=== PATIENT | female | born 1955 | race Caucasian/White ===

== ENCOUNTER 2016-12-14 19:47 | Emergency (ER) | payer OTHER, MEDICARE ==
--- OUTSIDE RECORDS SUMMARY | 2016-12-14 19:50 | XMS | Clinical Summary ---
:1955 Author Organization [facility] Address [address] [place] [address] Phone Care Team Providers Name Role Phone , Primary Care Provider Unavailable Allergies Not on File Current Medications Not on file Active Problems Not on file Social History Tobacco Use Types Packs/Day Years Used Date Never Assessed Sex Assigned at Date Recorded Not on file Last Filed Vital Signs Not on file Plan of Treatment Not on file Results Not on filefrom Last 3 Months
[2016-12-14] MEDS ORDERED: Ondansetron HCl/PF 4 MG/2 ML Vial ONE (19:56)
[2016-12-14] MEDS ORDERED: Fentanyl 100 MCG/2 ML VIAL ONE (19:56)
[2016-12-14] MEDS ORDERED: Metoclopramide HCl 10 MG/2 ML VIAL ONE (19:56)
[2016-12-14] MEDS ORDERED: Ketorolac Tromethamine 30 MG/ML VIAL ONE (19:59)
[2016-12-14] MEDS ORDERED: Dexamethasone 4 mg/ml Vial ONE (19:59)
[2016-12-14 20:16] LABS: #Basophils 0.1 thou/uL (0.0-0.2); #Eosinphils 0.1 thou/uL (0.0-0.7); #Lymphocytes 3.6 thou/uL (1.20-3.40); #Monocytes 0.8 thou/uL (0.11-0.59); #Neutrophils 7.7 thou/uL (1.40-6.50); %Basophils 0.5 % (0.0-1.0); %Eosinophils 0.6 % (0.0-10.0); %Lymphocytes 29.6 % (21.0-51.0); %Monocytes 6.2 % (0.0-10.0); Hematocrit 43.9 % (36.0-47.0); Mean Platelet Volume 6.8 fL (7.4-10.4); Red Blood Cell (RBC) Count 4.51 mill/uL (4.20-5.40); White Blood Cell (WBC) Count 12.1 thou/uL (4.8-10.8)
[2016-12-14 20:34] LABS: ALT (SGPT) 22 U/L (8-55); AST (SGOT) 21 U/L (5-34); Alkaline Phosphatase 85 U/L (40-150); Anion Gap 14 mmol/L (10-20); BUN (Urea Nitrogen) 12 mg/dL (9.8-20.1); Bilirubin, Total Less than 0.2 mg/dL (0.2-1.2); CK (CPK) 69 U/L (29-168); Calc. Creatinine Clearance 0 mL/min (70-130); Calcium 9.4 mg/dL (7.8-10.44); Carbon Dioxide 26 mmol/L (22-29); Chloride 103 mmol/L (98-107); Estimated GFR-MDRD 89; Globulin 3.5 g/dL (2.4-3.5); Protein, Total 7.5 g/dL (6.0-8.3)
[2016-12-14] MEDS ORDERED: Potassium Chloride 20 MEQ TAB ONE (20:45)
--- NOTE | 2016-12-14 21:24 | CT ---
CT HEAD WITHOUT IV CONTRAST: 12/14/16 HISTORY: Acute headache that began at 1200 hours today. High blood pressure. COMPARISON: 02/20/15 FINDINGS: There is no evidence of a hemorrhage, acute infarction, mass effect or midline shift. Ventricular sy stem is normal in size, shape and position. There has been no interval change when compared to the p rior exam. IMPRESSION: No acute intracranial process. If symptoms persists, consider MRI of brain for further evaluation. POS: [facility]
== END 2016-12-14 21:22 | disposition home or self-care (01) ==
LOC: ERS 19:47
DX: E87.6 Hypokalemia (principal); R51 Headache; K21.9 Gastro-esophageal reflux disease without esophagitis; F41.9 Anxiety disorder, unspecified; F32.9 Major depressive disorder, single episode, unspecified; Z79.891 Long term (current) use of opiate analgesic; Z79.899 Other long term (current) drug therapy
CPT/HCPCS: 36415; 70450; 80053; 82550; 85025; 96365; 96375; J1100; J1885; J2405; J2765; J3010

== ENCOUNTER 2017-02-07 09:03 | Observation (INO) | payer OTHER ==
[2017-02-07 09:15] LABS: #Eosinphils 0.1 thou/uL (0.0-0.7); #Lymphocytes 2.8 thou/uL (1.20-3.40); #Monocytes 0.8 thou/uL (0.11-0.59); #Neutrophils 6.5 thou/uL (1.40-6.50); %Basophils 0.1 % (0.0-1.0); %Eosinophils 1.3 % (0.0-10.0); %Lymphocytes 27.6 % (21.0-51.0); %Monocytes 8.2 % (0.0-10.0); Hematocrit 41.9 % (36.0-47.0); Mean Platelet Volume 6.7 fL (7.4-10.4); Red Blood Cell (RBC) Count 4.35 mill/uL (4.20-5.40); White Blood Cell (WBC) Count 10.3 thou/uL (4.8-10.8)
[2017-02-07 09:29] LABS: ALT (SGPT) 24 U/L (8-55); AST (SGOT) 26 U/L (5-34); Alkaline Phosphatase 84 U/L (40-150); Anion Gap 15 mmol/L (10-20); BUN (Urea Nitrogen) 13 mg/dL (9.8-20.1); Bilirubin, Total 0.2 mg/dL (0.2-1.2); Calc. Creatinine Clearance 0 mL/min (70-130); Calcium 9.1 mg/dL (7.8-10.44); Carbon Dioxide 24 mmol/L (22-29); Chloride 108 mmol/L (98-107); Estimated GFR-MDRD 86; Globulin 3.2 g/dL (2.4-3.5); Protein, Total 7.1 g/dL (6.0-8.3)
[2017-02-07 09:33] LABS: Troponin I Less than 0.010 ng/mL (< 0.028)
[2017-02-07 09:56] LABS: Bilirubin Negative (Negative); Blood, Urine Negative (Negative); Glucose, Urine (Dipstick) Negative (Negative); Ketone, Urine Negative (Negative); Nitrite Negative (Negative); Protein, Urine (Dipstick) Negative (Neg-Trace); Urobilinogen 0.2 mg/dL (0.2-1.0)
[2017-02-07] MEDS ORDERED: Morphine 4 MG/ML VIAL ONE (10:09)
[2017-02-07] MEDS ORDERED: Ondansetron HCl/PF 4 MG/2 ML Vial ONE (10:10)
[2017-02-07] MEDS ORDERED: Nitroglycerin 2% Ointment 1 INCH/1 GM Packet ONE (10:10)
--- NOTE | 2017-02-07 10:11 | RAD ---
PORTABLE AP CHEST XRAY: DATE: 02/07/17. HISTORY: Chest pain. COMPARISON: 03/16/16. FINDINGS: Again noted is a linear density at the right lung base which given stability over this period of time may represent scarring. There is minimal linear scarring versus atelectasis at the left lung base. The lungs are otherwise clear. Cardiac silhouette and pulmonary vasculature are within normal limit s. No other interval change. IMPRESSION: 1. No acute cardiopulmonary process. 2. Scarring right lung base. 3. Minimal atelectasis versus scarring left lung base. POS: [facility]
[2017-02-07 12:45] LABS: Troponin I Less than 0.010 ng/mL (< 0.028)
[2017-02-07] MEDS ORDERED: Nitroglycerin 2% Ointment 1 INCH/1 GM Packet TOP SCH (14:00)
[2017-02-07] MEDS ORDERED: Senokot 8.6 MG TAB PO PRN (14:13)
[2017-02-07] MEDS ORDERED: Pepto Bismol Chew TAB PO PRN (14:13)
[2017-02-07] MEDS ORDERED: Mag-Al 1200 mg/1200 mg/30 ML UDCUP PO PRN (14:13)
[2017-02-07] MEDS ORDERED: Guaifenesin DM 100-10/5 ML UDCUP PO PRN (14:13)
[2017-02-07] MEDS ORDERED: Acetaminophen 325 MG TAB PO PRN (14:13)
[2017-02-07] MEDS ORDERED: Ondansetron ODT 4 MG TAB PO PRN (14:16)
[2017-02-07] MEDS ORDERED: Ondansetron HCl/PF 4 MG/2 ML Vial IVP PRN (14:16)
--- NOTE | 2017-02-07 14:22 | HP ---
REASON FOR ADMISSION: Chest pain. HISTORY OF PRESENT ILLNESS: The patient had come to [facility] for a routine echo. After that, the patient was trying to preregister for a cardiac catheterization on Tuesday. During this process of walking up to the hospital from [facility] office, the patient developed retrosternal chest pain. She also had associated shortness of breath and palpitations. She felt like she would pass out. The chest pain was 9/10 in intensity. She received morphine, nitroglycerin transdermal, and aspirin. All of this finally brought her chest pain down. The chest pain is worse on deep breathing. She has no complaints of cough or expectoration. No complaints of fever. No flu-like symptoms. She states she has had prior stress test x2, the last one being more than 15 years ago, both of which were abnormal. These were done at Dr. Romero' s office. She has never had a cardiac catheterization before. PAST MEDICAL/SURGICAL HISTORY: Depression, hypertension, anxiety disorder, prior history of acute pancreatitis x2 with atrophy and takes Creon, history of melanomas with prior resection, prior history of cholecystectomy in 1998 with ERCP and sphincterotomy, fibromyalgia, right lower leg laceration with skin grafting, tonsillectomy, hysterectomy. CURRENT MEDICATIONS: The patient is on Xanax 0.5 mg p.o. 1 tablet in a.m. and 2 tablets at bedtime, Abilify 2 mg p.o. daily for depression, Lamictal 50 mg p.o. daily for depression per patient, Lexapro 10 mg in a.m. and 5 mg p.o. q.p.m. again for depression, Estradiol 0.5 mg p.o. q.a.m., Benicar 40 mg p.o. q.a.m., Lasix 20 mg p.o. daily, K-Dur 20 mEq p.o. daily, Creon 36,000 two capsules before meals, one before breakfast and one with evening snack. She is also on hydrocodone, Excedrin and ferritin on a p.r.n. basis. ALLERGIES: BACTRIM and LEVAQUIN. PERSONAL HISTORY: Does not abuse alcohol or drugs. No history of smoking. FAMILY HISTORY: Mother is alive and she is 92 years old. She has had history of stent placed for her coronaries. Father of massive CVA at the age of 84 years. REVIEW OF SYSTEMS: The following complete review of systems was negative, unless otherwise mentioned in the HPI or below: Constitutional: Weight loss or gain, ability to conduct usual activities. Skin: Rash, itching. Eyes: Double vision, pain. ENT/Mouth: Nose bleeding, neck stiffness, pain, tenderness. Cardiovascular: Palpitations, dyspnea on exertion, orthopnea. Respiratory: Shortness of breath, wheezing, cough, hemoptysis, fever or night sweats. Gastrointestinal: Poor appetite, abdominal pain, heartburn, nausea, vomiting, constipation, or diarrhea. Genitourinary: Urgency, frequency, dysuria, nocturia. Musculoskeletal: Pain, swelling. Neurologic/Psychiatric: Anxiety, depression. Allergy/Immunologic: Skin rash, bleeding tendency. PHYSICAL EXAMINATION: GENERAL: The patient is a 61-year-old female who is currently not in any acute distress and is chest pain free. VITAL SIGNS: Blood pressure on arrival 162/74, pulse 100 per minute, respiratory rate 16 per minute, temperature 98.2 degrees Fahrenheit, saturating 95% on room air. NECK: Supple, no elevated JVD. HEENT: Eyes; extraocular muscles intact. Pupils reacting to light. Oral cavity; mucous membranes are moist. No exudates or congestion. CARDIOVASCULAR: S1, S2 heard. Regular rhythm. RESPIRATORY: Air entry 2+ bilateral. No rales or rhonchi. ABDOMEN: Soft, bowel sounds heard. No tenderness, rigidity or guarding. EXTREMITIES: No peripheral edema or calf tenderness. VASCULAR SYSTEM: Peripheral pulses 1+ bilateral. No ischemic ulcerations or gangrene. CENTRAL NERVOUS SYSTEM: No gross focal deficits seen. Patient is alert, awake , oriented x3. PSYCHIATRIC: The patient's mood is euthymic. No hallucinations or delusions. LABORATORY AND X-RAY FINDINGS: White count of 10, H&H 13 and 41, platelet count 347. MCV is 96 with 62% neutrophils. Electrolytes are stable. BUN 13, creatinine 0.7, glucose 68. Troponin x2 is negative. BNP 69. Chest x-ray done shows no acute cardiopulmonary abnormalities. EKG done shows normal sinus rhythm at 91 beats per minute. CLINICAL IMPRESSION AND PLAN: The patient will be placed under observation on telemetry for chest pain, rule out acute coronary syndrome. The patient was apparently scheduled for cardiac catheterization on Tuesday by Dr. Tuttle. In view of her current chest pain with complete relief with nitroglycerin and aspirin along with morphine, the patient will be kept n.p.o. after midnight for cardiac catheterization in the morning. I have discussed this with Dr. Tuttle. She has had an echo done this morning at [facility]. We will see the trending of one more set of troponin. We will continue her home medications including Xanax, Abilify, full dose aspirin, Lexapro, lamotrigine as before. She will be on a small dose of Lopressor for cardiac protection for now. We will also place her on nitro paste half inch q.8 hourly. We will continue to closely monitor her on telemetry. [facility]
[2017-02-07] MEDS: HYDROcodone/Acetaminophen 10/325 mg Tablet PO PRN ×2 (14:42→22:18)
[2017-02-07 14:44] VITALS: BMI 29.5
[2017-02-07] MEDS ORDERED: Ibuprofen 600 MG TAB PO SCH (16:45)
[2017-02-07] MEDS ORDERED: Communication Order-Pharmacy FS SCH ×2 (16:45)
[2017-02-07] MEDS ORDERED: Diazepam 5 MG TAB PO SCH (16:45)
[2017-02-07 17:13] LABS: Troponin I Less than 0.010 ng/mL (< 0.028)
[2017-02-07] MEDS ORDERED: Ketorolac Tromethamine 30 MG/ML VIAL IVP PRN (19:00)
[2017-02-07] MEDS ORDERED: ALPRAZolam 1 MG TAB PO PRN (19:09)
[2017-02-07] MEDS ORDERED: ALPRAZOLAM PO SCH ×2 (21:00)
[2017-02-07] MEDS: Famotidine 20 MG TAB PO SCH (21:04)
[2017-02-07] MEDS: Metoprolol Tartrate 25 MG TAB PO SCH (21:04)
[2017-02-08 04:52] LABS: #Eosinphils 0.2 thou/uL (0.0-0.7); #Lymphocytes 2.2 thou/uL (1.20-3.40); #Monocytes 0.5 thou/uL (0.11-0.59); #Neutrophils 2.6 thou/uL (1.40-6.50); %Basophils 0.6 % (0.0-1.0); %Eosinophils 2.8 % (0.0-10.0); %Lymphocytes 39.7 % (21.0-51.0); %Monocytes 9.8 % (0.0-10.0); Hematocrit 37.8 % (36.0-47.0); Red Blood Cell (RBC) Count 3.85 mill/uL (4.20-5.40); White Blood Cell (WBC) Count 5.4 thou/uL (4.8-10.8)
[2017-02-08] MEDS ORDERED: Iopamidol 370 76% 100 ML VIAL ONE ×2 (05:05→17:28)
[2017-02-08 05:06] LABS: Anion Gap 10 mmol/L (10-20); BUN (Urea Nitrogen) 12 mg/dL (9.8-20.1); Calc. Creatinine Clearance 117 mL/min (70-130); Calcium 8.3 mg/dL (7.8-10.44); Carbon Dioxide 26 mmol/L (22-29); Chloride 106 mmol/L (98-107); Cholesterol 173 mg/dl (< 200 Desired); Estimated GFR-MDRD Greater than 90; LDL Cholesterol, Calculated 83 mg/dL
[2017-02-08] MEDS: Famotidine 20 MG TAB PO SCH (05:56)
[2017-02-08] MEDS: Metoprolol Tartrate 25 MG TAB PO SCH (05:57)
[2017-02-08] MEDS ORDERED: Diazepam 5 MG TAB PO SCH (06:00)
[2017-02-08] MEDS: Sodium Chloride 0.9% 1,000 ML IV SCH ×2 (06:02→15:54)
[2017-02-08] MEDS: HYDROcodone/Acetaminophen 10/325 mg Tablet PO PRN ×2 (08:20→12:32)
[2017-02-08] MEDS ORDERED: Heparin 1000 UNIT/NS 500ML(OR) 1,000 ML ONE (08:31)
--- NOTE | 2017-02-08 08:34 | PDOC.PN ---
- Subjective Encounter Start Date: 02/08/17 Encounter Start Time: 07:15 Subjective: no further chest pain or sob - Objective Resuscitation Status: Resuscitation Status FULL:Full Resuscitation MAR Reviewed: Yes Vital Signs & Weight: Vital Signs (12 hours) Temp Pulse Resp BP BP Pulse Ox 02/08/17 07:51 97.6 F 74 16 145/75 H 93 L 02/08/17 04:21 97.6 F 77 16 138/71 93 L 02/08/17 02:42 96 02/07/17 21:11 97.5 F L 81 16 02/07/17 20:43 97.5 F L 81 16 136/69 93 L Weight Weight 172 lb 5 oz I&O: 02/07/17 02/08/17 02/09/17 06:59 06:59 06:59 Intake Total 960 Balance 960 Result Diagrams: 02/08/17 04:24 02/08/17 04:24 Phys Exam - Physical Examination HEENT: PERRLA, moist MMs Neck: no JVD, supple Respiratory: no wheezing, no rales Cardiovascular: RRR, no significant murmur Gastrointestinal: soft, non-tender, positive bowel sounds Musculoskeletal: no edema, pulses present Neurological: non-focal, moves all 4 limbs Psychiatric: A&O x 3 Dx/Plan (1) Chest pain Code(s): R07.9 - CHEST PAIN, UNSPECIFIED Status: Acute Qualifiers: Chest pain type: unspecified Qualified Code(s): R07.9 - Chest pain, unspecified (2) H/O fibromyalgia Code(s): Z87.39 - PERSONAL HISTORY OF DISEASES OF THE MS SYS AND CONN TISS Status: Chronic (3) Anxiety and depression Code(s): F41.9 - ANXIETY DISORDER, UNSPECIFIED; F32.9 - MAJOR DEPRESSIVE DISORDER, SINGLE EPISODE, UNSPECIFIED Status: Chronic (4) GERD (gastroesophageal reflux disease) Code(s): K21.9 - GASTRO-ESOPHAGEAL REFLUX DISEASE WITHOUT ESOPHAGITIS Status: Chronic Qualifiers: Esophagitis presence: esophagitis presence not specified Qualified Code(s) : K21.9 - Gastro-esophageal reflux disease without esophagitis (5) Hypertension Code(s): I10 - ESSENTIAL (PRIMARY) HYPERTENSION Status: Chronic Qualifiers: Hypertension type: essential hypertension Qualified Code(s): I10 - Essential (primary) hypertension (6) Migraine Code(s): G43.909 - MIGRAINE, UNSP, NOT INTRACTABLE, WITHOUT STATUS MIGRAINOSUS Status: Chronic Qualifiers: Migraine type: unspecified - Plan cardiac enzymes are -ve -: ldl is around 80 -: for cath this am -: dc plan based on cath results * . Review of Systems - Medications/Allergies Allergies/Adverse Reactions: Allergies Allergy/AdvReac Type Severity Reaction Status Date / Time levofloxacin [From Levaquin] Allergy Severe Anaphylaxis Verified 02/08/17 01:53 sulfamethoxazole Allergy Severe Anaphylaxis Verified 10/09/15 10:56 [From Bactrim] trimethoprim [From Bactrim] Allergy Severe Anaphylaxis Verified 10/09/15 10:56 pantoprazole sodium AdvReac Headache Verified 09/29/15 22:26 [From Protonix] Medications: Current Medications Acetaminophen (Tylenol) 650 mg PO Q4H PRN PRN Reason: Headache/Fever or Pain Hydrocodone Bitart/Acetaminophen ([place] 10/325) 1 tab PO Q4H PRN PRN Reason: Pain Last Admin: 02/08/17 08:20 Dose: 1 tab Al Hydroxide/Mg Hydroxide (Maalox) 30 ml PO Q6H PRN PRN Reason: Heartburn or Indigestion Alprazolam (Xanax) 1 mg PO HS PRN PRN Reason: Anxiety Last Admin: 02/07/17 21:05 Dose: 1 mg Aripiprazole (Abilify) 2 mg PO QAM [facility] Last Admin: 02/08/17 05:56 Dose: 2 mg Aspirin (Aspirin) 325 mg PO DAILY [facility] Last Admin: 02/08/17 05:56 Dose: 325 mg Bismuth Subsalicylate (Pepto Bismol) 2 tab PO Q1H PRN PRN Reason: Diarrhea/Loose Stools Diazepam (Valium) 5 mg PO ONE [facility] Stop: 02/08/17 16:46 Escitalopram Oxalate (Lexapro) 10 mg PO QAM [facility] Last Admin: 02/08/17 05:56 Dose: 10 mg Estradiol (Estrace) 0.5 mg PO DAILY [facility] Last Admin: 02/08/17 05:56 Dose: 0.5 mg Famotidine (Pepcid) 20 mg PO BID [facility] Last Admin: 02/08/17 05:56 Dose: 20 mg Guaifenesin/Dextromethorphan (Robitussin Dm) 15 ml PO Q4H PRN PRN Reason: Cough Sodium Chloride (Normal Saline 0.9%) 1,000 mls @ 100 mls/hr IV .Q10H [facility] Last Admin: 02/08/17 06:02 Dose: 1,000 mls Lamotrigine (Lamictal) 50 mg PO QAM [facility] Last Admin: 02/08/17 05:56 Dose: 50 mg Metoprolol Tartrate (Lopressor) 12.5 mg PO BID [facility] Last Admin: 02/08/17 05:57 Dose: 12.5 mg Alprazolam [Xanax Xr (0.5 Mg] 1 Tab) 0 each PO QAM [facility] Alprazolam [Xanax Xr (0.5 Mg] 2 Tab)) 0 each PO HS [facility] Senna (Senokot) 2 tab PO HSPRN PRN PRN Reason: Constipation Sodium Chloride (Flush - Normal Saline) 10 ml IVF Q12HR [facility] Last Admin: 02/08/17 05:57 Dose: Not Given
[2017-02-08] MEDS ORDERED: Estradiol 1 MG TAB PO SCH (09:00)
[2017-02-08] MEDS ORDERED: lamoTRIgine 25 MG TAB PO SCH (09:00)
[2017-02-08] MEDS ORDERED: ALPRAZOLAM PO SCH ×2 (09:00)
[2017-02-08] MEDS ORDERED: Enoxaparin Sodium 40 MG/0.4 ML SYRINGE SC SCH (09:00)
[2017-02-08] MEDS ORDERED: ESTRADIOL 0.5 MG PO SCH (09:00)
[2017-02-08] MEDS ORDERED: Aripiprazole 2 MG TAB PO SCH (09:00)
[2017-02-08] MEDS ORDERED: Escitalopram Oxalate 10 mg Tablet PO SCH (09:00)
[2017-02-08] MEDS ORDERED: Aspirin 325 MG TAB PO SCH (09:00)
[2017-02-08] MEDS ORDERED: Fentanyl 100 MCG/2 ML VIAL ONE (09:22)
[2017-02-08] MEDS ORDERED: Midazolam HCl 2 mg/2 ml Vial ONE (09:22)
[2017-02-08] MEDS ORDERED: Metoprolol Tartrate 5 MG/5 ML VIAL ONE (09:43)
[2017-02-08] MEDS ORDERED: Nitroglycerin 100MG/250ML BOT 250 ML ONE (09:43)
[2017-02-08] MEDS ORDERED: traMADol HCl 50 MG TAB PO PRN (12:34)
[2017-02-08] MEDS ORDERED: Nitroglycerin 0.4 MG TAB (25 Tab Bottle) SL PRN (12:34)
[2017-02-08] MEDS ORDERED: Acetaminophen/Codeine 30-300mg Tablet PO PRN ×2 (12:34)
[2017-02-08] MEDS ORDERED: Sodium Chloride 0.9% 200 ML IV SCH (12:45)
[2017-02-08 16:27] VITALS: BP 159/79; TEMP 97.3
--- NOTE | 2017-02-09 12:45 | DIS ---
DATE OF ADMISSION: 02/07/2017 DATE OF DISCHARGE: 02/08/2017 DISCHARGE DISPOSITION: To home. PRIMARY DISCHARGE DIAGNOSIS: Chest pain, likely noncardiac. SECONDARY DISCHARGE DIAGNOSES: Fibromyalgia, anxiety, depression, gastroesophageal reflux disease, hypertension, migraine. PROCEDURES DONE DURING HOSPITALIZATION: The patient has had cardiac catheterization done by Dr. Tuttle, which showed no flow limiting coronary artery disease. Ejection fraction was 60%. There was 10% to 20% plaque in RCA , otherwise normal coronaries. H&H are 12 and 37, platelet count 305, total cholesterol 173, triglycerides 197, LDL 83, HDL 51. Troponin x3 negative. BNP 69. DISCHARGE MEDICATIONS: Xanax as before, Abilify 2 mg p.o. q.a.m., Excedrin p.r.n. for migraine, Lexapro 5 mg at bedtime and 10 mg p.o. q.a.m., estradiol 0.5 mg p.o. q.a.m., [place] p.r.n. for pain, Lamictal 50 mg p.o. q.a.m., Creon before meals as before, Benicar 40 mg p.o. daily. ALLERGIES: LEVAQUIN, PROTONIX and SULFA. INPATIENT CONSULTS: Dr. Tuttle for Cardiology. DISCHARGE PLAN: The patient to follow up with primary care physician in 1 week. BRIEF COURSE DURING HOSPITALIZATION: The patient initially came to ER with complaints of chest pain with associated shortness of breath and palpitation. She has had 3 sets of cardiac enzymes done, which were negative. The patient was scheduled for cardiac catheterization on Tuesday by Dr. Tuttle, but this was preponed and she has had the same done during her brief stay here. The cardiac catheterization has not revealed any flow limiting disease. She has remained hemodynamically stable and will be shortly discharged home. She has had two prior abnormal stress tests done hence the scheduled cardiac catheterization. She is otherwise hemodynamically stable and is cleared for discharge by Dr. Tuttle. Please see face to face documentation on [facility] for the day of discharge. [facility]
== END 2017-02-08 16:37 | disposition home or self-care (01) ==
LOC: ERS 09:03 → ERHOLD 10:06 → INTOOBSV 10:06 → 2SW 13:55
PROVIDERS: ADMIT Internal Medicine; ATTEND Internal Medicine
DX: R07.89 Other chest pain (principal); I10 Essential (primary) hypertension; M79.7 Fibromyalgia; K21.9 Gastro-esophageal reflux disease without esophagitis; F41.9 Anxiety disorder, unspecified; F32.9 Major depressive disorder, single episode, unspecified; G43.909 Migraine, unspecified, not intractable, without status migrainosus; Z88.1 Allergy status to other antibiotic agents; Z88.2 Allergy status to sulfonamides; Z88.8 Allergy status to other drugs, medicaments and biological substances; Z79.899 Other long term (current) drug therapy; Z90.49 Acquired absence of other specified parts of digestive tract; Z98.890 Other specified postprocedural states; Z87.891 Personal history of nicotine dependence
CPT/HCPCS: 36415; 71010; 76942; 80048; 80053; 80061; 81003; 82553; 83880; 84484; 85025; 93005; 93458; 94760; 96361; 96374; 96375; 96376; 99152; 99153; A4216; C1769; G0378; J1644; J1885; J2250; J2270; J2405; J3010

== ENCOUNTER 2017-03-10 07:17 | Outpatient (CLI) | payer OTHER | END 2017-03-10 07:18 | disposition home or self-care (01) | LOC: BICULT 07:17 | PROVIDERS: ATTEND Internal Medicine Gastroenterology | DX: K86.9 Disease of pancreas, unspecified (principal); Z90.49 Acquired absence of other specified parts of digestive tract | CPT/HCPCS: 76700 ==

== ENCOUNTER 2017-03-18 08:15 | Outpatient (CLI) | payer OTHER ==
--- NOTE | 2017-03-18 12:16 | CT ---
CT ABDOMEN WITH AND WITHOUT IV CONTRAST: HISTORY: Pancreas disorder. COMPARISON: 03/16/2016 FINDINGS: Fatty infiltration and atrophy of the head and neck and midline body of the pancreas is again seen. No pancreatic calcifications are noted. No pancreatic mass is identified. There is scarring at the medial segment of the right lower lobe. Tiny hypodensity in hepatic segment 4 is stable. The spleen, adrenal glands, and kidneys are normal. The patient is post cholecystecto my. No free air, free fluid, or lymphadenopathy is seen. There are vascular calcifications without evidence of aneurysmal dilatation of the abdominal aorta. A normal appearing appendix is noted. The small bowel loops are not abnormally dilated. A small fat-containing ventral hernia is again seen. There are degenerative changes in the spine. There is mild colonic diverticulosis. IMPRESSION: Stable exam since 03/16/2016. POS: [facility]
[2017-03-18] MEDS ORDERED: Iopamidol 370 76% 100 ML VIAL ONE (16:54)
--- NOTE | 2017-03-23 10:25 | CT ---
CT ABDOMEN WITH AND WITHOUT IV CONTRAST: CT PELVIS W CON: HISTORY: Pancreas disorder. COMPARISON: 03/16/2016 FINDINGS: Fatty infiltration and atrophy of the head and neck and midline body of the pancreas is again seen. No pancreatic calcifications are noted. No pancreatic mass is identified. There is scarring at the medial segment of the right lower lobe. Tiny hypodensity in hepatic segment 4 is stable. The spleen, adrenal glands, and kidneys are normal. The patient is post cholecystecto my. No free air, free fluid, or lymphadenopathy is seen. There are vascular calcifications without evidence of aneurysmal dilatation of the abdominal aorta. A normal appearing appendix is noted. The small bowel loops are not abnormally dilated. A small fa t-containing ventral hernia is again seen. There are degenerative changes in the spine. There is mi ld colonic diverticulosis. IMPRESSION: Stable exam since 03/16/2016.
== END 2017-03-18 08:16 | disposition home or self-care (01) ==
LOC: CT 08:15
PROVIDERS: ATTEND Internal Medicine Gastroenterology
DX: K86.9 Disease of pancreas, unspecified (principal); R10.30 Lower abdominal pain, unspecified
CPT/HCPCS: 72193; 74170

== ENCOUNTER 2017-04-29 07:50 | Inpatient (IN) | payer OTHER, MEDICARE ==
[2017-04-29 08:19] LABS: #Eosinphils 0.2 thou/uL (0.0-0.7); #Monocytes 0.8 thou/uL (0.11-0.59); #Neutrophils 5.2 thou/uL (1.40-6.50); %Basophils 0.1 % (0.0-1.0); %Lymphocytes 24.4 % (21.0-51.0); %Monocytes 9.3 % (0.0-10.0); %Neutrophils 64.3 % (42.0-75.0); Hemoglobin 13.6 g/dL (12.0-16.0); Mean Corpuscular HGB CONC 33.2 g/dL (32.0-36.0); Mean Corpuscular Hemoglobin 32.5 pg (27.0-31.0); Mean Corpuscular Volume 97.8 fl (81.0-99.0); Mean Platelet Volume 7.5 fL (7.4-10.4); Platelet Count 254 thou/uL (130-400); RBC Distribution Width 11.8 % (11.5-14.5); White Blood Cell (WBC) Count 8.1 thou/uL (4.8-10.8)
[2017-04-29 08:41] LABS: ALT (SGPT) 24 U/L (8-55); AST (SGOT) 18 U/L (5-34); Alkaline Phosphatase 79 U/L (40-150); Anion Gap 10 mmol/L (10-20); BUN (Urea Nitrogen) 13 mg/dL (9.8-20.1); Bilirubin, Total 0.4 mg/dL (0.2-1.2); CK (CPK) 61 U/L (29-168); Calc. Creatinine Clearance 0 mL/min (70-130); Calcium 9.1 mg/dL (7.8-10.44); Carbon Dioxide 27 mmol/L (22-29); Chloride 102 mmol/L (98-107); Estimated GFR-MDRD 84; Globulin 3.1 g/dL (2.4-3.5); Glucose 100 mg/dL (70-105); Lipase 252 U/L (8-78); Protein, Total 7.1 g/dL (6.0-8.3); Sodium 135 mmol/L (136-145)
[2017-04-29 08:45] LABS: CKMB 1.7 ng/mL (0-6.6); Troponin I Less than 0.010 ng/mL (< 0.028)
[2017-04-29 10:37] LABS: Bilirubin Negative (Negative); Blood, Urine Negative (Negative); Clarity CLEAR (Clear); Glucose, Urine (Dipstick) Negative (Negative); Leukocyte Negative (Negative); Nitrite Negative (Negative); Protein, Urine (Dipstick) Negative (Neg-Trace); Specific Gravity, Urine 1.019 (1.002-1.036); Urobilinogen 0.2 mg/dL (0.2-1.0); pH, Urine 7.5 (5.0-9.0)
[2017-04-29] MEDS ORDERED: Morphine 5 MG/ML SYRINGE SLOW IVP PRN (12:17)
[2017-04-29] MEDS ORDERED: Ondansetron HCl/PF 4 MG/2 ML Vial IVP PRN ×2 (12:17→12:28)
[2017-04-29] MEDS ORDERED: Sodium Chloride 0.9% 1,000 ML IV SCH (12:17)
[2017-04-29] MEDS ORDERED: Ondansetron ODT 4 MG TAB SL PRN (12:17)
[2017-04-29] MEDS ORDERED: Morphine 4 MG/ML Carpuject SLOW IVP PRN (12:28)
[2017-04-29] MEDS ORDERED: Lorazepam 2 MG/ML VIAL SLOW IVP PRN (12:28)
[2017-04-29] MEDS ORDERED: hydrALAZINE 20 MG/ML VIAL SLOW IVP PRN (12:28)
--- NOTE | 2017-04-29 12:34 | HP ---
PRIMARY CARE PHYSICIAN: Irma Mathis M.D. CHIEF COMPLAINT: Abdominal pain for 3 days and getting worse. HISTORY OF PRESENT ILLNESS: Ms. Hendricks is a very pleasant 61-year-old female who has a history of hypertension, history of recurrent pancreatitis and fibromyalgia. She was in her usual state of heal th until about 3 days ago. She says that she began having abdominal pain primarily in the upper epig astric region. She says it started in the morning after eating breakfast. She says it was fairly co nstant and after that she cannot really tell whether or not it was related to oral intake. She says that since he has had pancreatitis before, it seems very similar and the pain was so severe that it a woke her from sleep this morning. This is the reason she came to the emergency room for evaluation. In the ER, she was found to have an elevated lipase and she is being admitted for recurrent pancreat itis. She says that the first time they believe the pancreatitis was due to gallstones; however, the second episode she says she is not really sure what caused it. She says that she had had an ERCP an d sphincterotomy and it occurred almost immediately after the sphincterotomy, but she says they were not doing sphincterotomy for stones. It was more of a some type of "muscle release." She does not r emember any other unusual circumstances surrounding this illness; other than, she was recently starte d on meloxicam for joint pains. She says she was sent to see Dr. Goldberg, the [employer], because she suddenly had some severe pain in her hands and feet. She says that Dr. Goldberg had done a rheumato logy panel on her and said some of the markers were off, but it did not fit any particular pattern loo ch as rheumatoid arthritis or lupus etcetera. Otherwise, no other complaints. REVIEW OF SYSTEMS: Constitutional: There have been no fevers, chills, night sweats, no weight loss. HEENT: No headaches, dizziness, no visual changes, no sore throat, rhinorrhea, neck pain, no adeno luz. Pulmonary: No hemoptysis, no cough, no wheezing. Cardiovascular: She denies any chest pain , no shortness of breath, no PND, no orthopnea. Gastrointestinal: As the history of present illness . She also denies any hematemesis, no melena. Her bowels have been normal. Genitourinary: No urin adam frequency, hematuria, no hesitancy. Neurologic: No focal weakness, numbness or seizures. Psych iatric: No symptoms of anxiety or depression. Skin and integument: No skin changes. No rash. 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 PAST SURGICAL HISTORY: She has had a cholecystectomy and ERCP and sphincterectomy, tonsillectomy, hy sterectomy, [place] fundoplication, skin graft after she fell and degloved her right leg. ALLERGIES: BACTRIM and LEVAQUIN. SOCIAL HISTORY: She is . She has 4 grown children. She is a nonsmoker, nondrinker. FAMILY HISTORY: Significant for mother who had coronary artery disease and stent, cerebrovascular di sease in her father. CURRENT MEDICATIONS: Include meloxicam 15 mg daily, Abilify 2 mg daily, Xanax 0.5 mg 2 tabs as neede d, Benicar 40 mg daily, estradiol 0.5 mg daily, Lamictal 100 mg daily, Lexapro 10 mg daily, guanfacin e 1 mg daily, Toprol 25 mg daily, hydrocodone 7.5 mg as needed and cannabis. PHYSICAL EXAMINATION: VITAL SIGNS: Blood pressure was 137/73, heart rate 76, respiratory rate of 16, temperature is 98.5. HEENT: Pupils are equal, round, and reactive. Extraocular muscles are intact. Her sclerae are anic teric. Throat, no erythema, no exudates. NECK: No adenopathy, no bruits. LUNGS: Clear to auscultation. There is no wheezing, no rales. CARDIOVASCULAR: She has a normal S1, S2. I did not appreciate an S3 or S4. No murmurs, clicks or r ubs. ABDOMEN: Her abdomen is soft. She did have some epigastric tenderness, but there is no rebound or g uarding. Bowel sounds were present. EXTREMITIES: There is no clubbing, cyanosis, no edema. NEUROLOGICALLY: The exam is nonfocal. SIGNIFICANT LABORATORY RESULTS: Sodium is 135, potassium 4.0, chloride is 102, CO2 is 27, BUN of 13, creatinine 0.71, glucose is 100. The white blood cell count was 8.1, hemoglobin 13.6, hematocrit is 41, and platelet count was 254. Urine with trace ketones. The patient did not have a CT scan on admission. ASSESSMENT AND PLAN: Mr. Hendricks is a very pleasant 61-year-old female who is being admitted for ac [place] pancreatitis. The patient has a history of prior pancreatitis in the past, the etiology of which is unknown. She is not a drinker and she says that her lipids have been normal. Therefore, it is p ossible that it could be idiopathic. She will be admitted and started on IV fluids and will allow he r bowel rest as well as IV antiemetics and analgesics. We will reassess her in the a.m. If she cont inues to have significant pain, then we will consult Gastroenterology. She says that she normally se es Dr. Reis in the outpatient setting.
[2017-04-29 13:27] VITALS: BMI 28.1
[2017-04-29] MEDS: Sodium Chloride 0.9% 1,000 ML IV SCH ×2 (14:15→20:42)
[2017-04-29] MEDS: Aspirin/APAP/Caffeine Tab (Excedrin Migraine) PO PRN (16:15)
[2017-04-29] MEDS: Morphine 2 MG/ML SYRINGE SLOW IVP PRN ×2 (19:37→20:27)
[2017-04-29] MEDS: Famotidine 40 MG/4 ML VIAL SLOW IVP SCH (20:28)
[2017-04-29] MEDS: guanFACINE HCl 1 MG TAB PO SCH (20:31)
[2017-04-29] MEDS: Escitalopram Oxalate 10 mg Tablet PO SCH (20:32)
[2017-04-29] MEDS: ALPRAZolam 0.5 MG TAB PO SCH (20:33)
[2017-04-29] MEDS ORDERED: Famotidine/PF 20 mg/2ml Vial SLOW IVP SCH (21:00)
[2017-04-30] MEDS: Morphine 5 MG/ML SYRINGE SLOW IVP PRN ×2 (03:27→11:17)
[2017-04-30] MEDS: Sodium Chloride 0.9% 1,000 ML IV SCH ×4 (03:27→17:30)
[2017-04-30 05:54] LABS: #Eosinphils 0.1 thou/uL (0.0-0.7); #Lymphocytes 2.1 thou/uL (1.20-3.40); #Monocytes 0.6 thou/uL (0.11-0.59); #Neutrophils 3.9 thou/uL (1.40-6.50); %Basophils 0.4 % (0.0-1.0); %Lymphocytes 31.4 % (21.0-51.0); %Monocytes 8.5 % (0.0-10.0); %Neutrophils 57.7 % (42.0-75.0); Hemoglobin 12.2 g/dL (12.0-16.0); Mean Corpuscular HGB CONC 33.3 g/dL (32.0-36.0); Mean Corpuscular Hemoglobin 32.6 pg (27.0-31.0); Mean Corpuscular Volume 97.9 fl (81.0-99.0); Mean Platelet Volume 7.7 fL (7.4-10.4); Platelet Count 218 thou/uL (130-400); RBC Distribution Width 11.6 % (11.5-14.5); Red Blood Cell (RBC) Count 3.74 mill/uL (4.20-5.40); White Blood Cell (WBC) Count 6.8 thou/uL (4.8-10.8)
[2017-04-30 06:36] LABS: Anion Gap 10 mmol/L (10-20); BUN (Urea Nitrogen) 6 mg/dL (9.8-20.1); Calc. Creatinine Clearance 123 mL/min (70-130); Calcium 8.2 mg/dL (7.8-10.44); Carbon Dioxide 24 mmol/L (22-29); Chloride 108 mmol/L (98-107); Estimated GFR-MDRD Greater than 90; Glucose 70 mg/dL (70-105); Lipase 57 U/L (8-78); Potassium 3.1 mmol/L (3.5-5.1); Sodium 139 mmol/L (136-145)
[2017-04-30] MEDS: Aspirin/APAP/Caffeine Tab (Excedrin Migraine) PO PRN ×2 (07:50→17:29)
[2017-04-30] MEDS: Famotidine 40 MG/4 ML VIAL SLOW IVP SCH ×2 (07:51→20:51)
[2017-04-30] MEDS: Enoxaparin Sodium 40 MG/0.4 ML SYRINGE SC SCH (07:51)
[2017-04-30] MEDS: lamoTRIgine 25 MG TAB PO SCH (09:01)
[2017-04-30] MEDS: Aripiprazole 2 MG TAB PO SCH (09:01)
[2017-04-30] MEDS ORDERED: Aspirin/APAP/Caffeine Tab (Excedrin Migraine) PO SCH (10:15)
--- NOTE | 2017-04-30 13:03 | PDOC.PN ---
- Subjective Encounter Start Date: 04/30/17 Encounter Start Time: 13:01 Ms. Erazo says she is still having about 7/10 abdominal pain without medication. - Objective Resuscitation Status: Resuscitation Status FULL:Full Resuscitation MAR Reviewed: Yes Vital Signs & Weight: Vital Signs (12 hours) Temp Pulse Resp BP Pulse Ox 04/30/17 08:00 97.8 F 78 18 96 04/30/17 07:46 97.8 F 78 18 135/77 96 04/30/17 04:49 98.3 F 81 16 100 Weight Weight 164 lb I&O: 04/29/17 04/30/17 05/01/17 06:59 06:59 06:59 Intake Total 0 Balance 0 Result Diagrams: 04/30/17 05:00 04/30/17 05:00 Phys Exam - Physical Examination HEENT: PERRLA Respiratory: no wheezing, no rales, no rhonchi, clear to auscultation bilateral Cardiovascular: RRR, no significant murmur, no rub Gastrointestinal: soft, no distention, positive bowel sounds + diffuse tenderness Musculoskeletal: no edema Dx/Plan (1) Recurrent pancreatitis Code(s): K86.1 - OTHER CHRONIC PANCREATITIS Status: Acute (2) H/O fibromyalgia Code(s): Z87.39 - PERSONAL HISTORY OF DISEASES OF THE MS SYS AND CONN TISS Status: Chronic (3) Hypertension Code(s): I10 - ESSENTIAL (PRIMARY) HYPERTENSION Status: Chronic Qualifiers: (4) Migraine Code(s): G43.909 - MIGRAINE, UNSP, NOT INTRACTABLE, WITHOUT STATUS MIGRAINOSUS Status: Chronic Qualifiers: Migraine type: unspecified - Plan * Recurrent Pancreatitis- ? etiology- continue bowel rest one more day * HTN- blood pressure is stable. * Migraine Headache- continue Excedrin prn * Re-evaluate in the AM
[2017-04-30] MEDS ORDERED: ALPRAZolam 1 MG TAB PO PRN (16:20)
[2017-04-30] MEDS: Escitalopram Oxalate 10 mg Tablet PO SCH (20:49)
[2017-04-30] MEDS: guanFACINE HCl 1 MG TAB PO SCH (20:51)
[2017-04-30] MEDS: ALPRAZolam 0.5 MG TAB PO SCH (20:54)
[2017-05-01] MEDS: Sodium Chloride 0.9% 1,000 ML IV SCH ×2 (00:39→07:40)
[2017-05-01 06:21] LABS: Anion Gap 13 mmol/L (10-20); BUN (Urea Nitrogen) 8 mg/dL (9.8-20.1); Calc. Creatinine Clearance 123 mL/min (70-130); Calcium 8.4 mg/dL (7.8-10.44); Carbon Dioxide 20 mmol/L (22-29); Chloride 109 mmol/L (98-107); Estimated GFR-MDRD Greater than 90; Potassium 3.3 mmol/L (3.5-5.1); Sodium 139 mmol/L (136-145)
[2017-05-01 06:34] LABS: Glucose 54 mg/dL (70-105)
[2017-05-01 08:47] VITALS: BP 136/82; TEMP 97.5
[2017-05-01] MEDS ORDERED: Estradiol 1 MG TAB PO SCH (09:00)
[2017-05-01] MEDS ORDERED: Escitalopram Oxalate 10 mg Tablet PO SCH (09:00)
[2017-05-01] MEDS: lamoTRIgine 25 MG TAB PO SCH (09:14)
[2017-05-01] MEDS: Enoxaparin Sodium 40 MG/0.4 ML SYRINGE SC SCH (09:14)
[2017-05-01] MEDS: Aripiprazole 2 MG TAB PO SCH (09:16)
[2017-05-01] MEDS: Aspirin/APAP/Caffeine Tab (Excedrin Migraine) PO PRN (09:17)
[2017-05-01] MEDS: Famotidine 40 MG/4 ML VIAL SLOW IVP SCH (09:25)
--- NOTE | 2017-05-01 11:15 | PDOC.PN ---
- Subjective Encounter Start Date: 05/01/17 Encounter Start Time: 11:13 Ms. Hendricks was seen in follow-up. She says the abdominal pain has improved. She feels a little nauseated, but otherwise ok. - Objective Resuscitation Status: Resuscitation Status FULL:Full Resuscitation MAR Reviewed: Yes Vital Signs & Weight: Vital Signs (12 hours) Temp Pulse Resp BP Pulse Ox 05/01/17 08:46 97.5 F L 78 18 136/82 97 05/01/17 08:00 97.5 F L 78 18 97 Weight Weight 164 lb I&O: 04/30/17 05/01/17 05/02/17 06:59 06:59 06:59 Intake Total 0 1900 Balance 0 1900 Result Diagrams: 04/30/17 05:00 05/01/17 05:46 Additional Labs: Accuchecks 05/01/17 04/30/17 04/30/17 04:21 19:34 16:32 POC Glucose 62 L 74 72 Phys Exam - Physical Examination HEENT: PERRLA Respiratory: no wheezing, no rales, no rhonchi, clear to auscultation bilateral Cardiovascular: RRR, no significant murmur Gastrointestinal: soft, non-tender, positive bowel sounds Musculoskeletal: no edema Dx/Plan (1) Recurrent pancreatitis Code(s): K86.1 - OTHER CHRONIC PANCREATITIS Status: Acute (2) H/O fibromyalgia Code(s): Z87.39 - PERSONAL HISTORY OF DISEASES OF THE MS SYS AND CONN TISS Status: Chronic (3) Hypertension Code(s): I10 - ESSENTIAL (PRIMARY) HYPERTENSION Status: Chronic Qualifiers: (4) Migraine Code(s): G43.909 - MIGRAINE, UNSP, NOT INTRACTABLE, WITHOUT STATUS MIGRAINOSUS Status: Chronic Qualifiers: Migraine type: unspecified - Plan * Recurrent Pancreatitis- improving * HTN- blood glucose is stable * Will replace potassium, and her diet has been advanced which should take care of the low glucose * If she tolerates a full liquid diet can be discharged home later today..
--- NOTE | 2017-05-01 21:38 | DIS ---
DATE OF ADMISSION: 04/29/2017 DATE OF DISCHARGE: 05/01/2017 PRIMARY CARE PHYSICIAN: Irma Mathis MD DISCHARGE DISPOSITION: Home. PRIMARY DISCHARGE DIAGNOSES: 1. Recurrent pancreatitis, etiology is unknown. 2. Hypertension. 3. History of generalized anxiety. 4. History of melanoma. 5. History of fibromyalgia. DISCHARGE MEDICATIONS: Include Zofran 4 mg p.o. q.8 as needed, Benicar 40 mg daily, Toprol-XL 25 mg daily, meloxicam 15 mg daily, pancrelipase or Creon 36,000 units as directed, Lamictal 50 mg daily, N orco 7.5 mg t.i.d. as needed, guanfacine 1 mg at bedtime, estradiol 0.5 mg daily, Lexapro 10 mg in th e a.m. and 5 mg in the p.m., Excedrin Migraine 1 tablet t.i.d., Abilify 2 mg daily, Xanax 1 mg extend ed-release daily and 1 mg at bedtime. HOSPITAL COURSE: Ms. Hendricks is a pleasant 61-year-old female [facility], very similar to what she has experienced in the past when she melton s had an episode of pancreatitis. Her lipase was elevated at 252 on admission. She was placed on ashok wel rest and improved over the course of the next 2 days. Once she was able to tolerate a full liqui d diet, she is being discharged and to follow up with Dr. Lomeli as an outpatient. This is her gastro enterologist who can then determine what or if any additional testing needs to be done.
== END 2017-05-01 15:36 | disposition home or self-care (01) | DRG 440 ==
LOC: ERS 07:50 → T4-A 10:35
PROVIDERS: ADMIT Internal Medicine; ATTEND Internal Medicine
DX: K85.90 Acute pancreatitis without necrosis or infection, unspecified (principal); F41.1 Generalized anxiety disorder; K86.1 Other chronic pancreatitis; I10 Essential (primary) hypertension; Z85.820 Personal history of malignant melanoma of skin
CPT/HCPCS: 36415; 36416; 80048; 80053; 81003; 82550; 82553; 83690; 84484; 85025; 93005; 96361; 96374; J2270; A4216; J1650

== ENCOUNTER 2017-05-05 15:06 | Outpatient (CLI) | payer OTHER, MEDICARE | END 2017-05-05 15:07 | disposition home or self-care (01) | LOC: BICRAD 15:06 | PROVIDERS: ATTEND Internal Medicine Rheumatology | DX: M54.9 Dorsalgia, unspecified (principal); M47.894 Other spondylosis, thoracic region | CPT/HCPCS: 72072 ==

== ENCOUNTER 2017-05-26 07:34 | Outpatient (CLI) | payer OTHER ==
--- NOTE | 2017-05-26 13:10 | MRI ---
MRI OF THE ABDOMEN WITHOUT AND WITH CONTRAST: Comparison: CT abdomen/pelvis, 03-18-17 History: Idiopathic chronic pancreatitis. Technique: Multiplanar, multisequence MRI images were obtained of the abdomen without and with IV con trast. MRCP images were performed. FINDINGS: The liver shows a tiny focus measuring 3-4 mm in size due to signal in the right lobe of the liver wh ich likely represents a small cyst. No other liver lesions are seen. The gallbladder has been removed . The common bile duct is normal in caliber. The pancreatic duct is normal in caliber. There is no ev idence of pancreatic divisum or an annular pancreas. The pancreas demonstrates normal signal intensity without abnormal enhancement. No masses are seen in the pancreas. The kidneys, adrenal glands, and spleen are unremarkable. No abnormal adenopathy is seen. IMPRESSION: 1. No significant pancreatic abnormality. 2. Hepatic cysts. POS: OFF
== END 2017-05-26 07:35 | disposition home or self-care (01) ==
LOC: MRI 07:34
PROVIDERS: ATTEND Internal Medicine Gastroenterology
DX: K86.1 Other chronic pancreatitis (principal); R10.13 Epigastric pain; K76.89 Other specified diseases of liver
CPT/HCPCS: 74183

== ENCOUNTER 2017-06-13 15:26 | Outpatient (CLI) | payer OTHER | END 2017-06-13 15:27 | disposition home or self-care (01) | LOC: BICRAD 15:26 | PROVIDERS: ATTEND Internal Medicine | DX: M25.552 Pain in left hip (principal); M16.12 Unilateral primary osteoarthritis, left hip ==

== ENCOUNTER 2017-09-07 12:58 | Outpatient (CLI) | payer OTHER | END 2017-09-07 12:59 | disposition home or self-care (01) | LOC: BICULT 12:58 | PROVIDERS: ATTEND Internal Medicine | DX: M54.2 Cervicalgia (principal) | CPT/HCPCS: 76536 ==

== ENCOUNTER 2017-12-16 23:11 | Emergency (ER) | payer OTHER ==
[2017-12-16 23:38] LABS: #Basophils 0.1 thou/uL (0.0-0.2); #Eosinphils 0.1 thou/uL (0.0-0.7); #Lymphocytes 2.4 thou/uL (1.20-3.40); #Monocytes 0.6 thou/uL (0.11-0.59); %Basophils 0.8 % (0.0-1.0); %Lymphocytes 34.1 % (21.0-51.0); %Neutrophils 56.1 % (42.0-75.0); Hemoglobin 13.5 g/dL (12.0-16.0); Mean Corpuscular HGB CONC 32.8 g/dL (32.0-36.0); Mean Corpuscular Hemoglobin 32.5 pg (27.0-31.0); Mean Corpuscular Volume 99.1 fL (78.0-98.0); Mean Platelet Volume 6.6 fL (7.4-10.4); Platelet Count 338 thou/uL (130-400); RBC Distribution Width 12.4 % (11.5-14.5); Red Blood Cell (RBC) Count 4.17 mill/uL (4.20-5.40); White Blood Cell (WBC) Count 7.2 thou/uL (4.8-10.8)
[2017-12-16 23:58] LABS: ALT (SGPT) 28 U/L (8-55); AST (SGOT) 21 U/L (5-34); Albumin 4.4 g/dL (3.5-5.0); Alkaline Phosphatase 80 U/L (40-150); Anion Gap 11 mmol/L (10-20); BUN (Urea Nitrogen) 21 mg/dL (9.8-20.1); Bilirubin, Total 0.2 mg/dL (0.2-1.2); Calc. Creatinine Clearance 0 mL/min (70-130); Calcium 9.2 mg/dL (7.8-10.44); Carbon Dioxide 28 mmol/L (22-29); Chloride 105 mmol/L (98-107); Estimated GFR-MDRD 76; Globulin 3.2 g/dL (2.4-3.5); Glucose 98 mg/dL (70-105); Lipase 13 U/L (8-78); Potassium 4.1 mmol/L (3.5-5.1); Protein, Total 7.6 g/dL (6.0-8.3); Sodium 140 mmol/L (136-145)
[2017-12-17 00:13] LABS: CKMB 1.7 ng/mL (0-6.6); Troponin I Less than 0.010 ng/mL (< 0.028)
[2017-12-17] MEDS ORDERED: Lidocaine Viscous Sol 2% 15 ml UD Cup ONE (00:48)
[2017-12-17] MEDS ORDERED: Mag-Al 1200 mg/1200 mg/30 ML UDCUP ONE (00:48)
[2017-12-17 03:00] LABS: Bilirubin Negative (Negative); Blood, Urine Negative (Negative); Clarity CLEAR (Clear); Glucose, Urine (Dipstick) Negative (Negative); Leukocyte Negative (Negative); Nitrite Negative (Negative); Protein, Urine (Dipstick) Negative (Neg-Trace); Specific Gravity, Urine 1.016 (1.002-1.036); Urobilinogen 0.2 mg/dL (0.2-1.0); pH, Urine 6.5 (5.0-9.0)
--- NOTE | 2017-12-17 08:40 | CT ---
CT ABDOMEN WITH CONTRAST CT PELVIS WITH CONTRAST: DATE: 12-17-17 TIME: 1:14 A.M. HISTORY: 62-year-old female with acute upper abdominal pain with nausea. COMPARISON: 03-18-17 TECHNIQUE: IV injection of iodinated contrast media: Administered Oral contrast media: Not administered FINDINGS: At L4-5 there is diffuse disc bulge, degenerative facet hypertrophy and ligamentum flavum thickening causing severe central spinal canal stenosis. There is also a left lateral disc herniation protruding into the left neural foramen at that level. The appendix, bilateral kidneys, adrenals, liver, spleen are normal. There is low attenuation of the uncinate process, head, and proximal body of the pancrea s, similar to 03-16-16 and 03-18-17, probably representing fatty infiltration or fatty atrophy of the pancreas. There are cholecystectomy clips. No abdominal aortic aneurysm. Moderate volume of colonic stool. No small bowel dilatation. No pneumoperitoneum or ascites. Lung bases are grossly clear. No pl eural effusion. Surgical clips at the esophagogastric junction. Tiny 0.3 cm hypodensity near the junc tion between the left and right lobes of the liver in a subcapsular location is unchanged since 03-09 and is therefore benign. No small bowel dilation. Decompressed urinary bladder. Absent uterus. IMPRESSION: 1. Status post cholecystectomy, hysterectomy, and surgery of possible hiatal hernia repair. 2. No acute findings. 3. Fatty infiltration/ fatty atrophy of the pancreas. 4. Lumbar spondylosis, with severe central spinal canal stenosis at L4-5, and left lateral disc herni ation there. KATYA Us POS: [facility]
[2017-12-17] MEDS ORDERED: ISOVUE-370 76%-LOCM 1 ML ONE (10:44)
== END 2017-12-17 03:29 | disposition home or self-care (01) ==
LOC: ERS 23:11
DX: R10.13 Epigastric pain (principal); F41.9 Anxiety disorder, unspecified; F32.9 Major depressive disorder, single episode, unspecified; Z79.899 Other long term (current) drug therapy
CPT/HCPCS: 36415; 74177; 80053; 81003; 82553; 83605; 83690; 84484; 85025; 93005

== ENCOUNTER 2018-01-04 11:10 | Outpatient (CLI) | payer OTHER | END 2018-01-04 11:11 | disposition home or self-care (01) | LOC: BICMAMMO 11:10 | PROVIDERS: ATTEND Internal Medicine | DX: Z12.31 Encounter for screening mammogram for malignant neoplasm of breast (principal); Z85.820 Personal history of malignant melanoma of skin | CPT/HCPCS: 77063; 77067 ==

== ENCOUNTER 2018-02-24 08:51 | Outpatient (CLI) | payer OTHER ==
--- NOTE | 2018-02-24 11:47 | MRI ---
CERVICAL SPINE MRI WITHOUT CONTRAST: DATE: 02/24/2018. COMPARISON: None. HISTORY: Cervical pain radiating down the left arm with numbness, cervical radiculopathy. TECHNIQUE: Multiplanar, multisequence MR imaging of the cervical spine obtained without contrast. FINDINGS: The sagittal STIR imaging demonstrates no focal area of osseous marrow edema. Cervical vertebral body height and alignment is within normal limits. There is mild degenerative jimi nge at the atlantoaxial interspace. C2-3: Facet and uncovertebral osteophyte formation noted on the right with mild right neural foramin al stenosis. No significant central canal or left neural foraminal stenosis. C3-4: Mild bilateral facet hypertrophy. No significant central canal or neural foraminal stenosis. C4-5: No central canal or neural foraminal stenosis. C5-6: Disk desiccation and mild disk bulge. Partial effacement of ventral thecal sac with no signif icant central canal or neural foraminal stenosis. C6-7: Intervertebral disk height and signal intensity within normal limits with no significant centr al canal or neural foraminal stenosis. C7-T1: There is a benign C7 hemangioma. There is no significant central canal or neural foraminal s tenosis. No focal area of abnormal signal intensity is identified within the cervical cord. IMPRESSION: No significant central canal or neural foraminal stenosis. POS: C
--- NOTE | 2018-02-24 12:12 | MRI ---
LUMBAR SPINE MRI WITHOUT IV CONTRAST: HISTORY: A 62-year-old female with a history of lumbar radiculopathy. Bilateral leg pain for years as well as low back pain. FINDINGS: Multiplanar, multisequence MRI examination of the lumbar spine is performed. There are some generali zed disk desiccation changes and ligament and facet hypertrophic changes. Conus medullaris region is unremarkable terminating at L1. L1-L2, L2-3, and L3-L4 disk levels are unremarkable. At L4-L5, there is severe central spinal canal and lateral recess stenosis with severe ligament and f acet hypertrophic changes with fluid within the facet joints as well as adjacent synovial cysts inclu ding some interosseous degenerative cysts greater on the left side. In the inferior left facet, ther e is a very prominent focal area of extrusion involving the left paracentral and left posterolateral disk with associated severe left foraminal stenosis. Mild, 0.2 cm anterolisthesis of L4 on L5. AT L5-S1: No canal, lateral recess, or foraminal stenosis. IMPRESSION: Very severe central spinal canal stenosis at L4-L5 with an associated left paracentral and posterolat eral extruded disk herniation with severe left foraminal stenosis as well as prominent facet arthrosi s with fluid within the facet joints and adjacent synovial cysts including some primarily left-sided intraosseous degenerative cystic change. POS: [facility]
--- NOTE | 2018-02-24 12:22 | RAD ---
CERVICAL SPINE SERIES WITH FLEXION AND EXTENSION FOUR VIEWS: HISTORY: Neck pain with tingling in the left hand. FINDINGS: The vertebral bodies are normal in height. The disk spaces appear well preserved. Fairly minimal de generative facet changes are present. I do not see any abnormal motion in flexion or extension. No soft tissue swelling. Bilateral carotid bulb calcifications are present. IMPRESSION: 1. Essentially unremarkable cervical spine series. 2. Bilateral carotid bulb calcification. POS: [facility]
--- NOTE | 2018-02-24 12:24 | RAD ---
FOUR VIEWS LUMBAR SPINE: DATE: 02/24/2018. COMPARISON: None. HISTORY: Lumbar radiculopathy. FINDINGS: Post cholecystectomy clips are noted in the right upper quadrant. Lumbar pedicles appear intact on the frontal imaging. Neutral lateral exam demonstrates facet hypertrophy at L4-5 and anterolisthesis at L4-5 measuring 6 m m. The flexion imaging demonstrates anterolisthesis of L4 on L5 to increase to 8 mm. On the extensi on imaging, the anterolisthesis of L4 on L5 decreases to 5 mm. There is disk space narrowing and mil d anterior osteophyte formation at L4-5. There is facet hypertrophy at L5-S1. IMPRESSION: Degenerative change within the lumbar spine which includes anterolisthesis of L4 on L5, most prominen t with flexion. POS: [facility]
== END 2018-02-24 08:52 | disposition home or self-care (01) ==
LOC: BICMRI 08:51
PROVIDERS: ATTEND Surgery
DX: M47.26 Other spondylosis with radiculopathy, lumbar region (principal); M54.12 Radiculopathy, cervical region; M54.5 Low back pain; M43.16 Spondylolisthesis, lumbar region; I65.23 Occlusion and stenosis of bilateral carotid arteries; M48.061 Spinal stenosis, lumbar region without neurogenic claudication; M51.16 Intervertebral disc disorders with radiculopathy, lumbar region; M71.30 Other bursal cyst, unspecified site
CPT/HCPCS: 72050; 72110; 72141; 72148

== ENCOUNTER 2018-04-25 02:46 | Outpatient (CLI) | payer OTHER ==
[2018-04-25 11:15] LABS: Hemoglobin 12.9 g/dL (12.0-16.0); Mean Corpuscular HGB CONC 32.9 g/dL (32.0-36.0); Mean Corpuscular Hemoglobin 32.1 pg (27.0-31.0); Mean Corpuscular Volume 97.6 fL (78.0-98.0); Mean Platelet Volume 7.3 fL (7.4-10.4); Platelet Count 329 thou/uL (130-400); RBC Distribution Width 11.4 % (11.5-14.5); Red Blood Cell (RBC) Count 4.02 mill/uL (4.20-5.40)
[2018-04-25 11:17] LABS: INR-International Normal Ratio 0.9; PTT 29.3 SEC (22.9-36.1); Prothrombin Time 12.7 SEC (12.0-14.7)
[2018-04-25 11:40] LABS: Anion Gap 11 mmol/L (10-20); BUN (Urea Nitrogen) 16 mg/dL (9.8-20.1); Calc. Creatinine Clearance 0 mL/min (70-130); Calcium 9.5 mg/dL (7.8-10.44); Carbon Dioxide 25 mmol/L (22-29); Chloride 106 mmol/L (98-107); Estimated GFR-MDRD 87; Glucose 89 mg/dL (70-105); Potassium 4.2 mmol/L (3.5-5.1); Sodium 138 mmol/L (136-145)
--- NOTE | 2018-04-25 16:58 | EKG ---
Test Reason : Blood Pressure : / mmHG Vent. Rate : 073 BPM Atrial Rate : 073 BPM P-R Int : 180 ms QRS Dur : 074 ms QT Int : 398 ms P-R-T Axes : 066 050 038 degrees QTc Int : 438 ms Normal sinus rhythm Normal ECG When compared with ECG of 16-DEC-2017 23:18, (Unconfirmed) No significant change was found Confirmed by DR. Kristy LOUIS ([id number]) on 04/25/2018 4:58:13 PM Referred By: ANNIKA Confirmed By:DR. Kristy LOUIS
== END 2018-04-25 02:47 | disposition home or self-care (01) ==
LOC: LABBT 02:46
PROVIDERS: ATTEND Surgery
DX: Z01.818 Encounter for other preprocedural examination (principal); M54.16 Radiculopathy, lumbar region; M48.061 Spinal stenosis, lumbar region without neurogenic claudication
CPT/HCPCS: 80048; 85027; 85610; 85730; 93005; 93010

== ENCOUNTER 2018-05-02 08:01 | Day surgery (SDC) | payer OTHER ==
[2018-04-25 10:05] VITALS: BMI 28.5
[2018-05-02] MEDS ORDERED: CEFAZOLIN 2 GM/50 ML BAG ONE (09:21)
[2018-05-02] MEDS ORDERED: Bacitracin Zinc Ointment 30 gm TUBE ONE (10:32)
[2018-05-02] MEDS ORDERED: Thrombin 5000 UNITS/5 ML VIAL ONE (10:32)
[2018-05-02] MEDS ORDERED: Sodium Chloride 0.9% 10 ML ONE (10:32)
[2018-05-02] MEDS ORDERED: PROPOFOL 200 MG/20 ML VIAL ONE (10:54)
[2018-05-02] MEDS ORDERED: Glycopyrrolate 0.2 MG/ML 5 ML SYRINGE ONE (10:54)
[2018-05-02] MEDS ORDERED: ePHEDrine 50 MG/ML VIAL ONE (10:54)
[2018-05-02] MEDS ORDERED: Ondansetron PF 4 MG/2 ML Vial ONE (10:54)
[2018-05-02] MEDS ORDERED: Rocuronium Bromide 10 MG/ML (10ML VIAL) ONE (10:54)
[2018-05-02] MEDS ORDERED: Ketorolac Tromethamine 30 MG/ML VIAL ONE (10:54)
[2018-05-02] MEDS ORDERED: PHENYLEPHRINE-NS 100 MCG/ML 10 ML SYRINGE ONE (10:54)
[2018-05-02] MEDS ORDERED: Lidocaine 1% PF 5 ML VIAL ONE (10:54)
[2018-05-02] MEDS ORDERED: Fentanyl 100 MCG/2 ML VIAL ONE ×5 (11:28→14:27)
[2018-05-02] MEDS ORDERED: Promethazine HCl 25 MG/ML VIAL IM PRN ×2 (13:37→13:42)
[2018-05-02] MEDS ORDERED: Morphine Sulfate 2 MG/ML SYRINGE SLOW IVP PRN (13:37)
[2018-05-02] MEDS ORDERED: Meperidine HCl/PF 25 MG/ML VIAL SLOW IVP PRN (13:37)
[2018-05-02] MEDS ORDERED: Promethazine HCl 25 MG/ML VIAL SLOW IVP PRN (13:37)
[2018-05-02] MEDS ORDERED: HYDROmorphone 2 MG/ML VIAL SLOW IVP PRN (13:37)
[2018-05-02] MEDS ORDERED: PACU-Morphine 4MG/ML VIAL SLOW IVP PRN (13:37)
[2018-05-02] MEDS ORDERED: Ondansetron HCl/PF 4 MG/2 ML Vial IVP PRN (13:37)
[2018-05-02] MEDS ORDERED: Morphine 2 MG/ML SYRINGE SLOW IVP PRN (13:42)
[2018-05-02] MEDS ORDERED: Acetaminophen 325 MG TAB PO PRN (13:42)
[2018-05-02] MEDS ORDERED: Bisacodyl 10 MG SUPP PR PRN (13:42)
[2018-05-02] MEDS ORDERED: Fleet Enema 133 ML BOT PR PRN (13:42)
[2018-05-02] MEDS ORDERED: Milk Of Magnesia 30 ML UDCUP PO PRN (13:42)
[2018-05-02] MEDS ORDERED: Acetaminophen/Codeine 30-300mg Tablet PO PRN (13:42)
[2018-05-02] MEDS ORDERED: Mag-Al 1200 mg/1200 mg/30 ML UDCUP PO PRN (13:42)
[2018-05-02] MEDS ORDERED: CEFAZOLIN/Water 2 GM/20 ML SYRINGE SLOW IVP SCH (13:45)
[2018-05-02] MEDS ORDERED: Promethazine HCl 25 MG/ML VIAL ONE (14:29)
[2018-05-02] MEDS ORDERED: LINACLOTIDE 145 MCG PO PRN (14:30)
--- NOTE | 2018-05-02 14:38 | OP ---
DATE OF PROCEDURE: 05/02/2018 OPERATING ROOM: 12. WOUND CLASSIFICATION: Type 1 wound. ORANGE PICKER: Josse Cardoza PA-C. PREOPERATIVE DIAGNOSES: L4-L5 stenosis, low back and leg pain with left L4-L5 far lateral disk extrusion. PROCEDURES PERFORMED: 1. L4-L5 laminectomy, partial facetectomy, and foraminotomy. 2. Use of operative microscope for microdissection. 3. Left L4-L5 far lateral approach for decompression of the extraforaminal portion of the left L4 nerve root with diskectomy (left L4-L5 trans facet approach). DESCRIPTION OF PROCEDURE: After informed consent was obtained from the patient, the patient was brought to the OR. Proper patient pause and identification were carried out. She was placed in excellent general endotracheal anesthesia and positioned prone on the OR table. All appropriate points were padded. We identified the L4-L5 dorsal spines. A linear nick was made over this region. The region was sterilely cleansed, prepared, and draped. Proper patient pause and identification were carried out. The wound was then opened with combination of sharp, monopolar, and blunt dissection. The L4 and L5 dorsal spines and lamina were exposed. Localization confirmed our area of interest and performed an L4-L5 laminectomy, partial facetectomy, and foraminotomies. We had excellent decompression of the common dural tube in the L4-L5 segment. We then brought the microscope in and through the left L4-L5 trans facet approach, we then proceeded to expose the left L4-L5 trans facet disk compartment and left L4-L5 trans facet diskectomy was performed with excellent decompression of the exiting L4 nerve root. We then turned our attention to copious irrigation. The wound was maximally hemostased. The wound was then closed in anatomic layers following sprinkling of vancomycin powder. The patient then emerged from anesthesia. Job ID: [id number]
[2018-05-02] MEDS ORDERED: Lifitegrast [Xiidra] 1 DROP EA EYE SCH (15:00)
[2018-05-02] MEDS ORDERED: HYDROmorphone 2 MG/ML VIAL ONE (15:20)
[2018-05-02] MEDS: Sodium Chloride 0.9% 1,000 ML IV SCH (16:51)
[2018-05-02] MEDS ORDERED: Pancrelipase DR 12000 1 CAP PO PRN (17:00)
[2018-05-02] MEDS: HYDROcodone/Acetaminophen 7.5/325 mg Tablet PO PRN (18:41)
[2018-05-02] MEDS: Ondansetron PF 4 MG/2 ML Vial SLOW IVP PRN (19:56)
[2018-05-02] MEDS: CEFAZOLIN 2 GM/50 ML-DEXTROSE 2 GM in Premix Bag 1 BAG IVPB SCH (19:56)
[2018-05-02] MEDS ORDERED: ALPRAZOLAM 0.5 MG PO SCH (21:00)
[2018-05-02] MEDS ORDERED: Montelukast Sodium 10 mg Tablet PO SCH (21:00)
[2018-05-02] MEDS ORDERED: guanFACINE HCl 1 MG TAB PO SCH (21:00)
[2018-05-02] MEDS ORDERED: Escitalopram Oxalate 20 mg Tablet PO SCH (21:00)
[2018-05-02] MEDS ORDERED: lamoTRIgine 25 MG TAB PO SCH (21:00)
[2018-05-02] MEDS ORDERED: ALPRAZolam 1 MG TAB PO SCH (21:00)
[2018-05-02] MEDS ORDERED: Aripiprazole 10 MG TAB PO SCH (21:00)
[2018-05-02] MEDS: traMADol HCl 50 MG TAB PO PRN (21:36)
[2018-05-02] MEDS: Pancrelipase DR 12000 1 CAP PO SCH (21:41)
[2018-05-03] MEDS: HYDROcodone/Acetaminophen 7.5/325 mg Tablet PO PRN ×3 (00:04→13:16)
[2018-05-03] MEDS: Morphine 4 MG/ML VIAL SLOW IVP PRN ×3 (01:50→07:13)
[2018-05-03] MEDS: Ondansetron PF 4 MG/2 ML Vial SLOW IVP PRN ×2 (02:02→07:31)
[2018-05-03] MEDS: traMADol HCl 50 MG TAB PO PRN ×2 (03:39→14:39)
[2018-05-03] MEDS: CEFAZOLIN 2 GM/50 ML-DEXTROSE 2 GM in Premix Bag 1 BAG IVPB SCH (03:40)
[2018-05-03] MEDS: Sodium Chloride 0.9% 1,000 ML IV SCH ×2 (04:23→07:15)
[2018-05-03] MEDS: Pancrelipase DR 12000 1 CAP PO SCH ×2 (08:37→14:21)
[2018-05-03] MEDS ORDERED: Estradiol 1 MG TAB PO SCH (09:00)
[2018-05-03] MEDS ORDERED: DEXLANSOPRAZOLE 60 MG PO SCH (09:00)
--- NOTE | 2018-05-03 09:19 | PRG ---
DATE OF SERVICE: 05/03/2018 Ms. Hendricks is postoperative day #1 from lumbar decompression and left L4 far lateral diskectomy. She is doing well with resolution in her leg pain. She is mobilizing with good strength. We will plan dismissal. Job ID: [id number]
[2018-05-03 11:48] VITALS: BP 128/76; TEMP 98.1
== END 2018-05-03 15:34 | disposition home or self-care (01) ==
LOC: SDC 08:01 → SURG A 16:07 → SDC 05-03 15:34
PROVIDERS: ATTEND Surgery
PROC: 01NB0ZZ Release Lumbar Nerve, Open Approach (ICD-10-PCS; principal; 2018-05-03)
DX: M48.061 Spinal stenosis, lumbar region without neurogenic claudication (principal); M51.26 Other intervertebral disc displacement, lumbar region; M06.9 Rheumatoid arthritis, unspecified; M43.16 Spondylolisthesis, lumbar region; Z88.1 Allergy status to other antibiotic agents; Z88.2 Allergy status to sulfonamides; Z88.8 Allergy status to other drugs, medicaments and biological substances; Z79.818 Long term (current) use of other agents affecting estrogen receptors and estrogen levels; Z79.1 Long term (current) use of non-steroidal anti-inflammatories (NSAID); Z79.891 Long term (current) use of opiate analgesic; Z79.899 Other long term (current) drug therapy
CPT/HCPCS: 76000; J1170; J2270; J2405; J2550; J3010; J3370; J3490

== ENCOUNTER 2018-07-12 07:51 | Outpatient (CLI) | payer MEDICARE, OTHER ==
--- NOTE | 2018-07-12 10:06 | CT ---
CT ABDOMEN AND PELVIS WITH ORAL AND IV CONTRAST: HISTORY: Abdominal pain, pancreatitis, constipation. COMPARISON: 12/17/2017. FINDINGS: There are minimal dependent changes in the lung bases. A 6 mm low-density lesion in the liver is sta ble. No new liver lesions are seen. A tiny calcified granuloma is noted in the spleen. There are p ostop changes in the region of the GE junction. Postop changes of cholecystectomy are again seen. Atrophic changes in the pancreas are again noted. No pancreatic mass is identified. The adrenal gla nds and kidneys are normal. No free air, free fluid, or lymphadenopathy is seen in the abdomen or pelvis. The small bowel loops are not abnormally dilated. A normal-appearing appendix is present. There is fecal material in the colon and rectum. There are degenerative changes in the spine. There are postop changes of hysterec haseeb. There are vascular calcifications without evidence of aneurysmal dilatation of the abdominal a nisha. IMPRESSION: Stable exam since 12/17/2017. No acute process. POS: OFF
[2018-07-12] MEDS ORDERED: Iopamidol 370 76% 100 ML VIAL ONE (10:59)
== END 2018-07-12 07:52 | disposition home or self-care (01) ==
LOC: BICCT 07:51
PROVIDERS: ATTEND Internal Medicine Gastroenterology
DX: K86.1 Other chronic pancreatitis (principal); K21.9 Gastro-esophageal reflux disease without esophagitis; K59.00 Constipation, unspecified; R11.0 Nausea; R63.5 Abnormal weight gain; R13.19 Other dysphagia
CPT/HCPCS: 74177; 82565; Q9967

== ENCOUNTER 2018-10-11 17:00 | Emergency (ER) | payer OTHER, MEDICARE ==
[2018-10-11 17:32] LABS: #Eosinphils 0.1 thou/uL (0.0-0.7); #Lymphocytes 2.6 thou/uL (1.20-3.40); #Monocytes 0.7 thou/uL (0.11-0.59); #Neutrophils 6.4 thou/uL (1.40-6.50); %Basophils 0.2 % (0.0-1.0); %Eosinophils 0.7 % (0.0-10.0); %Lymphocytes 26.6 % (21.0-51.0); %Monocytes 6.8 % (0.0-10.0); %Neutrophils 65.6 % (42.0-75.0); Mean Corpuscular HGB CONC 33.3 g/dL (32.0-36.0); Mean Corpuscular Hemoglobin 29.5 pg (27.0-31.0); Mean Corpuscular Volume 88.7 fL (78.0-98.0); Mean Platelet Volume 6.8 fL (7.4-10.4); Platelet Count 434 thou/uL (130-400); RBC Distribution Width 13.4 % (11.5-14.5); Red Blood Cell (RBC) Count 4.07 mill/uL (4.20-5.40); White Blood Cell (WBC) Count 9.7 thou/uL (4.8-10.8)
[2018-10-11 17:52] LABS: ALT (SGPT) 17 U/L (8-55); AST (SGOT) 15 U/L (5-34); Albumin 4.3 g/dL (3.4-4.8); Alkaline Phosphatase 106 U/L (40-150); Anion Gap 13 mmol/L (10-20); BUN (Urea Nitrogen) 13 mg/dL (9.8-20.1); Bilirubin, Total 0.2 mg/dL (0.2-1.2); Calc. Creatinine Clearance 0 mL/min (70-130); Carbon Dioxide 25 mmol/L (23-31); Chloride 108 mmol/L (98-107); Estimated GFR-MDRD 76; Globulin 2.8 g/dL (2.4-3.5); Glucose 120 mg/dL (80-115); Potassium 4.2 mmol/L (3.5-5.1); Protein, Total 7.1 g/dL (6.0-8.3); Sodium 142 mmol/L (136-145)
--- NOTE | 2018-10-11 17:57 | RAD ---
PORTABLE CHEST: 10/11/18 HISTORY: Pain. Dizziness. Lung machuca are clear. Heart and mediastinum unremarkable. Vasculature normal. IMPRESSION: No acute findings. POS: OFF
[2018-10-11] MEDS ORDERED: Metoprolol Tartrate 5 MG/5 ML VIAL ONE (19:06)
== END 2018-10-11 19:30 | disposition home or self-care (01) ==
LOC: ERS 17:00
DX: R00.2 Palpitations (principal); R06.00 Dyspnea, unspecified; K21.9 Gastro-esophageal reflux disease without esophagitis; M06.9 Rheumatoid arthritis, unspecified; F41.9 Anxiety disorder, unspecified; F32.9 Major depressive disorder, single episode, unspecified; Z79.891 Long term (current) use of opiate analgesic; Z79.899 Other long term (current) drug therapy; Z79.01 Long term (current) use of anticoagulants
CPT/HCPCS: 36415; 71045; 80053; 84443; 84484; 85025; 85379; 93005; 96361; 96374

== ENCOUNTER 2018-11-30 09:42 | Outpatient (CLI) | payer OTHER, MEDICARE ==
--- NOTE | 2018-11-30 10:08 | RAD ---
EXAM: XR Cervical Spine 4 View Min PROVIDED CLINICAL HISTORY: Cervical radiculopathy. COMPARISON: 02/24/2018 FINDINGS: C1 to the cervicothoracic junction is seen on the lateral view. The vertebral body heights and interv ertebral disc spaces are within normal limits. No fracture or subluxation is seen involving the cervical spine. The prevertebral soft tissues are within normal limits. Vascular calcifications overl ie the neck soft tissues bilaterally, also seen on prior study. IMPRESSION: No acute findings involving the cervical spine. Views of the cervical spine are stable compared to [facility] on 02/24/2018.
--- NOTE | 2018-11-30 11:50 | MRI ---
CERVICAL SPINE MRI WITHOUT CONTRAST: DATE: 11/30/2018. COMPARISON: 02/24/2018. HISTORY: Cervical radiculopathy, progressive chronic neck pain. TECHNIQUE: Multiplanar, multisequence MR imaging cervical spine without contrast. FINDINGS: The sagittal STIR imaging demonstrates no focal area of osseous marrow edema. Benign hemangioma note d at the C7 level. There is no anterolisthesis or retrolisthesis noted within the cervical spine. T here is no prevertebral soft tissue swelling. C2-3: Stable mild facet hypertrophy and uncovertebral osteophyte formation on the right with stable mild right neural foraminal stenosis. No significant central canal or left neural foraminal stenosis . C3-4: No significant central canal or neural foraminal stenosis. C4-5: No significant central canal or neural foraminal stenosis. C5-6: There is a small central disk protrusion with an associated annular tear, similar when compare d to the prior exam. This partially effaces the ventral thecal sac but causes no significant central canal stenosis. There is mild bilateral facet and uncovertebral osteophyte formation with no signif icant neural foraminal stenosis on either side. C6-7: No significant central canal or neural foraminal stenosis. C7-T1: No significant central canal or neural foraminal stenosis. No focal area of abnormal signal intensity is identified within the cervical cord. IMPRESSION: Mild grossly unchanged cervical spine degenerative change as described above. POS: [facility]
== END 2018-11-30 09:43 | disposition home or self-care (01) ==
LOC: BICMRI 09:42
PROVIDERS: ATTEND Surgery
DX: M47.22 Other spondylosis with radiculopathy, cervical region (principal)
CPT/HCPCS: 72050; 72141

== ENCOUNTER 2019-01-08 10:30 | Outpatient (CLI) | payer OTHER, MEDICARE ==
--- NOTE | 2019-01-08 11:32 | MMO ---
Bilateral MAMMO Bilat Screen DDI+TIN. CLINICAL HISTORY: Patient is 63 years old and is seen for screening. The patient has no family history of breast cancer. The patient has a history of melanoma at age 44. VIEWS: The views performed were: bilateral craniocaudal with tomosynthesis and bilateral mediolateral oblique with tomosynthesis. FILMS COMPARED: The present examination has been compared to prior imaging studies performed at [facility] on 10/23/2014, 11/27/2015, 12/01/2016 and 01/04/2018. This study has been interpreted with the assistance of computer-aided detection. MAMMOGRAM FINDINGS: The breasts are heterogeneously dense, which could obscure a lesion on mammography. There are stable benign appearing calcifications seen in both breasts. There are also vascular calcifications. There are no suspicious masses, suspicious calcifications, or new areas of architectural distortion. IMPRESSION: THERE IS NO MAMMOGRAPHIC EVIDENCE OF MALIGNANCY. A ROUTINE FOLLOW-UP MAMMOGRAM IN 1 YEAR IS RECOMMENDED. THE RESULTS OF THIS EXAM WERE SENT TO THE PATIENT. ACR BI-RADS Category 2 - Benign finding MAMMOGRAPHY NOTE: 1. A negative mammogram report should not delay a biopsy if a dominant of clinically suspicious mass is present. 2. Approximately 10% to 15% of breast cancers are not detected by mammography. 3. Adenosis and dense breasts may obscure an underlying neoplasm. Reported by: ASHLY RESTREPO MD Electonically Signed: [id number]
== END 2019-01-08 10:31 | disposition home or self-care (01) ==
LOC: BICMAMMO 10:30
PROVIDERS: ATTEND Internal Medicine
DX: Z12.31 Encounter for screening mammogram for malignant neoplasm of breast (principal); Z85.820 Personal history of malignant melanoma of skin
CPT/HCPCS: 77063; 77067

== ENCOUNTER 2019-01-25 08:21 | Outpatient (CLI) | payer OTHER, MEDICARE ==
--- NOTE | 2019-01-25 09:34 | MRI ---
MRI LUMBAR SPINE NONCONTRAST: DATE: 01/25/2019 HISTORY: 63-year-old female with chronic low back pain and right-sided lumbar radiculopathy. COMPARISON: 02/24/2018 FINDINGS: There are 5 lumbar-type vertebrae. Vertebral body heights are maintained. No major bone marrow signal abnormality. Conus medullaris terminates at L1. T12-L1:Normal L1-2:Normal L2-3:Minimal disc bulge. Otherwise normal. L3-4:Mild disc bulge. Mild bilateral facet DJD. Mild thickening of ligamentum flavum. No high-grade n eural foraminal stenosis. No significant central spinal canal stenosis. Interval increase in volume of posterior epidural fat pad, resulting in moderate thecal sac stenosis. L4-5:The previously demonstrated mild grade 1 anterolisthesis of L4 on L5 has worsened, and is now a moderate degree of grade 1 anterolisthesis. There is a new midline laminectomy defect. The previously demonstrated severe bilateral facet DJD bony hypertrophy is again noted. There is currentl y a new right approximately 11 x 8 x 4 mm synovial cyst which exacerbates the high-grade right lateral recess stenosis. Diffusely T1 hypointense and T2 hypointense material in the posterior epidur al space contiguous with same signal abnormality material at midline in retrospect spinal posterior perivertebral space reaches dorsal lumbar fascia level. Dorsal to that, there is a small fluid collec tion measuring approximately 3 x 5 x 1.5 cm between the subcutaneous fat and the dorsal lumbar fascia. Mild to moderate right neural foraminal stenosis is similar to that of previous MRI. Moderat e-severe left neural foraminal stenosis is either the same or slightly worse now compared to previous. This is due to combination of left facet osteophytosis plus left paracentral, left lateral, and left far lateral mixed signal intensity mass. Without gadolinium based contrast agent IV injection, it is very difficult to distinguish recurrent or residual herniated disc material from pos tsurgical scar tissue. Together, fat mass plus the spondylolisthesis and facet hypertrophy compress and distort the exiting left L4 nerve root. There is high-grade lateral recess stenosis bilaterally. Despite the laminectomy, there continues to be somewhat severe central spinal canal stenosis, although CSF signal is not completely effaced. There is probably a left L4 pars interarticularis defe ct. There may or may not be a right L4 pars interarticularis defect. Interval worsening of disc space narrowing, now moderate. L5-S1:Moderate bilateral facet DJD. Disc space maintained. Mild lateral recess stenosis bilaterally. No central spinal canal stenosis or neural foraminal stenosis. IMPRESSION: 1) status post midline laminectomy at L4-5 since the prior MRI. 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 This can be confirmed with noncontrast CT. 3) associated with severe bilateral facet osteoarthrosis at L4-5, there is a new right-sided synovial cyst which contributes to high-grade right lateral recess stenosis and possible impingement on right-sided nerve roots. 4.) The degree of right neural foraminal stenosis remains only mild to moderate. 5) high-grade left neural foraminal stenosis with compression of the exiting left L4 nerve root at L4 -5, remains. 6) somewhat severe central spinal canal stenosis at L4-5.
--- NOTE | 2019-01-25 11:00 | RAD ---
LUMBAR SPINE SERIES FOUR VIEWS INCLUDING FLEXION AND EXTENSION: HISTORY: Low back pain. FINDINGS: The vertebral bodies are normal in height. There is moderate disk narrowing at the L4-L5 level with s pondylolisthesis of approximately 9 to 10 mm. I do not see that this definitely changes between these flexion and extension views. facet changes are noted. Postoperative changes are seen at L4-L 5. IMPRESSION: Postoperative changes at the L4-L5 level with approximately 10 mm of spondylolisthesis of L4 on L5 an d moderate disk space narrowing. POS: [facility]
== END 2019-01-25 08:22 | disposition home or self-care (01) ==
LOC: BICMRI 08:21
PROVIDERS: ATTEND Surgery
DX: M47.26 Other spondylosis with radiculopathy, lumbar region (principal); M43.16 Spondylolisthesis, lumbar region; M48.061 Spinal stenosis, lumbar region without neurogenic claudication; Z98.890 Other specified postprocedural states
CPT/HCPCS: 72120; 72148

== ENCOUNTER 2019-02-02 07:37 | Outpatient (CLI) | payer OTHER, MEDICARE ==
--- NOTE | 2019-02-02 10:15 | ULT ---
ABDOMINAL ULTRASOUND: Date: 02/02/19 HISTORY: Abdominal pain. FINDINGS: Real-time imaging of the upper abdomen was performed. This shows gallbladder has been removed. The co mmon duct is 4-5 mm. The liver is 16.8 cm in length and shows no focal findings. The spleen is 8.5 cm . Right and left kidneys are normal in size and not obstructed. The pancreas is partially obscured, as are portions of the abdominal aorta and IVC. IMPRESSION: Post cholecystectomy change. POS: [facility]
--- NOTE | 2019-02-02 10:16 | ULT ---
PELVIC ULTRASOUND: Date: 02/02/19 HISTORY: Pelvic pain. FINDINGS: Real-time imaging of the pelvis was obtained transabdominally and with an endovaginal probe. Patient is status post complete hysterectomy. No pelvic masses are seen. No fluid collections. IMPRESSION: Patient is status post complete hysterectomy. No pelvic masses or fluid collections identified. POS: [facility]
== END 2019-02-02 07:38 | disposition home or self-care (01) ==
LOC: BICULT 07:37
PROVIDERS: ATTEND Physician Assistant
DX: R10.30 Lower abdominal pain, unspecified (principal); Z90.710 Acquired absence of both cervix and uterus; Z90.49 Acquired absence of other specified parts of digestive tract
CPT/HCPCS: 76856; 93975

== ENCOUNTER 2019-03-16 11:09 | Outpatient (CLI) | payer OTHER, MEDICARE ==
--- NOTE | 2019-03-16 11:57 | CT ---
CT LUMBAR SPINE WITHOUT CONTRAST: HISTORY: Low back pain. Sciatica. Radiculopathy. Synovial cyst. COMPARISON: None. CORRELATION: MRI lumbar spine 01/25/2019. FINDINGS: Appropriate attenuation of the visualized paraspinal muscles. There are nonobstructing 2 mm calculi i n the right intrarenal collecting system. Heterogeneous attenuation involving the head and body of the pancreas, incompletely evaluated. Correl ate clinically. Minimal diverticulosis in the visualized colon. Five lumbar-type vertebrae. Lumbar spine vertebral body height is maintained. No fracture. Spondylolisthesis: L4-L5: 7 mm of anterolisthesis. Left pars defect at L4 is identified. Limited evaluation of the contents of the central spinal canal and neural foramina due to technique. T12-L1: No significant central canal stenosis or significant neural foraminal narrowing. L1-L2: No significant central canal stenosis or significant neural foraminal narrowing. L2-L3: No significant central canal stenosis or significant neural foraminal narrowing. L3-L4: Broad-based disc bulge and posterior epidural fat result in at least mild central canal stenos is. Bilaterally the neural foramina are patent. L4-L5: Posterior laminectomy defect. Abnormal soft tissue attenuation at the operative site is presum ed to represent scar tissue. There is a broad-based disc bulge with a left subarticular component. There is at least moderate central canal stenosis. Mild to moderate bilateral neural foraminal narrow ing. L5-S1: No significant central canal stenosis or significant neural foraminal narrowing. IMPRESSION: 1. Laminectomy defect at L4-L5 with presumed postoperative scar tissue at the surgical site. There do es appear to be at least moderate central canal stenosis at L4-L5. There is narrowing of the left subarticular zone. Refer to recent MRI for further detail with regards to the changes at the L4-L5 le blessing. 2. Grade 1 anterolisthesis of L4 upon L5. Left L4 pars defect. 3. Abnormal attenuation in the region of the pancreas. Correlate clinically for pancreatitis. Findings were conveyed to Dr. Quinteros via [employer] 03/16/2019 at 12:00 PM. CODE T Transcribed Date/Time: 03/16/2019 12:32 PM
== END 2019-03-16 11:10 | disposition home or self-care (01) ==
LOC: BICCT 11:09
PROVIDERS: ATTEND Surgery
DX: M51.16 Intervertebral disc disorders with radiculopathy, lumbar region (principal); M54.5 Low back pain; M43.16 Spondylolisthesis, lumbar region; M71.30 Other bursal cyst, unspecified site; M48.061 Spinal stenosis, lumbar region without neurogenic claudication; Z98.890 Other specified postprocedural states
CPT/HCPCS: 72131

== ENCOUNTER 2019-04-12 13:15 | Emergency (ER) | payer OTHER, MEDICARE ==
[2019-04-12 15:04] LABS: #Basophils 0.1 thou/uL (0.0-0.2); #Eosinphils 0.1 thou/uL (0.0-0.7); #Lymphocytes 2.8 thou/uL (1.20-3.40); #Monocytes 0.9 thou/uL (0.11-0.59); %Basophils 1.3 % (0.0-1.0); %Eosinophils 0.9 % (0.0-10.0); %Monocytes 9.6 % (0.0-10.0); %Neutrophils 56.2 % (42.0-75.0); Hemoglobin 12.9 g/dL (12.0-16.0); Mean Corpuscular HGB CONC 32.5 g/dL (32.0-36.0); Mean Corpuscular Hemoglobin 29.7 pg (27.0-31.0); Mean Corpuscular Volume 91.3 fL (78.0-98.0); Platelet Count 319 thou/uL (130-400); RBC Distribution Width 18.5 % (11.5-14.5); Red Blood Cell (RBC) Count 4.34 mill/uL (4.20-5.40); White Blood Cell (WBC) Count 8.9 thou/uL (4.8-10.8)
[2019-04-12 15:24] LABS: ALT (SGPT) 23 U/L (8-55); AST (SGOT) 16 U/L (5-34); Albumin 3.9 g/dL (3.4-4.8); Alkaline Phosphatase 69 U/L (40-110); Anion Gap 14 mmol/L (10-20); BUN (Urea Nitrogen) 16 mg/dL (9.8-20.1); Bilirubin, Total 0.2 mg/dL (0.2-1.2); Calc. Creatinine Clearance 0 mL/min (70-130); Calcium 8.9 mg/dL (7.8-10.44); Carbon Dioxide 26 mmol/L (23-31); Chloride 103 mmol/L (98-107); Estimated GFR-MDRD 84; Globulin 2.5 g/dL (2.4-3.5); Glucose 84 mg/dL (80-115); Potassium 3.7 mmol/L (3.5-5.1); Protein, Total 6.4 g/dL (6.0-8.3); Sodium 139 mmol/L (136-145)
--- NOTE | 2019-04-12 15:54 | CT ---
CT HEAD WITHOUT CONTRAST: INDICATION: Headache. COMPARISON: Comparison is made to head CT of 12/14/2016. FINDINGS: Ventricles have normal size and position. Subtle area of low attenuation with calcification in the r egion of the right basal ganglia is a stable finding. Minimal ischemic white matter change is again noted. There is no evidence of mass, hemorrhage, or edema. No evidence of acute process. IMPRESSION: No acute finding. POS: [facility]
[2019-04-12] MEDS ORDERED: diphenhydrAMINE 50 MG/ML VIAL ONE (16:24)
[2019-04-12] MEDS ORDERED: Metoclopramide HCl 10 MG/2 ML VIAL ONE (16:24)
[2019-04-12] MEDS ORDERED: Dexamethasone 10 MG/ML VIAL ONE (16:25)
[2019-04-12] MEDS ORDERED: Ketorolac Tromethamine 30 MG/ML VIAL ONE (17:20)
[2019-04-12] MEDS ORDERED: Magnesium 2 GM/50 ML BAG (IN WATER) ONE (17:20)
== END 2019-04-12 18:32 | disposition home or self-care (01) ==
LOC: ERS 13:15
DX: G43.909 Migraine, unspecified, not intractable, without status migrainosus (principal); K21.9 Gastro-esophageal reflux disease without esophagitis; M06.9 Rheumatoid arthritis, unspecified; Z79.899 Other long term (current) drug therapy; Z79.01 Long term (current) use of anticoagulants
CPT/HCPCS: 36415; 70450; 80053; 85025; 85652; 86140; 96365; 96367; 96375; J1100; J1200; J1885; J2765; J3475

== ENCOUNTER 2019-09-07 10:15 | Outpatient (CLI) | payer MEDICARE ==
--- NOTE | 2019-09-07 10:36 | RAD ---
Exam: XR Foot Rt 3 View STANDARD HISTORY: Pain and swelling fifth metatarsal and lateral malleolus. COMPARISON: 09/14/2015 FINDINGS: There is mild subcutaneous soft tissue swelling seen at the dorsal aspect of the midfoot. No acute fracture, dislocation, or other acute osseous abnormality is identified. No other interval c hange. IMPRESSION: 1. No acute osseous abnormality. 2. Subcutaneous soft tissue swelling dorsal aspect right foot.
--- NOTE | 2019-09-07 11:01 | RAD ---
RIGHT ANKLE 3 VIEWS: HISTORY: Pain and swelling 5th metatarsal and lateral malleolus. FINDINGS: Fairly prominent soft tissue fullness of the lower leg and upper ankle. No fracture, dislocation, or other significant acute osseous process. Small calcaneal Achilles enthesophyte. IMPRESSION: Soft tissue fullness lower leg and upper ankle. No fracture or dislocation. POS: RRE
== END 2019-09-07 10:16 | disposition home or self-care (01) ==
LOC: BICRAD 10:15
PROVIDERS: ATTEND Internal Medicine
DX: M25.571 Pain in right ankle and joints of right foot (principal); M79.671 Pain in right foot; M79.89 Other specified soft tissue disorders

== ENCOUNTER 2019-09-10 08:04 | Outpatient (CLI) | payer MEDICARE ==
--- NOTE | 2019-09-10 08:47 | ULT ---
LEFT BREAST ULTRASOUND: HISTORY: Left breast pain. COMPARISON: None. TECHNIQUE: Targeted sonographic imaging of the left breast was performed. The region of concern was evaluated wi th static images. Real-time imaging was also performed by the radiologist. FINDINGS: Static and real-time images demonstrate normal fibroglandular tissue. No solid or cystic masses. No s hadowing or architectural distortion. IMPRESSION: BI-RADS Category 2 benign finding. RECOMMENDATION: Annual mammogram. With regards to the region of pain, further evaluation including additional imaging and/or biopsy can be based upon clinical finding and/or suspicion. Transcribed Date/Time: 09/10/2019 12:31 PM
--- NOTE | 2019-09-10 08:55 | MMO ---
Left Breast MAMMO Unilat Diag DDI LT+TIN. CLINICAL HISTORY: Patient is 64 years old and is seen for diagnostic exam and pain in the lower-inner region of the left breast. The patient has no family history of breast cancer. The patient has a history of melanoma at age 44. VIEWS: The views performed were: left craniocaudal with tomosynthesis; left mediolateral oblique with tomosynthesis; and left mediolateral with tomosynthesis. FILMS COMPARED: The present examination has been compared to prior imaging studies performed at [facility] on 12/01/2016, 01/04/2018, 01/08/2019 and 09/10/2019. This study has been interpreted with the assistance of computer-aided detection. MAMMOGRAM FINDINGS: The breast is heterogeneously dense, which could obscure a lesion on mammography. There are no suspicious masses, calcifications or areas of architectural distortion. There are benign appearing calcifications in the left breast. There are no suspicious masses, suspicious calcifications, or new areas of architectural distortion. IMPRESSION: THERE IS NO MAMMOGRAPHIC EVIDENCE OF MALIGNANCY. A ROUTINE FOLLOW-UP MAMMOGRAM IN 1 YEAR IS RECOMMENDED. THE RESULTS OF THIS EXAM WERE SENT TO THE PATIENT. ACR BI-RADS Category 2 - Benign finding MAMMOGRAPHY NOTE: 1. A negative mammogram report should not delay a biopsy if a dominant of clinically suspicious mass is present. 2. Approximately 10% to 15% of breast cancers are not detected by mammography. 3. Adenosis and dense breasts may obscure an underlying neoplasm. Reported by: SHAN IRIZARRY MD Electonically Signed: [id number]
== END 2019-09-10 08:05 | disposition home or self-care (01) ==
LOC: BICMAMMO 08:04
PROVIDERS: ATTEND Internal Medicine
DX: N64.4 Mastodynia (principal)
CPT/HCPCS: 76642; 77065; G0279

== ENCOUNTER 2019-09-17 05:34 | Outpatient (CLI) | payer MEDICARE, OTHER ==
--- NOTE | 2019-09-19 17:57 | EKG ---
Test Reason : Blood Pressure : / mmHG Vent. Rate : 068 BPM Atrial Rate : 068 BPM P-R Int : 150 ms QRS Dur : 088 ms QT Int : 408 ms P-R-T Axes : 064 041 -01 degrees QTc Int : 433 ms Sinus rhythm Cannot rule out Anterior infarct , age undetermined Abnormal ECG When compared with ECG of 11-OCT-2018 17:09, Vent. rate has decreased BY [address] now depressed in Inferior leads ST no longer depressed in Lateral leads Confirmed by RADHA TOLEDO (2) on 09/19/2019 5:57:11 PM Referred By: ANNIKA Confirmed By:RADHA TOLEDO
== END 2019-09-17 05:35 | disposition home or self-care (01) ==
LOC: LABBT 05:34
PROVIDERS: ATTEND Surgery
DX: Z01.818 Encounter for other preprocedural examination (principal); Z11.59 Encounter for screening for other viral diseases; M71.38 Other bursal cyst, other site; M47.816 Spondylosis without myelopathy or radiculopathy, lumbar region; M43.16 Spondylolisthesis, lumbar region; M48.061 Spinal stenosis, lumbar region without neurogenic claudication
CPT/HCPCS: 93005; 93010

== ENCOUNTER 2019-09-17 08:30 | Inpatient (IN) | payer MEDICARE, OTHER ==
[2019-09-14 10:42] VITALS: BMI 34.3
[2019-09-17 10:59] LABS: Hemoglobin 11.9 g/dL (12.0-16.0); Mean Corpuscular HGB CONC 32.2 g/dL (32.0-36.0); Mean Corpuscular Hemoglobin 30.5 pg (27.0-31.0); Mean Corpuscular Volume 94.6 fL (78.0-98.0); Platelet Count 370 thou/uL (130-400); RBC Distribution Width 13.8 % (11.5-14.5); White Blood Cell (WBC) Count 8.4 thou/uL (4.8-10.8)
[2019-09-17 11:14] LABS: INR-International Normal Ratio 0.8; PTT 25.8 sec (22.9-36.1); Prothrombin Time 11.4 sec (12.0-14.7)
[2019-09-17 11:23] LABS: Anion Gap 14 mmol/L (10-20); BUN (Urea Nitrogen) 15 mg/dL (9.8-20.1); Calc. Creatinine Clearance 0 mL/min (70-130); Calcium 8.8 mg/dL (7.8-10.44); Carbon Dioxide 24 mmol/L (23-31); Chloride 104 mmol/L (98-107); Estimated GFR-MDRD 82; Glucose 96 mg/dL (80-115); Sodium 138 mmol/L (136-145)
[2019-09-18 12:17] LABS: SARS-CoV-2 MS2 Positive; SARS-CoV-2 N Gene Negative; SARS-CoV-2 S Gene Negative; SARS-CoV-2 orf1ab Negative
[2019-09-20] MEDS ORDERED: Thrombin 5000 UNITS/5 ML VIAL ONE ×2 (10:45→14:48)
[2019-09-20] MEDS ORDERED: Fentanyl 100 MCG/2 ML VIAL ONE ×4 (11:45→16:41)
[2019-09-20] MEDS ORDERED: Glycopyrrolate 0.2 MG/ML 5 ML SYRINGE ONE (11:56)
[2019-09-20] MEDS ORDERED: Dexamethasone 20 MG/5 ML VIAL ONE (11:56)
[2019-09-20] MEDS ORDERED: EPHEDRINE 25 MG/5 ML SYRINGE ONE (11:56)
[2019-09-20] MEDS ORDERED: PROPOFOL 200 MG/20 ML VIAL ONE (11:56)
[2019-09-20] MEDS ORDERED: Lidocaine 1% PF 5 ML VIAL ONE (11:56)
[2019-09-20] MEDS ORDERED: Rocuronium Bromide 10 MG/ML (10ML VIAL) ONE (11:56)
[2019-09-20] MEDS ORDERED: Ondansetron PF 4 MG/2 ML Vial ONE (11:56)
[2019-09-20] MEDS ORDERED: Rocuronium Bromide 50 MG/5 ML VIAL ONE (13:51)
[2019-09-20] MEDS ORDERED: SUGAMMADEX SODIUM 200 MG/2 ML VIAL ONE (15:14)
[2019-09-20] MEDS ORDERED: Mag-Al 1200 mg/1200 mg/30 ML UDCUP PO PRN (15:48)
[2019-09-20] MEDS ORDERED: Milk Of Magnesia 30 ML UDCUP PO PRN (15:48)
[2019-09-20] MEDS ORDERED: Acetaminophen/Codeine 30-300mg Tablet PO PRN (15:48)
[2019-09-20] MEDS ORDERED: diphenhydrAMINE 25 MG CAP PO PRN (15:48)
[2019-09-20] MEDS ORDERED: traMADol HCl 50 MG TAB PO PRN (15:48)
[2019-09-20] MEDS ORDERED: Acetaminophen 325 MG TAB PO PRN (15:48)
[2019-09-20] MEDS ORDERED: HYDROcodone/Acetaminophen 7.5/325 mg Tablet PO PRN (15:48)
[2019-09-20] MEDS ORDERED: Bisacodyl 10 MG SUPP PR PRN (15:48)
[2019-09-20] MEDS ORDERED: Fleet Enema 133 ML BOT PR PRN (15:48)
[2019-09-20] MEDS ORDERED: LINACLOTIDE 145 MCG PO PRN (16:15)
[2019-09-20] MEDS ORDERED: Pancrelipase DR 12000 1 CAP PO SCH (17:00)
[2019-09-20] MEDS: Cyclobenzaprine 10 MG TAB PO PRN (18:36)
[2019-09-20] MEDS: CEFAZOLIN 2 GM in Premix Bag 1 BAG IVPB SCH (18:37)
[2019-09-20] MEDS: Sodium Chloride 0.9% 1,000 ML IV SCH (18:44)
[2019-09-20] MEDS ORDERED: Hyoscyamine Sulfate SL 0.125 mg Tablet SL PRN (20:12)
[2019-09-20] MEDS ORDERED: Pancrelipase DR 12000 1 CAP PO PRN (20:14)
[2019-09-20] MEDS ORDERED: Lubiprostone 24 MCG CAP PO PRN (20:15)
[2019-09-20] MEDS ORDERED: Lifitegrast [Xiidra] 1 DROP EA EYE SCH (21:00)
[2019-09-20] MEDS ORDERED: lamoTRIgine 25 MG TAB PO SCH (21:00)
[2019-09-20] MEDS: guanFACINE HCl 1 MG TAB PO SCH (21:52)
[2019-09-20] MEDS: Aripiprazole 10 MG TAB PO SCH (21:53)
[2019-09-20] MEDS: Meloxicam 15 MG TAB PO SCH (21:54)
[2019-09-20] MEDS: clonazePAM 1 MG TAB PO SCH (21:54)
[2019-09-20] MEDS: Escitalopram Oxalate 20 mg Tablet PO SCH (21:54)
[2019-09-20] MEDS: lamoTRIgine 100 MG TAB PO SCH (21:55)
[2019-09-20] MEDS: Nebivolol HCl 5 MG TAB PO SCH (21:55)
[2019-09-20] MEDS: Montelukast Sodium 10 mg Tablet PO SCH (21:55)
[2019-09-20] MEDS ORDERED: Ondansetron ODT 4 MG TAB PO PRN (22:00)
[2019-09-20] MEDS: HYDROcodone/Acetaminophen 7.5/325 mg Tablet PO PRN (22:03)
[2019-09-21] MEDS: CEFAZOLIN 2 GM in Premix Bag 1 BAG IVPB SCH ×3 (01:51→17:42)
[2019-09-21 05:23] LABS: #Lymphocytes 1.6 thou/uL (1.20-3.40); #Monocytes 0.8 thou/uL (0.11-0.59); #Neutrophils 7.3 thou/uL (1.40-6.50); %Basophils 0.2 % (0.0-1.0); %Eosinophils 0.1 % (0.0-10.0); %Lymphocytes 16.7 % (21.0-51.0); %Monocytes 8.3 % (0.0-10.0); %Neutrophils 74.6 % (42.0-75.0); Hemoglobin 10.5 g/dL (12.0-16.0); Mean Corpuscular HGB CONC 32.6 g/dL (32.0-36.0); Mean Corpuscular Hemoglobin 30.4 pg (27.0-31.0); Mean Corpuscular Volume 93.2 fL (78.0-98.0); Mean Platelet Volume 6.7 fL (7.4-10.4); Platelet Count 329 thou/uL (130-400); RBC Distribution Width 13.8 % (11.5-14.5); Red Blood Cell (RBC) Count 3.44 mill/uL (4.20-5.40); White Blood Cell (WBC) Count 9.8 thou/uL (4.8-10.8)
[2019-09-21 05:44] LABS: Anion Gap 13 mmol/L (10-20); BUN (Urea Nitrogen) 9 mg/dL (9.8-20.1); Calc. Creatinine Clearance 110 mL/min (70-130); Calcium 7.8 mg/dL (7.8-10.44); Carbon Dioxide 27 mmol/L (23-31); Chloride 103 mmol/L (98-107); Estimated GFR-MDRD 77; Glucose 122 mg/dL (80-115); Potassium 3.9 mmol/L (3.5-5.1); Sodium 139 mmol/L (136-145)
[2019-09-21] MEDS: HYDROcodone/Acetaminophen 7.5/325 mg Tablet PO PRN ×2 (06:31→13:36)
[2019-09-21] MEDS: Sodium Chloride 0.9% 1,000 ML IV SCH (06:51)
[2019-09-21] MEDS ORDERED: Estradiol 1 MG TAB PO SCH (09:00)
[2019-09-21] MEDS ORDERED: Rosuvastatin 5 MG TAB PO SCH (09:00)
[2019-09-21] MEDS ORDERED: DEXILANT 60 MG PO SCH (09:00)
[2019-09-21] MEDS: Valsartan 80 MG TAB PO SCH (09:35)
[2019-09-21] MEDS: Estradiol 1 MG TAB PO SCH (09:35)
[2019-09-21] MEDS: Pancrelipase DR 12000 1 CAP PO SCH ×3 (09:36→18:07)
--- NOTE | 2019-09-21 11:54 | PRG ---
DATE OF SERVICE: 09/21/2019 Ms. Hendricks is postoperative day 1 from L4-L5 decompression and interbody and posterolateral fusion. She has had resolution in her leg pain in particular on the left side. She has had some groin pain bilaterally, but she states this has largely resolved overnight. I suspect this is just a radiculitis and symptoms related to realignment of her spondylolisthesis as we were able to achieve almost complete reduction with interbody placement, but still trace spondylolisthesis obvious. She has had muscular pain as well, not surprising. We will add a 4-day Decadron taper and some intermittent doses of Toradol to assist with inflammation. We will consult inpatient rehab as this would be best for given that she lives at home with her , and there is a big surgery recover from. Her postoperative labs are satisfactory. We will arrange for transfer to inpatient rehab frankly as early as today. She has an LSO, that should be worn when out of bed. We will remove her Chaney catheter. Her strength is full in the lower extremities. Job ID: [id number]
[2019-09-21] MEDS: Dexamethasone 4 MG TAB PO SCH ×3 (12:36→22:54)
--- NOTE | 2019-09-21 13:57 | OP ---
DATE OF PROCEDURE: 09/20/2019 SHIPPING LEAD: Cris Spears PA-C. PROCEDURE DIAGNOSES: L4-L5 spondylolysis with spondylolisthesis, recurrent disk extrusion, and synovial cyst (instability). POSTPROCEDURE DIAGNOSES: L4-L5 spondylolysis with spondylolisthesis, recurrent disk extrusion, and synovial cyst (instability). PROCEDURES PERFORMED: 1. Left L4-L5 complete facetectomy and laminectomy and diskectomy and placement of interbody spacer for interbody fusion, packed with BMP. 2. Posterior screw sharon fixation, L4-L5, bilaterally. 3. Removal of right synovial cyst and right L4-L5 medial facet complex. 4. Posterolateral fusion BMP, local bone autograft obtained from same incision and allograft, right L4-L5 segment. DESCRIPTION OF PROCEDURE: After informed consent was obtained from the patient, the patient was brought to the OR. Proper patient, pause, and identification were carried out. She was placed under excellent endotracheal anesthesia and positioned prone on the OR table. The prior L4-L5 wound was identified and a linear nick was drawn out in this region. This area was sterilely cleansed, prepared, and draped. Proper patient, pause, and identification were carried out. The wound was then opened with a combination of sharp, monopolar, and blunt dissection. L4-L5 scar tissue was identified. The facet complex at the left-sided L4-L5 was removed as was a synovial cyst on the right L4-L5 segment. We then performed the diskectomy and interbody arthrodesis initiation at L4-L5 and from the left side with satisfactory reduction in her spondylolisthesis. We then turned our attention to placement of initiation of screw sharon fixation. This was performed with gross anatomic and fluoroscopic visualization of the construct and anatomy. Copious irrigation occurred throughout as did maximizing hemostasis. We then placed DuraSeal over the common dural tube to protect it, although there was no spinal fluid leak. We then did posterolateral arthrodesis at L4-L5 with BMP, local bone autograft obtained from same incision and allograft. The wound was then closed following meticulous hemostasis in anatomic layers following sprinkle of vancomycin powder. The patient emerged from anesthesia. Job ID: [id number]
[2019-09-21] MEDS ORDERED: Famotidine 20 MG TAB PO SCH (21:00)
[2019-09-21] MEDS: Aripiprazole 10 MG TAB PO SCH (21:59)
[2019-09-21] MEDS: Nebivolol HCl 5 MG TAB PO SCH (22:03)
[2019-09-21] MEDS: lamoTRIgine 100 MG TAB PO SCH (22:04)
[2019-09-21] MEDS: guanFACINE HCl 1 MG TAB PO SCH (22:05)
[2019-09-21] MEDS: Meloxicam 15 MG TAB PO SCH (22:06)
[2019-09-21] MEDS: Montelukast Sodium 10 mg Tablet PO SCH (22:06)
[2019-09-21] MEDS: clonazePAM 1 MG TAB PO SCH (22:07)
[2019-09-21] MEDS: Escitalopram Oxalate 20 mg Tablet PO SCH (22:07)
[2019-09-21] MEDS ORDERED: Famotidine/PF 20 mg/2ml Vial SLOW IVP SCH (23:00)
[2019-09-22] MEDS: CEFAZOLIN 2 GM in Premix Bag 1 BAG IVPB SCH ×2 (01:05→09:19)
[2019-09-22] MEDS: Cyclobenzaprine 10 MG TAB PO PRN ×3 (01:06→21:14)
[2019-09-22] MEDS: HYDROcodone/Acetaminophen 7.5/325 mg Tablet PO PRN ×3 (01:06→17:53)
[2019-09-22] MEDS: Dexamethasone 4 MG TAB PO SCH (06:21)
[2019-09-22] MEDS: Sodium Chloride 0.9% 1,000 ML IV SCH ×2 (06:23→09:12)
[2019-09-22] MEDS: Valsartan 80 MG TAB PO SCH (09:09)
[2019-09-22] MEDS: Famotidine/PF 20 mg/2ml Vial SLOW IVP SCH ×2 (09:09→20:49)
[2019-09-22] MEDS: Estradiol 1 MG TAB PO SCH (09:09)
[2019-09-22] MEDS: Pancrelipase DR 12000 1 CAP PO SCH ×3 (09:15→17:50)
--- NOTE | 2019-09-22 11:14 | PRG ---
DATE OF SERVICE: 09/22/2019 I saw Ms. Hendricks in her hospital room this morning. She is 2 days out from decompression and fusion of lumbar spine for spondylolisthesis and stenosis. She is doing relatively well, but is planning on going to [facility] post discharge. Once arrangements are made for that to happen, she can leave the hospital. Job ID: [id number]
[2019-09-22] MEDS: Dexamethasone 1 MG TAB PO SCH ×2 (12:46→17:51)
[2019-09-22] MEDS: Ketorolac Tromethamine 30 MG/ML VIAL IVP PRN ×2 (12:49→21:13)
[2019-09-22] MEDS: Meloxicam 15 MG TAB PO SCH (20:52)
[2019-09-22] MEDS: clonazePAM 1 MG TAB PO SCH (20:52)
[2019-09-22] MEDS: Montelukast Sodium 10 mg Tablet PO SCH (20:53)
[2019-09-22] MEDS: Escitalopram Oxalate 20 mg Tablet PO SCH (20:53)
[2019-09-22] MEDS: lamoTRIgine 100 MG TAB PO SCH (20:53)
[2019-09-22] MEDS: Nebivolol HCl 5 MG TAB PO SCH (20:54)
[2019-09-22] MEDS: Aripiprazole 10 MG TAB PO SCH (21:01)
[2019-09-22] MEDS: guanFACINE HCl 1 MG TAB PO SCH (21:01)
[2019-09-23] MEDS: Dexamethasone 1 MG TAB PO SCH ×3 (00:13→12:01)
[2019-09-23] MEDS: Sodium Chloride 0.9% 1,000 ML IV SCH ×2 (02:38→10:40)
[2019-09-23] MEDS: HYDROcodone/Acetaminophen 7.5/325 mg Tablet PO PRN ×2 (03:15→09:04)
[2019-09-23] MEDS: Pancrelipase DR 12000 1 CAP PO SCH ×2 (08:21→12:02)
--- NOTE | 2019-09-23 08:24 | PRG ---
DATE OF SERVICE: 09/23/2019 : I saw Ms. Hendricks this morning. She told me that she got out of bed herself, used a walker, and went around the entire floor on her own without assistance already this morning. She is getting in and out of bed well. She has not yet dress herself. She can eat well. She can go to bathroom. Ms. Hendricks was waiting for inpatient rehabilitation placement, but I think this qualifies her for discharge home. We will make sure prescriptions are ready for her. She voiced [facility] in [place] as her pharmacy. Followup will be with Dr. Quinteros in 2 weeks. Job ID: [id number] [facility]
[2019-09-23] MEDS: Famotidine/PF 20 mg/2ml Vial SLOW IVP SCH (09:04)
[2019-09-23] MEDS: Estradiol 1 MG TAB PO SCH (09:04)
[2019-09-23] MEDS: Valsartan 80 MG TAB PO SCH (09:04)
[2019-09-23 11:33] VITALS: BP 159/88; TEMP 97.9
[2019-09-23] MEDS ORDERED: Dexamethasone 1 MG TAB PO SCH (18:00)
--- NOTE | 2019-09-24 12:17 | DIS ---
DATE OF ADMISSION: 09/20/2019 DATE OF DISCHARGE: 09/23/2019 HOSPITAL COURSE: Ms. Hendricks is a 64-year-old female, postoperative day 2 from L4-L5 decompression and interbody and posterolateral fusion. Following the surgery, she was transitioned to the med/surg floor, where her pain was well controlled with p.o. medications. She is tolerating a regular diet and voiding appropriately. She is otherwise doing well and ambulating easily in the hallways and feels that she is ready to go home today. On exam today, she is awake, alert, and in no acute distress. She has free active range of motion of all her extremities. No focal motor weakness. No reflex asymmetry. Her incision is clean, dry, and intact. We will be planning on discharging Ms. Hendricks home today. I have discussed home care precautions with her. CONDITION ON DISCHARGE: The patient had no emergencies. Condition was stable for discharge. MEDICATIONS: Home going medications were reviewed. FOLLOWUP: Followup arrangements were made by our medical staff credentialing coordinator in the clinic and called to the patient. ACTIVITIES: Restrictions were reviewed in person. Wound care showers are acceptable. The patient should pat the incision dry, but not submerge it under surface of body water for 2 months. Job ID: [id number]
[2019-09-24] MEDS ORDERED: Dexamethasone 1 MG TAB PO SCH (18:00)
== END 2019-09-23 12:15 | disposition home or self-care (01) | DRG 455 ==
LOC: SURG A 09-20 09:41
PROVIDERS: ADMIT Surgery; ATTEND Surgery
PROC: 0SG0071 Fusion of Lumbar Vertebral Joint with Autologous Tissue Substitute, Posterior Approach, Posterior Column, Open Approach (ICD-10-PCS; principal; 2019-09-20)
PROC: 0RB90ZZ Excision of Thoracic Vertebral Disc, Open Approach (ICD-10-PCS; 2019-09-20)
PROC: 01NB0ZZ Release Lumbar Nerve, Open Approach (ICD-10-PCS; 2019-09-20)
PROC: 0SG00AJ Fusion of Lumbar Vertebral Joint with Interbody Fusion Device, Posterior Approach, Anterior Column, Open Approach (ICD-10-PCS; 2019-09-20)
DX: M43.16 Spondylolisthesis, lumbar region (principal); Z11.59 Encounter for screening for other viral diseases; M71.38 Other bursal cyst, other site; M51.26 Other intervertebral disc displacement, lumbar region; M47.816 Spondylosis without myelopathy or radiculopathy, lumbar region; I10 Essential (primary) hypertension; J30.2 Other seasonal allergic rhinitis; M06.9 Rheumatoid arthritis, unspecified; M19.90 Unspecified osteoarthritis, unspecified site; F32.9 Major depressive disorder, single episode, unspecified; F41.9 Anxiety disorder, unspecified; Z88.1 Allergy status to other antibiotic agents; Z88.2 Allergy status to sulfonamides; Z88.8 Allergy status to other drugs, medicaments and biological substances; Z87.891 Personal history of nicotine dependence; Z90.710 Acquired absence of both cervix and uterus; Z79.899 Other long term (current) drug therapy; M48.061 Spinal stenosis, lumbar region without neurogenic claudication
CPT/HCPCS: 36415; 76000; 80048; 85025; 85027; 85610; 85730; 86850; 86900; 86901; 87635; 93005; C1713; J0690; J1100; J1885; J2001; J2270; J2405; J2704; J3010; J3370; J3490; J8540; S0028; U0003

== ENCOUNTER 2019-11-09 13:54 | Outpatient (CLI) | payer MEDICARE ==
[2019-11-09] MEDS ORDERED: Iopamidol-370 76% 500 ML 1 ML ONE (14:27)
--- NOTE | 2019-11-09 15:03 | CT ---
ABDOMEN CT WITH CONTRAST PELVIC CT WITH CONTRAST: 11/09/19 HISTORY: Weight gain, reflux, low back pain. Pancreatitis, chronic as well as constipation. COMPARISON: 07/12/18. FINDINGS: ABDOMEN CT: Scarring and atelectasis in the lung bases. Normal heart size. No significant pericardial fluid. The thoracic aorta and abdominal aorta have a no rmal caliber. Minimal atherosclerosis. No periaortic fat stranding. Surgically absent gallbladder. Patent portal vein. Redemonstration of hypoattenuation throughout the liver suggesting hepatic steatosis. 6 mm hypodensit y noted in the right hepatic lobe on the previous examination is not currently appreciated. No enhanc ing hepatic masses. The spleen and adrenal glands have appropriate attenuation and enhancement. Atrophy and hypoattenuati on of the pancreas, compatible with volume loss due to remove bouts of pancreatitis. The pancreas has a stable attenuation. No gastric hepatic, retrocrural or periportal lymphadenopathy. No mesenteric m ass, lymphadenopathy, free air or free fluid. Anterior abdominal wall hernia containing mesenteric fat is once again demonstrated. Hernia defect is stable. Symmetric enhancement of the kidneys. Bilaterally, no obstructive uropathy. Nonobstructing 1 mm calcu kamran in the lower pole of the right kidney. Gastric mucosa, duodenum, and small bowel loops have a normal caliber. Normal ileocecal junction. Sca ttered fecal material in a nondistended, nondilated colon. Appendix is not appreciated. No secondary signs of appendicitis. Occasional diverticulum. No diverticulitis. Note is made of a previous Destini fundoplication. CT PELVIS: No mass, lymphadenopathy, free air or free fluid. Presacral fat is preserved. No abnormality with reg ards to the urinary bladder. OSSEOUS STRUCTURES: There are no lytic or blastic lesions in the osseous structures. Postsurgical change in the lumbar sp ine is identified. Bilateral transpedicular screws at L4-5. Grade I anterolisthesis of L4 upon L5. IMPRESSION: No acute abnormality in the abdomen or pelvis. Additional findings as detailed above. POS: PPP
== END 2019-11-09 13:55 | disposition home or self-care (01) ==
LOC: BICCT 13:54
PROVIDERS: ATTEND Internal Medicine Gastroenterology
DX: K86.1 Other chronic pancreatitis (principal); K21.9 Gastro-esophageal reflux disease without esophagitis; K59.00 Constipation, unspecified; R63.5 Abnormal weight gain; M54.5 Low back pain; N20.0 Calculus of kidney; K43.9 Ventral hernia without obstruction or gangrene; M43.16 Spondylolisthesis, lumbar region; Z90.49 Acquired absence of other specified parts of digestive tract; Z98.890 Other specified postprocedural states
CPT/HCPCS: 74177; Q9967

== ENCOUNTER 2020-01-10 08:57 | Outpatient (CLI) | payer MEDICARE ==
--- NOTE | 2020-01-10 10:00 | MMO ---
Bilateral MAMMO Bilat Screen DDI+TIN. CLINICAL HISTORY: Patient is 64 years old and is seen for screening. The patient has no family history of breast cancer. The patient has a history of melanoma at age 44. VIEWS: The views performed were: bilateral craniocaudal with tomosynthesis and bilateral mediolateral oblique with tomosynthesis. FILMS COMPARED: The present examination has been compared to prior imaging studies performed at [facility] on 01/04/2018, 01/08/2019 and 09/10/2019. This study has been interpreted with the assistance of computer-aided detection. MAMMOGRAM FINDINGS: There are scattered fibroglandular densities. There are stable benign appearing calcifications seen in both breasts. There are also vascular calcifications. There are no suspicious masses, suspicious calcifications, or new areas of architectural distortion. IMPRESSION: THERE IS NO MAMMOGRAPHIC EVIDENCE OF MALIGNANCY. A ROUTINE FOLLOW-UP MAMMOGRAM IN 1 YEAR IS RECOMMENDED. THE RESULTS OF THIS EXAM WERE SENT TO THE PATIENT. ACR BI-RADS Category 2 - Benign finding MAMMOGRAPHY NOTE: 1. A negative mammogram report should not delay a biopsy if a dominant of clinically suspicious mass is present. 2. Approximately 10% to 15% of breast cancers are not detected by mammography. 3. Adenosis and dense breasts may obscure an underlying neoplasm. Reported by: ASHLY RESTREPO MD Electonically Signed: [id number]
== END 2020-01-10 08:58 | disposition home or self-care (01) ==
LOC: BICMAMMO 08:57
PROVIDERS: ATTEND Internal Medicine
DX: Z12.31 Encounter for screening mammogram for malignant neoplasm of breast (principal); Z85.820 Personal history of malignant melanoma of skin
CPT/HCPCS: 77063; 77067

== ENCOUNTER 2020-06-03 14:42 | Outpatient (CLI) | payer MEDICARE | END 2020-06-03 14:43 | disposition home or self-care (01) | LOC: BICRAD 14:42 | PROVIDERS: ATTEND Surgery | DX: M54.5 Low back pain (principal); M47.816 Spondylosis without myelopathy or radiculopathy, lumbar region; Z98.890 Other specified postprocedural states | CPT/HCPCS: 72100 ==

== ENCOUNTER 2020-12-10 07:25 | Outpatient (CLI) | payer MEDICARE | END 2020-12-10 07:26 | disposition home or self-care (01) | LOC: BICCT 07:25 | PROVIDERS: ATTEND Surgery | DX: M48.061 Spinal stenosis, lumbar region without neurogenic claudication (principal); M47.816 Spondylosis without myelopathy or radiculopathy, lumbar region; Z98.890 Other specified postprocedural states | CPT/HCPCS: 72131 ==

== ENCOUNTER 2021-04-14 13:32 | Outpatient (CLI) | payer MEDICARE | END 2021-04-14 13:33 | disposition home or self-care (01) | LOC: BICMAMMO 13:32 | PROVIDERS: ATTEND Internal Medicine | DX: Z12.31 Encounter for screening mammogram for malignant neoplasm of breast (principal); Z13.820 Encounter for screening for osteoporosis; Z78.0 Asymptomatic menopausal state; Z85.820 Personal history of malignant melanoma of skin | CPT/HCPCS: 77063; 77067; 77080 ==

== ENCOUNTER 2021-08-07 08:16 | Outpatient (CLI) | payer MEDICARE | END 2021-08-07 08:17 | disposition home or self-care (01) | LOC: BICMRI 08:16 | PROVIDERS: ATTEND Nurse Practitioner Family | DX: M48.02 Spinal stenosis, cervical region (principal); M47.812 Spondylosis without myelopathy or radiculopathy, cervical region | CPT/HCPCS: 72141 ==

== ENCOUNTER 2022-01-04 08:45 | Observation (INO) | payer MEDICARE ==
[2022-01-04 09:19] LABS: #Basophils 0.1 thou/uL (0.0-0.2); #Eosinphils 0.1 thou/uL (0.0-0.7); #Lymphocytes 3.3 thou/uL (1.20-3.40); #Monocytes 0.9 thou/uL (0.11-0.59); %Basophils 0.7 % (0.0-1.0); %Eosinophils 1.6 % (0.0-10.0); %Lymphocytes 45.1 % (21.0-51.0); %Neutrophils 40.6 % (42.0-75.0); Hemoglobin 15.2 g/dL (12.0-16.0); Mean Corpuscular HGB CONC 33.3 g/dL (32.0-36.0); Mean Corpuscular Hemoglobin 33.1 pg (27.0-31.0); Mean Corpuscular Volume 99.4 fL (78.0-98.0); Mean Platelet Volume 7.2 fL (7.4-10.4); Platelet Count 395 thou/uL (130-400); RBC Distribution Width 11.8 % (11.5-14.5); Red Blood Cell (RBC) Count 4.57 mill/uL (4.20-5.40); White Blood Cell (WBC) Count 7.3 thou/uL (4.8-10.8)
[2022-01-04 09:35] LABS: ALT (SGPT) 22 U/L (8-55); AST (SGOT) 19 U/L (5-34); Albumin 4.4 g/dL (3.4-4.8); Alkaline Phosphatase 81 U/L (40-110); Anion Gap 12 mmol/L (10-20); BUN (Urea Nitrogen) 10 mg/dL (9.8-20.1); Bilirubin, Total 0.4 mg/dL (0.2-1.2); Calc. Creatinine Clearance 0 mL/min (70-130); Calcium 9.4 mg/dL (7.8-10.44); Carbon Dioxide 28 mmol/L (23-31); Chloride 106 mmol/L (98-107); Estimated GFR 86; Globulin 3.6 g/dL (2.4-3.5); Glucose 105 mg/dL (80-115); Potassium 3.7 mmol/L (3.5-5.1); Sodium 142 mmol/L (136-145)
[2022-01-04] MEDS ORDERED: Aspirin Chewable 81 MG TAB ONE (09:57)
[2022-01-04] MEDS ORDERED: Nitroglycerin 2% Ointment 1 INCH/1 GM Packet ONE (14:31)
[2022-01-04] MEDS ORDERED: Ondansetron ODT 4 MG TAB PO PRN (14:34)
[2022-01-04] MEDS ORDERED: Ondansetron PF 4 MG/2 ML Vial IVP PRN (14:34)
[2022-01-04] MEDS ORDERED: Senokot S 8.6-50 MG TAB PO PRN (14:34)
[2022-01-04] MEDS ORDERED: Acetaminophen 325 MG TAB PO PRN (14:34)
[2022-01-04 14:53] LABS: Troponin I Less than 0.010 ng/mL (< 0.028)
[2022-01-04 15:28] VITALS: BMI 32.4
[2022-01-04] MEDS ORDERED: FLU VACC QS2022-23(6MOS UP)/PF 60 MCG/0.5 ML SYRINGE IM ONE (16:00)
[2022-01-04 16:49] LABS: Troponin I Less than 0.010 ng/mL (< 0.028)
[2022-01-04] MEDS: Sodium Chloride 0.9% 1,000 ML IV SCH (17:12)
[2022-01-04] MEDS ORDERED: Cyclobenzaprine 10 MG TAB PO PRN (18:23)
[2022-01-04] MEDS ORDERED: Aspirin/APAP/Caffeine Tab (Excedrin Migraine) PO PRN (20:06)
[2022-01-04] MEDS ORDERED: HYDROcodone/Acetaminophen 7.5/325 mg Tablet PO PRN (20:06)
[2022-01-04] MEDS: Nitroglycerin 2% Ointment 1 INCH/1 GM Packet TOP SCH (21:38)
[2022-01-04] MEDS ORDERED: Nebivolol HCl 5 MG TAB PO SCH (23:00)
[2022-01-04] MEDS ORDERED: lamoTRIgine 100 MG TAB PO SCH (23:00)
[2022-01-04] MEDS ORDERED: clonazePAM 1 MG TAB PO SCH (23:00)
[2022-01-04] MEDS ORDERED: Aripiprazole 10 MG TAB PO SCH (23:00)
[2022-01-04] MEDS ORDERED: Escitalopram Oxalate 20 mg Tablet PO SCH (23:00)
[2022-01-04] MEDS ORDERED: Valsartan 80 MG TAB PO SCH (23:00)
[2022-01-05 03:39] VITALS: TEMP 97.6
[2022-01-05 04:32] LABS: #Eosinphils 0.1 thou/uL (0.0-0.7); #Lymphocytes 2.8 thou/uL (1.20-3.40); #Monocytes 0.8 thou/uL (0.11-0.59); #Neutrophils 2.4 thou/uL (1.40-6.50); %Basophils 0.5 % (0.0-1.0); %Eosinophils 2.1 % (0.0-10.0); %Lymphocytes 44.8 % (21.0-51.0); %Monocytes 13.4 % (0.0-10.0); %Neutrophils 39.2 % (42.0-75.0); Hemoglobin 12.6 g/dL (12.0-16.0); Mean Corpuscular Hemoglobin 33.1 pg (27.0-31.0); Platelet Count 335 thou/uL (130-400); RBC Distribution Width 11.8 % (11.5-14.5); Red Blood Cell (RBC) Count 3.82 mill/uL (4.20-5.40); White Blood Cell (WBC) Count 6.2 thou/uL (4.8-10.8)
[2022-01-05 04:59] LABS: Anion Gap 12 mmol/L (10-20); BUN (Urea Nitrogen) 13 mg/dL (9.8-20.1); Calc. Creatinine Clearance 107 mL/min (70-130); Calcium 8.9 mg/dL (7.8-10.44); Carbon Dioxide 26 mmol/L (23-31); Chloride 106 mmol/L (98-107); Cholesterol 150 mg/dl (< 200 Desired); Estimated GFR 93; Glucose 104 mg/dL (80-115); HDL Cholesterol 50 mg/dL (>60 Neg Risk); LDL Cholesterol, Calculated 65 mg/dL; Potassium 3.2 mmol/L (3.5-5.1); Sodium 141 mmol/L (136-145); Triglycerides 173 mg/dL (Less than 150)
[2022-01-05] MEDS: Sodium Chloride 0.9% 1,000 ML IV SCH (05:19)
[2022-01-05] MEDS ORDERED: Levothyroxine Sodium 50 MCG TAB PO SCH (06:00)
[2022-01-05] MEDS: Pancrelipase DR 12,000 1 CAP PO SCH ×2 (08:04→13:14)
[2022-01-05] MEDS: Nitroglycerin 2% Ointment 1 INCH/1 GM Packet TOP SCH (08:05)
[2022-01-05] MEDS ORDERED: lamoTRIgine 100 MG TAB PO SCH ×2 (09:00→21:00)
[2022-01-05] MEDS ORDERED: Famotidine 20 MG TAB PO SCH (09:00)
[2022-01-05] MEDS ORDERED: Montelukast Sodium 10 mg Tablet PO SCH (09:00)
[2022-01-05] MEDS ORDERED: Escitalopram Oxalate 20 mg Tablet PO SCH ×2 (09:00→21:00)
[2022-01-05] MEDS ORDERED: Estradiol 1 MG TAB PO SCH (09:00)
[2022-01-05] MEDS ORDERED: Torsemide 10 MG TAB PO SCH (09:00)
[2022-01-05] MEDS ORDERED: Nebivolol HCl 5 MG TAB PO SCH ×2 (09:00→21:00)
[2022-01-05] MEDS ORDERED: clonazePAM 1 MG TAB PO SCH ×2 (09:00→21:00)
[2022-01-05] MEDS ORDERED: guanFACINE HCl 1 MG TAB PO SCH (09:00)
[2022-01-05] MEDS ORDERED: Leflunomide 10 mg Tablet PO SCH (09:00)
[2022-01-05] MEDS ORDERED: Loratadine 10 MG TAB PO SCH (09:00)
[2022-01-05] MEDS ORDERED: Aripiprazole 10 MG TAB PO SCH ×2 (09:00→21:00)
[2022-01-05] MEDS ORDERED: Valsartan 80 MG TAB PO SCH ×2 (09:00→21:00)
[2022-01-05] MEDS ORDERED: Meloxicam 15 MG TAB PO SCH (09:00)
[2022-01-05 13:19] VITALS: BP 159/67
[2022-01-05] MEDS ORDERED: ADENOSINE 60 MG/20 ML VIAL ONE (13:55)
[2022-01-08] MEDS ORDERED: Rosuvastatin 5 MG TAB PO SCH (21:00)
== END 2022-01-05 15:19 | disposition home or self-care (01) ==
LOC: ERS 08:45 → 2SW 14:52
PROVIDERS: ADMIT Internal Medicine; ATTEND Internal Medicine
DX: R07.89 Other chest pain (principal); R00.2 Palpitations; I10 Essential (primary) hypertension; E03.9 Hypothyroidism, unspecified; E78.5 Hyperlipidemia, unspecified; I25.10 Atherosclerotic heart disease of native coronary artery without angina pectoris; K86.1 Other chronic pancreatitis; M79.7 Fibromyalgia; K21.9 Gastro-esophageal reflux disease without esophagitis; M35.9 Systemic involvement of connective tissue, unspecified; Z87.891 Personal history of nicotine dependence; Z79.1 Long term (current) use of non-steroidal anti-inflammatories (NSAID); Z79.620 Long term (current) use of immunosuppressive biologic; Z79.890 Hormone replacement therapy; Z79.899 Other long term (current) drug therapy; Z88.1 Allergy status to other antibiotic agents; Z88.2 Allergy status to sulfonamides; Z88.8 Allergy status to other drugs, medicaments and biological substances; Z20.822 Contact with and (suspected) exposure to COVID-19
CPT/HCPCS: 71045; 78452; 80048; 80061; 83735; 84484 ×2; 85025; 85379; 93005; 93017; 99285; A9500; G0378 ×3; U0003; U0005; 36415; 80053; 84443; J0153; J7050

== ENCOUNTER 2022-01-27 11:03 | Outpatient (CLI) | payer MEDICARE | END 2022-01-27 11:04 | disposition home or self-care (01) | LOC: BICRAD 11:03 | PROVIDERS: ATTEND Internal Medicine | DX: M79.605 Pain in left leg (principal); M25.562 Pain in left knee ==

== ENCOUNTER 2022-09-07 07:47 | Outpatient (CLI) | payer MEDICARE | END 2022-09-07 07:48 | disposition home or self-care (01) | LOC: BICMRI 07:47 | PROVIDERS: ATTEND Surgery | DX: M48.062 Spinal stenosis, lumbar region with neurogenic claudication (principal); M47.816 Spondylosis without myelopathy or radiculopathy, lumbar region; M51.26 Other intervertebral disc displacement, lumbar region; Z98.890 Other specified postprocedural states | CPT/HCPCS: 72120; 72148 ==

== ENCOUNTER 2022-10-12 08:24 | Observation (INO) | payer MEDICARE ==
[2022-10-05 09:50] VITALS: BMI 30.9
[2022-10-12] MEDS ORDERED: HYDROmorphone 0.5 MG/0.5 ML SYRINGE ONE (12:46)
[2022-10-12] MEDS ORDERED: fentaNYL PF 100 MCG/2 ML SYRINGE ONE (12:46)
[2022-10-12] MEDS ORDERED: CEFAZOLIN 2 GM VIAL ONE (12:59)
[2022-10-12] MEDS ORDERED: Sodium Chloride 0.9% 100 ML ONE (12:59)
[2022-10-12] MEDS ORDERED: Vancomycin 1 GM VIAL ONE (13:08)
[2022-10-12] MEDS ORDERED: Thrombin 5000 UNITS/5 ML VIAL ONE (13:08)
[2022-10-12] MEDS ORDERED: Lidocaine 1% PF 5 ML VIAL ONE (13:14)
[2022-10-12] MEDS ORDERED: PHENYLEPHRINE-NS 100 MCG/ML 10 ML SYRINGE ONE (13:14)
[2022-10-12] MEDS ORDERED: Dexamethasone 20 MG/5 ML VIAL ONE (13:14)
[2022-10-12] MEDS ORDERED: Ondansetron PF 4 MG/2 ML Vial ONE (13:14)
[2022-10-12] MEDS ORDERED: Glycopyrrolate 0.2 MG/ML 5 ML SYRINGE ONE (13:14)
[2022-10-12] MEDS ORDERED: Rocuronium Bromide 10 MG/ML (10ML VIAL) ONE (13:14)
[2022-10-12] MEDS ORDERED: PROPOFOL 200 MG/20 ML VIAL ONE (13:14)
[2022-10-12] MEDS ORDERED: ePHEDrine Sulfate 50 MG/10 ML VIAL ONE (13:14)
[2022-10-12] MEDS ORDERED: Labetalol HCl 100 MG/20 ML VIAL ONE (13:14)
[2022-10-12] MEDS ORDERED: SUGAMMADEX SODIUM 200 MG/2 ML VIAL ONE (14:52)
[2022-10-12] MEDS ORDERED: Acetaminophen/Codeine 30-300mg Tablet PO PRN (15:16)
[2022-10-12] MEDS ORDERED: Morphine 2 MG/ML VIAL SLOW IVP PRN (15:16)
[2022-10-12] MEDS ORDERED: traMADol HCl 50 MG TAB PO PRN (15:16)
[2022-10-12] MEDS ORDERED: Acetaminophen 325 MG TAB PO PRN (15:16)
[2022-10-12] MEDS ORDERED: Promethazine HCl 25 MG/ML VIAL IM PRN (15:17)
[2022-10-12] MEDS ORDERED: Ondansetron HCl/PF 4 MG/2 ML Vial IVP PRN (15:17)
[2022-10-12] MEDS ORDERED: Morphine Sulfate 2 MG/ML SYRINGE SLOW IVP PRN (15:17)
[2022-10-12] MEDS ORDERED: HYDROmorphone 2 MG/ML VIAL SLOW IVP PRN (15:17)
[2022-10-12] MEDS ORDERED: tiZANidine HCl 4 MG TAB PO PRN (15:20)
[2022-10-12] MEDS ORDERED: hydrALAZINE 20 MG/ML VIAL SLOW IVP PRN (15:20)
[2022-10-12] MEDS ORDERED: Pseudoephedrine HCl 30 MG TAB PO PRN (15:21)
[2022-10-12] MEDS ORDERED: Hyoscyamine SL 0.125 MG TAB PO PRN (15:21)
[2022-10-12] MEDS ORDERED: Ondansetron ODT 4 MG TAB PO PRN (15:21)
[2022-10-12] MEDS ORDERED: clonazePAM 1 MG TAB PO PRN (15:21)
[2022-10-12] MEDS ORDERED: Loratadine 10 MG TAB PO PRN (15:42)
[2022-10-12] MEDS ORDERED: fentaNYL 50 mcg/mL 1 mL Vial ONE (15:45)
[2022-10-12] MEDS: Sodium Chloride 0.9% 1,000 ML IV SCH ×2 (17:06→20:42)
[2022-10-12] MEDS: Potassium Chloride 10 MEQ TAB PO SCH (20:41)
[2022-10-12] MEDS: CEFAZOLIN 2 GM in Sodium Chloride 0.9% 100 ML IVPB SCH (20:43)
[2022-10-12] MEDS: HYDROcodone/Acetaminophen 7.5/325 mg Tablet PO PRN (20:44)
[2022-10-12] MEDS ORDERED: Nebivolol HCl 5 MG TAB PO SCH (21:00)
[2022-10-12] MEDS ORDERED: Aripiprazole 10 MG TAB PO SCH (21:00)
[2022-10-12] MEDS ORDERED: lamoTRIgine 100 MG TAB PO SCH (21:00)
[2022-10-12] MEDS ORDERED: Escitalopram Oxalate 20 mg Tablet PO SCH (21:00)
[2022-10-12] MEDS ORDERED: guanFACINE HCl 1 MG TAB PO SCH (21:00)
[2022-10-12] MEDS ORDERED: Montelukast Sodium 10 mg Tablet PO SCH (21:00)
[2022-10-12] MEDS ORDERED: Valsartan 80 MG TAB PO SCH (21:00)
[2022-10-13] MEDS: HYDROcodone/Acetaminophen 7.5/325 mg Tablet PO PRN (05:48)
[2022-10-13] MEDS: CEFAZOLIN 2 GM in Sodium Chloride 0.9% 100 ML IVPB SCH (05:48)
[2022-10-13] MEDS ORDERED: Levothyroxine Sodium 50 MCG TAB PO SCH (06:00)
[2022-10-13 06:06] VITALS: TEMP 98.2
[2022-10-13 08:43] VITALS: BP 154/75
[2022-10-13] MEDS ORDERED: Estradiol 1 MG TAB PO SCH (09:00)
[2022-10-13] MEDS: Potassium Chloride 10 MEQ TAB PO SCH (09:12)
[2022-10-13] MEDS ORDERED: Rosuvastatin 5 MG TAB PO SCH (21:00)
== END 2022-10-13 12:05 | disposition home or self-care (01) ==
LOC: SDC 08:24 → T4-B 15:16
PROVIDERS: ADMIT Surgery; ATTEND Surgery
PROC: 01NB0ZZ Release Lumbar Nerve, Open Approach (ICD-10-PCS; principal; 2022-10-12)
PROC: 0SB20ZZ Excision of Lumbar Vertebral Disc, Open Approach (ICD-10-PCS; 2022-10-12)
DX: M48.062 Spinal stenosis, lumbar region with neurogenic claudication (principal); M51.16 Intervertebral disc disorders with radiculopathy, lumbar region
CPT/HCPCS: 63047; 63048; J3010; J1100; J1170; J2272; J2405; J2704; J3370; J3490; J7050; Q0162

== ENCOUNTER 2023-01-05 12:26 | Outpatient (CLI) | payer MEDICARE | END 2023-01-05 12:27 | disposition home or self-care (01) | LOC: MRI 12:26 | PROVIDERS: ATTEND Surgery | DX: M51.16 Intervertebral disc disorders with radiculopathy, lumbar region (principal); M48.061 Spinal stenosis, lumbar region without neurogenic claudication; M43.16 Spondylolisthesis, lumbar region; Z98.890 Other specified postprocedural states; Z98.1 Arthrodesis status | CPT/HCPCS: 72148 ==

== ENCOUNTER 2023-01-27 05:58 | Inpatient (IN) | payer MEDICARE ==
[2023-01-26 13:54] VITALS: BMI 30.9
[2023-01-27] MEDS ORDERED: Thrombin 5000 UNITS/5 ML VIAL ONE (06:43)
[2023-01-27] MEDS ORDERED: Vancomycin 1 GM VIAL ONE (06:43)
[2023-01-27] MEDS ORDERED: fentaNYL PF 100 MCG/2 ML SYRINGE ONE (06:43)
[2023-01-27] MEDS ORDERED: Vancomycin (BATCH) 1.5 GM/300 ML BAG ONE (07:19)
[2023-01-27] MEDS ORDERED: Midazolam HCl 2 mg/2 ml Vial ONE (07:30)
[2023-01-27] MEDS ORDERED: KETAMINE 100 MG/ML (5ML VIAL) ONE (07:32)
[2023-01-27] MEDS ORDERED: Famotidine/PF 20 mg/2ml Vial ONE (07:32)
[2023-01-27] MEDS ORDERED: PROPOFOL 200 MG/20 ML VIAL ONE (07:46)
[2023-01-27] MEDS ORDERED: Glycopyrrolate 0.2 MG/ML 5 ML SYRINGE ONE (07:46)
[2023-01-27] MEDS ORDERED: NEOSTIGMINE 3 MG/3 ML SYR 3 MG/3 ML SYRINGE ONE (07:46)
[2023-01-27] MEDS ORDERED: Dexamethasone 20 MG/5 ML VIAL ONE (07:46)
[2023-01-27] MEDS ORDERED: Ketorolac Tromethamine 30 MG/ML VIAL ONE (07:46)
[2023-01-27] MEDS ORDERED: Ondansetron PF 4 MG/2 ML Vial ONE (07:46)
[2023-01-27] MEDS ORDERED: Rocuronium Bromide 10 MG/ML (10ML VIAL) ONE (07:46)
[2023-01-27] MEDS ORDERED: Lidocaine 1% PF 5 ML VIAL ONE (07:46)
[2023-01-27] MEDS ORDERED: Ondansetron HCl/PF 4 MG/2 ML Vial IVP PRN (08:38)
[2023-01-27] MEDS ORDERED: Morphine Sulfate 2 MG/ML SYRINGE SLOW IVP PRN (08:38)
[2023-01-27] MEDS ORDERED: PACU-Morphine 4MG/ML VIAL SLOW IVP PRN (08:38)
[2023-01-27] MEDS ORDERED: Promethazine HCl 25 MG/ML VIAL IM PRN (08:38)
[2023-01-27] MEDS ORDERED: HYDROmorphone 2 MG/ML VIAL SLOW IVP PRN (08:38)
[2023-01-27] MEDS ORDERED: Morphine 2 MG/ML VIAL SLOW IVP PRN (09:04)
[2023-01-27] MEDS ORDERED: Acetaminophen 325 MG TAB PO PRN (09:04)
[2023-01-27] MEDS ORDERED: Milk Of Magnesia 30 ML UDCUP PO PRN (09:04)
[2023-01-27] MEDS ORDERED: tiZANidine HCl 4 MG TAB PO PRN (09:11)
[2023-01-27] MEDS ORDERED: Promethazine HCl 12.5 MG in Sodium Chloride 0.9% 50 ML IVPB PRN (09:11)
[2023-01-27] MEDS ORDERED: Pseudoephedrine HCl 30 MG TAB PO PRN (09:14)
[2023-01-27] MEDS ORDERED: Ondansetron ODT 4 MG TAB PO PRN (09:14)
[2023-01-27] MEDS ORDERED: fentaNYL 50 mcg/mL 1 mL Vial ONE ×2 (09:37→09:53)
[2023-01-27] MEDS ORDERED: VANCOMYCIN IVPB PRN (09:41)
[2023-01-27] MEDS: Cefepime 2 GM in Sodium Chloride 0.9% 100 ML IVPB SCH ×2 (11:23→22:04)
[2023-01-27] MEDS: Sodium Chloride 0.9% 1,000 ML IV SCH (11:24)
[2023-01-27] MEDS: metroNIDAZOLE 500 MG in Premix 1 BAG IVPB SCH ×2 (12:06→17:02)
[2023-01-27] MEDS: Pancrelipase DR 12,000 1 CAP PO SCH ×2 (12:57→17:02)
[2023-01-27] MEDS: Potassium Chloride 10 MEQ TAB PO SCH (17:01)
[2023-01-27] MEDS: HYDROcodone/Acetaminophen 7.5/325 mg Tablet PO PRN (18:48)
[2023-01-27] MEDS: Nebivolol HCl 5 MG TAB PO SCH (19:56)
[2023-01-27] MEDS: Escitalopram Oxalate 20 mg Tablet PO SCH (19:56)
[2023-01-27] MEDS: clonazePAM 1 MG TAB PO SCH (19:56)
[2023-01-27] MEDS: Rosuvastatin 5 MG TAB PO SCH (19:57)
[2023-01-27] MEDS: Valsartan 80 MG TAB PO SCH (19:57)
[2023-01-27] MEDS: Aripiprazole 10 MG TAB PO SCH (19:57)
[2023-01-27] MEDS: Montelukast Sodium 10 mg Tablet PO SCH (19:57)
[2023-01-27] MEDS: lamoTRIgine 100 MG TAB PO SCH (19:57)
[2023-01-27] MEDS: Vancomycin 1 GM in Premix 1 BAG IVPB SCH (19:58)
[2023-01-27] MEDS: guanFACINE HCl 1 MG TAB PO SCH (22:03)
[2023-01-27] MEDS: Meloxicam 15 MG TAB PO SCH (22:04)
[2023-01-27] MEDS: Acetaminophen/Codeine 30-300mg Tablet PO PRN (22:04)
[2023-01-28] MEDS: HYDROcodone/Acetaminophen 7.5/325 mg Tablet PO PRN ×3 (01:12→17:48)
[2023-01-28] MEDS: metroNIDAZOLE 500 MG in Premix 1 BAG IVPB SCH ×3 (01:13→17:41)
[2023-01-28] MEDS: Acetaminophen/Codeine 30-300mg Tablet PO PRN ×3 (05:00→21:11)
[2023-01-28] MEDS: Levothyroxine Sodium 50 MCG TAB PO SCH (05:00)
[2023-01-28 06:15] LABS: #Monocytes 0.7 thou/uL (0.11-0.59); #Neutrophils 5.8 thou/uL (1.40-6.50); %Basophils 0.2 % (0.0-1.0); %Lymphocytes 20.2 % (21.0-51.0); %Monocytes 8.9 % (0.0-10.0); %Neutrophils 70.3 % (42.0-75.0); Hematocrit 33.6 % (36.0-47.0); Hemoglobin 10.8 g/dL (12.0-16.0); Mean Corpuscular HGB CONC 32.1 g/dL (32.0-36.0); Mean Corpuscular Hemoglobin 31.4 pg (27.0-31.0); Mean Corpuscular Volume 97.7 fl (78.0-98.0); Mean Platelet Volume 11.3 fL (7.4-10.4); Platelet Count 127 10x3/uL (130-400); RBC Distribution Width 13.4 % (11.5-14.5); Red Blood Cell (RBC) Count 3.44 mill/uL (4.20-5.40); White Blood Cell (WBC) Count 8.2 10x3/uL (4.8-10.8)
[2023-01-28] MEDS: Torsemide 10 MG TAB PO SCH (08:31)
[2023-01-28] MEDS: Estradiol 1 MG TAB PO SCH (08:31)
[2023-01-28] MEDS: Loratadine 10 MG TAB PO SCH (08:31)
[2023-01-28] MEDS: Potassium Chloride 10 MEQ TAB PO SCH ×2 (08:31→17:41)
[2023-01-28] MEDS: Vancomycin 1 GM in Premix 1 BAG IVPB SCH ×2 (08:32→21:12)
[2023-01-28] MEDS: Cefepime 2 GM in Sodium Chloride 0.9% 100 ML IVPB SCH ×2 (09:45→22:21)
[2023-01-28] MEDS: Pancrelipase DR 12,000 1 CAP PO SCH ×3 (10:23→17:41)
[2023-01-28] MEDS: Sodium Chloride 0.9% 1,000 ML IV SCH ×2 (13:15)
[2023-01-28 20:46] LABS: Vancomycin, Trough 10.6 ug/mL
[2023-01-28] MEDS: Montelukast Sodium 10 mg Tablet PO SCH (21:10)
[2023-01-28] MEDS: Aripiprazole 10 MG TAB PO SCH (21:10)
[2023-01-28] MEDS: Meloxicam 15 MG TAB PO SCH (21:10)
[2023-01-28] MEDS: Valsartan 80 MG TAB PO SCH (21:10)
[2023-01-28] MEDS: guanFACINE HCl 1 MG TAB PO SCH (21:10)
[2023-01-28] MEDS: Escitalopram Oxalate 20 mg Tablet PO SCH (21:11)
[2023-01-28] MEDS: clonazePAM 1 MG TAB PO SCH (21:11)
[2023-01-28] MEDS: lamoTRIgine 100 MG TAB PO SCH (21:11)
[2023-01-28] MEDS: Nebivolol HCl 5 MG TAB PO SCH (21:12)
[2023-01-29] MEDS: Sodium Chloride 0.9% 1,000 ML IV SCH ×2 (00:49→15:22)
[2023-01-29] MEDS: metroNIDAZOLE 500 MG in Premix 1 BAG IVPB SCH ×3 (00:54→17:09)
[2023-01-29] MEDS: HYDROcodone/Acetaminophen 7.5/325 mg Tablet PO PRN ×3 (03:51→22:32)
[2023-01-29] MEDS: Levothyroxine Sodium 50 MCG TAB PO SCH (06:22)
[2023-01-29] MEDS: Estradiol 1 MG TAB PO SCH (09:01)
[2023-01-29] MEDS: Torsemide 10 MG TAB PO SCH (09:01)
[2023-01-29] MEDS: Vancomycin 1 GM in Premix 1 BAG IVPB SCH ×2 (09:01→19:23)
[2023-01-29] MEDS: Pancrelipase DR 12,000 1 CAP PO SCH ×3 (09:01→17:09)
[2023-01-29] MEDS: Loratadine 10 MG TAB PO SCH (09:01)
[2023-01-29] MEDS: Potassium Chloride 10 MEQ TAB PO SCH ×2 (09:01→17:09)
[2023-01-29] MEDS: Cefepime 2 GM in Sodium Chloride 0.9% 100 ML IVPB SCH ×2 (09:02→21:13)
[2023-01-29] MEDS: traMADol HCl 50 MG TAB PO PRN (09:11)
[2023-01-29] MEDS: Meloxicam 15 MG TAB PO SCH (21:03)
[2023-01-29] MEDS: guanFACINE HCl 1 MG TAB PO SCH (21:03)
[2023-01-29] MEDS: Valsartan 80 MG TAB PO SCH (21:05)
[2023-01-29] MEDS: Rosuvastatin 5 MG TAB PO SCH (21:05)
[2023-01-29] MEDS: lamoTRIgine 100 MG TAB PO SCH (21:07)
[2023-01-29] MEDS: Nebivolol HCl 5 MG TAB PO SCH (21:07)
[2023-01-29] MEDS: Escitalopram Oxalate 20 mg Tablet PO SCH (21:08)
[2023-01-29] MEDS: clonazePAM 1 MG TAB PO SCH (21:09)
[2023-01-29] MEDS: Montelukast Sodium 10 mg Tablet PO SCH (21:09)
[2023-01-29] MEDS: Aripiprazole 10 MG TAB PO SCH (21:09)
[2023-01-30] MEDS: metroNIDAZOLE 500 MG in Premix 1 BAG IVPB SCH ×2 (02:25→10:24)
[2023-01-30] MEDS: Levothyroxine Sodium 50 MCG TAB PO SCH (05:04)
[2023-01-30] MEDS: hydrALAZINE 20 MG/ML VIAL SLOW IVP PRN ×2 (05:07→08:17)
[2023-01-30] MEDS: Sodium Chloride 0.9% 1,000 ML IV SCH ×2 (05:13→18:07)
[2023-01-30 07:47] LABS: Vancomycin, Trough 11.2 ug/mL
[2023-01-30] MEDS: Pancrelipase DR 12,000 1 CAP PO SCH ×3 (08:15→18:05)
[2023-01-30] MEDS: Potassium Chloride 10 MEQ TAB PO SCH ×2 (08:15→18:06)
[2023-01-30] MEDS: Vancomycin 1 GM in Premix 1 BAG IVPB SCH (08:15)
[2023-01-30] MEDS: Estradiol 1 MG TAB PO SCH (08:15)
[2023-01-30] MEDS: Torsemide 10 MG TAB PO SCH (08:16)
[2023-01-30] MEDS: Loratadine 10 MG TAB PO SCH (08:16)
[2023-01-30] MEDS: HYDROcodone/Acetaminophen 7.5/325 mg Tablet PO PRN (08:30)
[2023-01-30] MEDS: Cefepime 2 GM in Sodium Chloride 0.9% 100 ML IVPB SCH (09:34)
[2023-01-30] MEDS ORDERED: Metoprolol Tartrate 50 MG TAB PO SCH (15:30)
[2023-01-30 16:47] LABS: Anion Gap 16 mmol/L (10-20); BUN (Urea Nitrogen) 15 mg/dL (9.8-20.1); Calc. Creatinine Clearance 88 mL/min (70-130); Calcium 9.2 mg/dL (7.8-10.44); Carbon Dioxide 27 mmol/L (23-31); Chloride 103 mmol/L (98-107); Estimated GFR 79; Glucose 105 mg/dL (80-115); Potassium 3.6 mmol/L (3.5-5.1); Sodium 142 mmol/L (136-145)
[2023-01-30] MEDS: Ampicillin 2 GM in Sodium Chloride 0.9% 100 ML IVPB SCH ×2 (18:04→23:35)
[2023-01-30] MEDS: guanFACINE HCl 1 MG TAB PO SCH (20:53)
[2023-01-30] MEDS: Valsartan 80 MG TAB PO SCH (20:53)
[2023-01-30] MEDS: Flecainide 50 MG TAB PO SCH (20:53)
[2023-01-30] MEDS: Aripiprazole 10 MG TAB PO SCH (20:53)
[2023-01-30] MEDS: Rosuvastatin 5 MG TAB PO SCH (20:53)
[2023-01-30] MEDS: lamoTRIgine 100 MG TAB PO SCH (20:53)
[2023-01-30] MEDS: clonazePAM 1 MG TAB PO SCH (20:54)
[2023-01-30] MEDS: Metoprolol Tartrate 50 MG TAB PO SCH (20:54)
[2023-01-30] MEDS: Montelukast Sodium 10 mg Tablet PO SCH (20:54)
[2023-01-30] MEDS: Escitalopram Oxalate 20 mg Tablet PO SCH (20:54)
[2023-01-30] MEDS: Meloxicam 15 MG TAB PO SCH (20:54)
[2023-01-31] MEDS: Ampicillin 2 GM in Sodium Chloride 0.9% 100 ML IVPB SCH ×3 (05:58→17:04)
[2023-01-31] MEDS: Levothyroxine Sodium 50 MCG TAB PO SCH (05:58)
[2023-01-31] MEDS: Sodium Chloride 0.9% 1,000 ML IV SCH (05:58)
[2023-01-31 06:34] LABS: #Basophils 0.1 thou/uL (0.0-0.2); #Eosinphils 0.2 thou/uL (0.0-0.7); #Neutrophils 2.6 thou/uL (1.40-6.50); %Basophils 0.9 % (0.0-1.0); %Eosinophils 3.3 % (0.0-10.0); %Lymphocytes 43.9 % (21.0-51.0); %Neutrophils 37.6 % (42.0-75.0); Hematocrit 36.5 % (36.0-47.0); Hemoglobin 11.7 g/dL (12.0-16.0); Mean Corpuscular HGB CONC 32.1 g/dL (32.0-36.0); Mean Corpuscular Hemoglobin 30.9 pg (27.0-31.0); Mean Corpuscular Volume 96.3 fl (78.0-98.0); Mean Platelet Volume 11.2 fL (7.4-10.4); Platelet Count 152 10x3/uL (130-400); RBC Distribution Width 13.7 % (11.5-14.5); Red Blood Cell (RBC) Count 3.79 mill/uL (4.20-5.40); White Blood Cell (WBC) Count 6.9 10x3/uL (4.8-10.8)
[2023-01-31 07:07] LABS: Anion Gap 12 mmol/L (10-20); BUN (Urea Nitrogen) 16 mg/dL (9.8-20.1); CRP (Inflammatory) Less than 0.50 mg/dL (= or < 0.5); Calc. Creatinine Clearance 108 mL/min (70-130); Carbon Dioxide 27 mmol/L (23-31); Chloride 106 mmol/L (98-107); Estimated GFR 97; Glucose 78 mg/dL (80-115); Potassium 3.1 mmol/L (3.5-5.1); Sodium 142 mmol/L (136-145)
[2023-01-31] MEDS: Loratadine 10 MG TAB PO SCH (08:29)
[2023-01-31] MEDS: Estradiol 1 MG TAB PO SCH (08:29)
[2023-01-31] MEDS: Potassium Chloride 10 MEQ TAB PO SCH ×2 (08:29→16:58)
[2023-01-31] MEDS: Metoprolol Tartrate 50 MG TAB PO SCH (08:29)
[2023-01-31] MEDS: HYDROcodone/Acetaminophen 7.5/325 mg Tablet PO PRN ×3 (08:30→22:15)
[2023-01-31] MEDS: Flecainide 50 MG TAB PO SCH ×2 (08:31→20:34)
[2023-01-31] MEDS: Torsemide 10 MG TAB PO SCH (08:31)
[2023-01-31] MEDS: Pancrelipase DR 12,000 1 CAP PO SCH ×3 (08:47→18:03)
[2023-01-31] MEDS ORDERED: Nebivolol HCl 5 MG TAB PO SCH (10:45)
[2023-01-31] MEDS: traMADol HCl 50 MG TAB PO PRN (12:30)
[2023-01-31] MEDS: Nebivolol HCl 5 MG TAB PO SCH (20:32)
[2023-01-31] MEDS: guanFACINE HCl 1 MG TAB PO SCH (20:32)
[2023-01-31] MEDS: Meloxicam 15 MG TAB PO SCH (20:32)
[2023-01-31] MEDS: lamoTRIgine 100 MG TAB PO SCH (20:33)
[2023-01-31] MEDS: Aripiprazole 10 MG TAB PO SCH (20:33)
[2023-01-31] MEDS: Valsartan 80 MG TAB PO SCH (20:33)
[2023-01-31] MEDS: Escitalopram Oxalate 20 mg Tablet PO SCH (20:34)
[2023-01-31] MEDS: clonazePAM 1 MG TAB PO SCH (20:34)
[2023-01-31] MEDS: Montelukast Sodium 10 mg Tablet PO SCH (20:34)
[2023-02-01] MEDS: Ampicillin 2 GM in Sodium Chloride 0.9% 100 ML IVPB SCH ×4 (00:31→20:42)
[2023-02-01] MEDS: Levothyroxine Sodium 50 MCG TAB PO SCH (05:52)
[2023-02-01] MEDS ORDERED: Nebivolol HCl 5 MG TAB PO SCH (09:00)
[2023-02-01] MEDS: Estradiol 1 MG TAB PO SCH (09:33)
[2023-02-01] MEDS: Potassium Chloride 10 MEQ TAB PO SCH ×2 (09:33→17:43)
[2023-02-01] MEDS: Torsemide 10 MG TAB PO SCH (09:34)
[2023-02-01] MEDS: Loratadine 10 MG TAB PO SCH (09:34)
[2023-02-01] MEDS: Flecainide 50 MG TAB PO SCH ×2 (10:40→20:42)
[2023-02-01] MEDS: Pancrelipase DR 12,000 1 CAP PO SCH ×3 (10:42→17:43)
[2023-02-01] MEDS: Valsartan 80 MG TAB PO SCH (20:41)
[2023-02-01] MEDS: HYDROcodone/Acetaminophen 7.5/325 mg Tablet PO PRN (20:41)
[2023-02-01] MEDS: Escitalopram Oxalate 20 mg Tablet PO SCH (20:41)
[2023-02-01] MEDS: clonazePAM 1 MG TAB PO SCH (20:41)
[2023-02-01] MEDS: Montelukast Sodium 10 mg Tablet PO SCH (20:41)
[2023-02-01] MEDS: Rosuvastatin 5 MG TAB PO SCH (20:41)
[2023-02-01] MEDS: lamoTRIgine 100 MG TAB PO SCH (20:41)
[2023-02-01] MEDS: Nebivolol HCl 5 MG TAB PO SCH (20:41)
[2023-02-01] MEDS: Aripiprazole 10 MG TAB PO SCH (20:42)
[2023-02-01] MEDS: Meloxicam 15 MG TAB PO SCH (20:55)
[2023-02-01] MEDS: guanFACINE HCl 1 MG TAB PO SCH (20:55)
[2023-02-02] MEDS: Ampicillin 2 GM in Sodium Chloride 0.9% 100 ML IVPB SCH ×6 (01:01→20:02)
[2023-02-02] MEDS: Levothyroxine Sodium 50 MCG TAB PO SCH (04:59)
[2023-02-02 09:07] LABS: Anion Gap 11 mmol/L (10-20); BUN (Urea Nitrogen) 12 mg/dL (9.8-20.1); Calc. Creatinine Clearance 102 mL/min (70-130); Calcium 8.7 mg/dL (7.8-10.44); Carbon Dioxide 28 mmol/L (23-31); Chloride 107 mmol/L (98-107); Estimated GFR 94; Glucose 99 mg/dL (80-115); Potassium 3.8 mmol/L (3.5-5.1); Sodium 142 mmol/L (136-145)
[2023-02-02] MEDS: Estradiol 1 MG TAB PO SCH (09:36)
[2023-02-02] MEDS: Flecainide 50 MG TAB PO SCH ×2 (09:37→20:01)
[2023-02-02] MEDS: Potassium Chloride 10 MEQ TAB PO SCH ×2 (09:40→17:04)
[2023-02-02] MEDS: Torsemide 10 MG TAB PO SCH (09:40)
[2023-02-02] MEDS: Pancrelipase DR 12,000 1 CAP PO SCH ×3 (09:40→17:04)
[2023-02-02] MEDS: Loratadine 10 MG TAB PO SCH (09:40)
[2023-02-02] MEDS: HYDROcodone/Acetaminophen 7.5/325 mg Tablet PO PRN ×2 (10:29→20:02)
[2023-02-02] MEDS: Escitalopram Oxalate 20 mg Tablet PO SCH (20:01)
[2023-02-02] MEDS: Nebivolol HCl 5 MG TAB PO SCH (20:01)
[2023-02-02] MEDS: Aripiprazole 10 MG TAB PO SCH (20:01)
[2023-02-02] MEDS: Valsartan 80 MG TAB PO SCH (20:01)
[2023-02-02] MEDS: Montelukast Sodium 10 mg Tablet PO SCH (20:01)
[2023-02-02] MEDS: clonazePAM 1 MG TAB PO SCH (20:02)
[2023-02-02] MEDS: lamoTRIgine 100 MG TAB PO SCH (20:02)
[2023-02-02] MEDS: Meloxicam 15 MG TAB PO SCH (21:02)
[2023-02-02] MEDS: guanFACINE HCl 1 MG TAB PO SCH (21:02)
[2023-02-03] MEDS: Ampicillin 2 GM in Sodium Chloride 0.9% 100 ML IVPB SCH ×4 (01:14→13:19)
[2023-02-03 05:11] VITALS: TEMP 98.1
[2023-02-03] MEDS: Levothyroxine Sodium 50 MCG TAB PO SCH (05:12)
[2023-02-03] MEDS: Potassium Chloride 10 MEQ TAB PO SCH (09:19)
[2023-02-03] MEDS: Loratadine 10 MG TAB PO SCH (09:19)
[2023-02-03] MEDS: Estradiol 1 MG TAB PO SCH (09:19)
[2023-02-03] MEDS: Flecainide 50 MG TAB PO SCH (09:20)
[2023-02-03] MEDS: Pancrelipase DR 12,000 1 CAP PO SCH ×2 (09:20→13:19)
[2023-02-03] MEDS: Torsemide 10 MG TAB PO SCH (09:20)
[2023-02-03] MEDS: HYDROcodone/Acetaminophen 7.5/325 mg Tablet PO PRN (09:22)
[2023-02-03 13:48] VITALS: BP 159/89
[2023-02-03] MEDS ORDERED: Hyoscyamine SL 0.125 MG TAB PO PRN (18:42)
== END 2023-02-03 15:42 | disposition home or self-care (01) | DRG 920 ==
LOC: SDC 05:58 → SURG A 09:04 → INTOOBSV 01-28 11:49 → OBSVTOIN 01-28 11:49 → 2NO 01-30 16:50 → SURG A 01-31 22:02
PROVIDERS: ADMIT Surgery; ATTEND Surgery
PROC: 0J970ZZ Drainage of Back Subcutaneous Tissue and Fascia, Open Approach (ICD-10-PCS; principal; 2023-01-27)
PROC: 02HV33Z Insertion of Infusion Device into Superior Vena Cava, Percutaneous Approach (ICD-10-PCS; 2023-02-01)
PROC: B5181ZA Fluoroscopy of Superior Vena Cava using Low Osmolar Contrast, Guidance (ICD-10-PCS; 2023-02-01)
PROC: 3E04329 Introduction of Other Anti-infective into Central Vein, Percutaneous Approach (ICD-10-PCS; 2023-02-01)
PROC: B548ZZA Ultrasonography of Superior Vena Cava, Guidance (ICD-10-PCS; 2023-02-01)
DX: T81.31XA Disruption of external operation (surgical) wound, not elsewhere classified, initial encounter (principal); T81.41XA Infection following a procedure, superficial incisional surgical site, initial encounter; I48.0 Paroxysmal atrial fibrillation; L24.A9 Irritant contact dermatitis due friction or contact with other specified body fluids; M79.0 Rheumatism, unspecified; L08.9 Local infection of the skin and subcutaneous tissue, unspecified; I10 Essential (primary) hypertension; I25.10 Atherosclerotic heart disease of native coronary artery without angina pectoris; E78.5 Hyperlipidemia, unspecified; F41.9 Anxiety disorder, unspecified; M06.9 Rheumatoid arthritis, unspecified; K21.9 Gastro-esophageal reflux disease without esophagitis; M54.9 Dorsalgia, unspecified; G89.29 Other chronic pain; B95.2 Enterococcus as the cause of diseases classified elsewhere; E03.9 Hypothyroidism, unspecified; E87.6 Hypokalemia; Z90.710 Acquired absence of both cervix and uterus; Z90.89 Acquired absence of other organs; Z90.49 Acquired absence of other specified parts of digestive tract; Z98.890 Other specified postprocedural states; Z88.8 Allergy status to other drugs, medicaments and biological substances; Z88.2 Allergy status to sulfonamides; Z85.820 Personal history of malignant melanoma of skin; Z88.1 Allergy status to other antibiotic agents; Z87.891 Personal history of nicotine dependence
CPT/HCPCS: 36415; 36569; 80048; 80202; 82565; 85025; 86140; 87040; 87070; 87077; 87186; 87205; 93005; 93010; 93306; 93970; 96365; 96366; 96367; 96376; C1751; G0378; J0290; J0360; J0692; J1100; J1885; J2250; J2272; J2405; J2704; J3010; J3370; J3370-JW; J3490; J7050; Q0162; S0028

== ENCOUNTER 2023-04-05 02:00 | Inpatient (IN) | payer MEDICARE ==
[2023-04-05 03:25] LABS: #Basophils 0.1 thou/uL (0.0-0.2); #Eosinphils 0.2 thou/uL (0.0-0.7); #Monocytes 1.4 thou/uL (0.11-0.59); #Neutrophils 2.8 thou/uL (1.40-6.50); %Basophils 0.7 % (0.0-1.0); %Eosinophils 2.7 % (0.0-10.0); %Lymphocytes 41.8 % (21.0-51.0); %Monocytes 17.9 % (0.0-10.0); %Neutrophils 36.8 % (42.0-75.0); Hematocrit 37.9 % (36.0-47.0); Hemoglobin 12.4 g/dL (12.0-16.0); Mean Corpuscular HGB CONC 32.7 g/dL (32.0-36.0); Mean Corpuscular Hemoglobin 31.3 pg (27.0-31.0); Mean Corpuscular Volume 95.7 fl (78.0-98.0); Mean Platelet Volume 10.7 fL (7.4-10.4); Platelet Count 256 10x3/uL (130-400); RBC Distribution Width 13.9 % (11.5-14.5); Red Blood Cell (RBC) Count 3.96 mill/uL (4.20-5.40); White Blood Cell (WBC) Count 7.7 10x3/uL (4.8-10.8)
[2023-04-05 03:37] LABS: INR-International Normal Ratio 0.9; Prothrombin Time 12.4 sec (12.0-14.7)
[2023-04-05 03:38] LABS: PTT 30.7 sec (22.9-36.1)
[2023-04-05 03:47] LABS: CRP (Inflammatory) 8.05 mg/dL (= or < 0.5); Magnesium 2.2 mg/dL (1.6-2.6)
[2023-04-05 03:49] LABS: ALT (SGPT) 16 U/L (8-55); AST (SGOT) 16 U/L (5-34); Albumin 3.9 g/dL (3.4-4.8); Alkaline Phosphatase 86 U/L (40-110); Anion Gap 13 mmol/L (10-20); BUN (Urea Nitrogen) 16 mg/dL (9.8-20.1); Bilirubin, Total 0.2 mg/dL (0.2-1.2); Calc. Creatinine Clearance 0 mL/min (70-130); Calcium 9.5 mg/dL (7.8-10.44); Carbon Dioxide 24 mmol/L (23-31); Chloride 105 mmol/L (98-107); Estimated GFR 79; Globulin 3.1 g/dL (2.4-3.5); Glucose 92 mg/dL (80-115); Sodium 138 mmol/L (136-145)
[2023-04-05] MEDS ORDERED: fentaNYL 50 mcg/mL 1 mL Vial ONE ×4 (03:50→16:38)
[2023-04-05] MEDS ORDERED: Vancomycin (BATCH) 1.25 GM in Premix 1 BAG IVPB SCH (04:15)
[2023-04-05] MEDS ORDERED: Piperacillin/Tazobactam 4.5 GM VIAL ONE (04:57)
[2023-04-05] MEDS ORDERED: Sodium Chloride 0.9% 100 ML ONE ×2 (04:57→13:02)
[2023-04-05] MEDS ORDERED: Lactated Ringer's 1,000 ML IV SCH (08:15)
[2023-04-05] MEDS ORDERED: Ondansetron ODT 4 MG TAB PO PRN (08:23)
[2023-04-05] MEDS ORDERED: Acetaminophen 325 MG TAB PO PRN (08:23)
[2023-04-05] MEDS ORDERED: Morphine 4 MG/ML VIAL SLOW IVP PRN (08:28)
[2023-04-05 09:02] VITALS: BMI 30.9
[2023-04-05] MEDS ORDERED: Vancomycin HCl 500 MG in Sodium Chloride 0.9% 100 ML IVPB SCH (09:15)
[2023-04-05] MEDS ORDERED: FLU VACC QS2023(65UP)/MF59C/PF 60 MCG/0.5 ML SYRINGE IM ONE (10:00)
[2023-04-05] MEDS: Cefepime 2 GM in Sodium Chloride 0.9% 100 ML IVPB SCH ×2 (10:42→21:07)
[2023-04-05] MEDS ORDERED: Cefepime 2 GM in Sodium Chloride 0.9% 100 ML IVPB SCH (11:00)
[2023-04-05] MEDS ORDERED: Lidocaine 1% PF 5 ML VIAL ONE (12:43)
[2023-04-05] MEDS ORDERED: Rocuronium Bromide 10 MG/ML (10ML VIAL) ONE (12:43)
[2023-04-05] MEDS ORDERED: PROPOFOL 20 ML ONE (12:43)
[2023-04-05] MEDS ORDERED: Vancomycin 1 GM VIAL ONE (12:50)
[2023-04-05] MEDS ORDERED: Thrombin 5000 UNITS/5 ML VIAL ONE (12:51)
[2023-04-05] MEDS ORDERED: Glycopyrrolate 0.2 MG/ML 5 ML SYRINGE ONE (13:00)
[2023-04-05] MEDS ORDERED: NEOSTIGMINE 3 MG/3 ML SYR 3 MG/3 ML SYRINGE ONE (13:00)
[2023-04-05] MEDS ORDERED: Dexmedetomidine 200 MCG/2 ML VIAL ONE (13:02)
[2023-04-05] MEDS ORDERED: Magnevist 469MG/ML 20 ML VIAL ONE (13:13)
[2023-04-05] MEDS ORDERED: Ondansetron PF 4 MG/2 ML Vial ONE ×2 (14:58→15:19)
[2023-04-05] MEDS ORDERED: Dexamethasone 20 MG/5 ML VIAL ONE ×2 (14:58→15:00)
[2023-04-05] MEDS ORDERED: SUGAMMADEX SODIUM 200 MG/2 ML VIAL ONE (16:01)
[2023-04-05] MEDS ORDERED: hydrALAZINE 20 MG/ML VIAL ONE ×2 (16:09)
[2023-04-05] MEDS ORDERED: Milk Of Magnesia 30 ML UDCUP PO PRN (16:29)
[2023-04-05] MEDS ORDERED: HYDROmorphone 0.5 MG/0.5 ML SYRINGE ONE ×2 (17:01→18:21)
[2023-04-05] MEDS: HYDROcodone/Acetaminophen 10/325 mg Tablet PO PRN (19:37)
[2023-04-05] MEDS: Potassium Chloride 10 MEQ TAB PO SCH (19:38)
[2023-04-05] MEDS: Docusate 100 MG CAP PO SCH (19:38)
[2023-04-05] MEDS: Morphine 4 MG/ML VIAL SLOW IVP PRN (20:54)
[2023-04-05] MEDS: Methocarbamol 500 MG TAB PO PRN (21:06)
[2023-04-05] MEDS: Vancomycin 1 GM in Premix 1 BAG IVPB SCH (23:20)
[2023-04-06] MEDS: HYDROcodone/Acetaminophen 10/325 mg Tablet PO PRN ×4 (01:32→20:36)
[2023-04-06] MEDS: Morphine 4 MG/ML VIAL SLOW IVP PRN (04:08)
[2023-04-06 04:30] LABS: #Monocytes 0.2 thou/uL (0.11-0.59); #Neutrophils 6.7 thou/uL (1.40-6.50); %Basophils 0.2 % (0.0-1.0); %Lymphocytes 16.6 % (21.0-51.0); %Monocytes 2.3 % (0.0-10.0); %Neutrophils 80.5 % (42.0-75.0); Hematocrit 36.3 % (36.0-47.0); Hemoglobin 12.2 g/dL (12.0-16.0); Mean Corpuscular HGB CONC 33.6 g/dL (32.0-36.0); Mean Corpuscular Hemoglobin 31.7 pg (27.0-31.0); Mean Corpuscular Volume 94.3 fl (78.0-98.0); Mean Platelet Volume 10.4 fL (7.4-10.4); Platelet Count 310 10x3/uL (130-400); RBC Distribution Width 13.8 % (11.5-14.5); Red Blood Cell (RBC) Count 3.85 mill/uL (4.20-5.40); White Blood Cell (WBC) Count 8.4 10x3/uL (4.8-10.8)
[2023-04-06 04:40] LABS: Anion Gap 12 mmol/L (10-20); BUN (Urea Nitrogen) 10 mg/dL (9.8-20.1); Calc. Creatinine Clearance 110 mL/min (70-130); Calcium 8.5 mg/dL (7.8-10.44); Carbon Dioxide 23 mmol/L (23-31); Chloride 106 mmol/L (98-107); Estimated GFR 97; Glucose 131 mg/dL (80-115); Potassium 3.4 mmol/L (3.5-5.1); Sodium 138 mmol/L (136-145)
[2023-04-06] MEDS: Acetaminophen/Codeine 30-300mg Tablet PO PRN ×2 (05:43→10:47)
[2023-04-06] MEDS: Levothyroxine Sodium 75 MCG TAB PO SCH (06:15)
[2023-04-06] MEDS: Pancrelipase DR 12,000 1 CAP PO SCH ×3 (08:26→18:09)
[2023-04-06] MEDS: Torsemide 10 MG TAB PO SCH (08:27)
[2023-04-06] MEDS: lamoTRIgine 100 MG TAB PO SCH (08:27)
[2023-04-06] MEDS: Estradiol 1 MG TAB PO SCH (08:27)
[2023-04-06] MEDS: Aripiprazole 15 MG TAB PO SCH (08:27)
[2023-04-06] MEDS: guanFACINE HCl 1 MG TAB PO SCH (08:28)
[2023-04-06] MEDS: Escitalopram Oxalate 20 mg Tablet PO SCH (08:28)
[2023-04-06] MEDS: Nebivolol HCl 5 MG TAB PO SCH (08:28)
[2023-04-06] MEDS: Potassium Chloride 10 MEQ TAB PO SCH ×2 (08:29→20:36)
[2023-04-06] MEDS: Famotidine 20 MG TAB PO SCH (08:29)
[2023-04-06] MEDS: Montelukast Sodium 10 mg Tablet PO SCH (08:29)
[2023-04-06] MEDS: Docusate 100 MG CAP PO SCH ×2 (08:30→20:36)
[2023-04-06] MEDS: Amiodarone 200 MG TAB PO SCH (08:30)
[2023-04-06] MEDS: Rosuvastatin 5 MG TAB PO SCH (08:36)
[2023-04-06] MEDS ORDERED: Dexlansoprazole [Dexilant] 60 MG Cap.Dr.Bp PO SCH (09:00)
[2023-04-06] MEDS: Cefepime 2 GM in Sodium Chloride 0.9% 100 ML IVPB SCH ×2 (10:41→20:37)
[2023-04-06] MEDS: Vancomycin 1 GM in Premix 1 BAG IVPB SCH ×2 (11:56→23:54)
[2023-04-06] MEDS: Methocarbamol 500 MG TAB PO PRN (20:39)
[2023-04-06 22:17] LABS: Vancomycin, Trough 12.6 ug/mL
[2023-04-07] MEDS: HYDROcodone/Acetaminophen 5/325 mg Tablet PO PRN (01:47)
[2023-04-07] MEDS: Morphine 4 MG/ML VIAL SLOW IVP PRN (05:12)
[2023-04-07] MEDS: Levothyroxine Sodium 75 MCG TAB PO SCH (05:13)
[2023-04-07] MEDS: Pancrelipase DR 12,000 1 CAP PO SCH ×3 (08:23→16:38)
[2023-04-07] MEDS: guanFACINE HCl 1 MG TAB PO SCH (08:23)
[2023-04-07] MEDS: Aripiprazole 15 MG TAB PO SCH (08:23)
[2023-04-07] MEDS: Amiodarone 200 MG TAB PO SCH (08:24)
[2023-04-07] MEDS: Nebivolol HCl 5 MG TAB PO SCH (08:24)
[2023-04-07] MEDS: Docusate 100 MG CAP PO SCH ×2 (08:24→20:14)
[2023-04-07] MEDS: Estradiol 1 MG TAB PO SCH (08:24)
[2023-04-07] MEDS: Potassium Chloride 10 MEQ TAB PO SCH ×2 (08:25→20:15)
[2023-04-07] MEDS: Famotidine 20 MG TAB PO SCH (08:25)
[2023-04-07] MEDS: lamoTRIgine 100 MG TAB PO SCH (08:25)
[2023-04-07] MEDS: Escitalopram Oxalate 20 mg Tablet PO SCH (08:25)
[2023-04-07] MEDS: Torsemide 10 MG TAB PO SCH (08:25)
[2023-04-07] MEDS: Montelukast Sodium 10 mg Tablet PO SCH (08:32)
[2023-04-07] MEDS: Cefepime 2 GM in Sodium Chloride 0.9% 100 ML IVPB SCH ×2 (10:04→21:39)
[2023-04-07] MEDS: Vancomycin 1 GM in Premix 1 BAG IVPB SCH ×2 (11:03→23:09)
[2023-04-07] MEDS ORDERED: Enoxaparin 40 MG (0.4 mL) SYRINGE SC SCH (12:00)
[2023-04-07] MEDS: HYDROcodone/Acetaminophen 10/325 mg Tablet PO PRN ×2 (13:59→20:15)
[2023-04-08] MEDS: Morphine 4 MG/ML VIAL SLOW IVP PRN (01:49)
[2023-04-08] MEDS: Acetaminophen/Codeine 30-300mg Tablet PO PRN (04:18)
[2023-04-08] MEDS: Levothyroxine Sodium 75 MCG TAB PO SCH (05:41)
[2023-04-08] MEDS ORDERED: Sodium Bicarbonate 0.5 MEQ/ML SDV 10 ML ONE (08:14)
[2023-04-08] MEDS ORDERED: Lidocaine 1% PF 5 ML VIAL ONE (08:15)
[2023-04-08] MEDS: lamoTRIgine 100 MG TAB PO SCH (08:17)
[2023-04-08] MEDS: Pancrelipase DR 12,000 1 CAP PO SCH ×3 (08:17→16:42)
[2023-04-08] MEDS: Rosuvastatin 5 MG TAB PO SCH (08:18)
[2023-04-08] MEDS: Potassium Chloride 10 MEQ TAB PO SCH ×3 (08:18→20:16)
[2023-04-08] MEDS: Estradiol 1 MG TAB PO SCH (08:18)
[2023-04-08] MEDS: Nebivolol HCl 5 MG TAB PO SCH (08:18)
[2023-04-08] MEDS: Amiodarone 200 MG TAB PO SCH (08:19)
[2023-04-08] MEDS: Montelukast Sodium 10 mg Tablet PO SCH (08:19)
[2023-04-08] MEDS: Famotidine 20 MG TAB PO SCH (08:19)
[2023-04-08] MEDS: guanFACINE HCl 1 MG TAB PO SCH (08:19)
[2023-04-08] MEDS: Docusate 100 MG CAP PO SCH ×2 (08:19→20:16)
[2023-04-08] MEDS: Aripiprazole 15 MG TAB PO SCH (08:19)
[2023-04-08] MEDS: Escitalopram Oxalate 20 mg Tablet PO SCH (08:19)
[2023-04-08 08:25] LABS: #Basophils 0.1 thou/uL (0.0-0.2); #Eosinphils 0.2 thou/uL (0.0-0.7); #Monocytes 1.1 thou/uL (0.11-0.59); #Neutrophils 5.1 thou/uL (1.40-6.50); %Basophils 0.6 % (0.0-1.0); %Eosinophils 2.1 % (0.0-10.0); %Lymphocytes 33.8 % (21.0-51.0); %Monocytes 11.4 % (0.0-10.0); %Neutrophils 51.8 % (42.0-75.0); Hematocrit 38.4 % (36.0-47.0); Hemoglobin 12.8 g/dL (12.0-16.0); Mean Corpuscular HGB CONC 33.3 g/dL (32.0-36.0); Mean Corpuscular Hemoglobin 31.8 pg (27.0-31.0); Mean Corpuscular Volume 95.5 fl (78.0-98.0); Mean Platelet Volume 10.5 fL (7.4-10.4); Platelet Count 325 10x3/uL (130-400); RBC Distribution Width 13.8 % (11.5-14.5); Red Blood Cell (RBC) Count 4.02 mill/uL (4.20-5.40); White Blood Cell (WBC) Count 9.9 10x3/uL (4.8-10.8)
[2023-04-08] MEDS: Torsemide 10 MG TAB PO SCH (08:27)
[2023-04-08 08:46] LABS: ALT (SGPT) 13 U/L (8-55); AST (SGOT) 16 U/L (5-34); Albumin 3.2 g/dL (3.4-4.8); Alkaline Phosphatase 74 U/L (40-110); Anion Gap 14 mmol/L (10-20); BUN (Urea Nitrogen) 11 mg/dL (9.8-20.1); Bilirubin, Total 0.3 mg/dL (0.2-1.2); Calc. Creatinine Clearance 110 mL/min (70-130); Calcium 8.3 mg/dL (7.8-10.44); Carbon Dioxide 25 mmol/L (23-31); Chloride 104 mmol/L (98-107); Estimated GFR 97; Globulin 2.9 g/dL (2.4-3.5); Glucose 81 mg/dL (80-115); Potassium 3.3 mmol/L (3.5-5.1); Protein, Total 6.1 g/dL (5.8-8.1); Sodium 140 mmol/L (136-145)
[2023-04-08] MEDS ORDERED: Iopamidol 30 ML ONE (09:16)
[2023-04-08] MEDS: Cefepime 2 GM in Sodium Chloride 0.9% 100 ML IVPB SCH (10:18)
[2023-04-08 11:02] LABS: Vancomycin, Trough 22.4 ug/mL
[2023-04-08] MEDS: Vancomycin 1 GM in Premix 1 BAG IVPB SCH (11:05)
[2023-04-08] MEDS: HYDROcodone/Acetaminophen 10/325 mg Tablet PO PRN ×2 (11:44→16:45)
[2023-04-08] MEDS: Oxacillin 2 GM in Sodium Chloride 0.9% 100 ML IVPB SCH ×3 (13:52→20:16)
[2023-04-09] MEDS: Oxacillin 2 GM in Sodium Chloride 0.9% 100 ML IVPB SCH ×6 (00:46→21:37)
[2023-04-09] MEDS: HYDROcodone/Acetaminophen 10/325 mg Tablet PO PRN ×3 (02:58→21:36)
[2023-04-09] MEDS: Levothyroxine Sodium 75 MCG TAB PO SCH (05:05)
[2023-04-09] MEDS: Acetaminophen/Codeine 30-300mg Tablet PO PRN (05:10)
[2023-04-09] MEDS: Amiodarone 200 MG TAB PO SCH ×2 (08:35→21:00)
[2023-04-09] MEDS: Aripiprazole 15 MG TAB PO SCH ×2 (08:35→21:00)
[2023-04-09] MEDS: Docusate 100 MG CAP PO SCH ×2 (08:35→21:00)
[2023-04-09] MEDS: Pancrelipase DR 12,000 1 CAP PO SCH ×3 (08:35→17:33)
[2023-04-09] MEDS: Famotidine 20 MG TAB PO SCH (08:36)
[2023-04-09] MEDS: Estradiol 1 MG TAB PO SCH (08:36)
[2023-04-09] MEDS: Escitalopram Oxalate 20 mg Tablet PO SCH ×2 (08:36→21:00)
[2023-04-09] MEDS: Montelukast Sodium 10 mg Tablet PO SCH ×2 (08:37→21:00)
[2023-04-09] MEDS: guanFACINE HCl 1 MG TAB PO SCH ×2 (08:37→20:59)
[2023-04-09] MEDS: lamoTRIgine 100 MG TAB PO SCH ×2 (08:37→20:58)
[2023-04-09] MEDS: Nebivolol HCl 5 MG TAB PO SCH (08:37)
[2023-04-09] MEDS: Rosuvastatin 5 MG TAB PO SCH (08:38)
[2023-04-09] MEDS: Torsemide 10 MG TAB PO SCH (08:38)
[2023-04-09] MEDS: Potassium Chloride 10 MEQ TAB PO SCH ×2 (08:38→21:00)
[2023-04-09] MEDS ORDERED: clonazePAM 0.5 MG TAB PO PRN (11:48)
[2023-04-09] MEDS ORDERED: Amlodipine 5 MG TAB PO SCH (17:30)
[2023-04-09] MEDS: Apixaban 5 MG TAB PO SCH (20:59)
[2023-04-09] MEDS ORDERED: Rosuvastatin 5 MG TAB PO SCH (21:00)
[2023-04-09] MEDS: clonazePAM 0.5 MG TAB PO PRN (21:37)
[2023-04-09] MEDS: Morphine 4 MG/ML VIAL SLOW IVP PRN (23:29)
[2023-04-10] MEDS: Oxacillin 2 GM in Sodium Chloride 0.9% 100 ML IVPB SCH ×6 (02:49→20:37)
[2023-04-10] MEDS: Levothyroxine Sodium 75 MCG TAB PO SCH (05:44)
[2023-04-10] MEDS: Acetaminophen/Codeine 30-300mg Tablet PO PRN ×3 (06:27→20:35)
[2023-04-10] MEDS: Apixaban 5 MG TAB PO SCH ×2 (08:45→20:32)
[2023-04-10] MEDS: HYDROcodone/Acetaminophen 10/325 mg Tablet PO PRN (08:45)
[2023-04-10] MEDS: Docusate 100 MG CAP PO SCH ×2 (08:46→20:33)
[2023-04-10] MEDS: Nebivolol HCl 5 MG TAB PO SCH (08:46)
[2023-04-10] MEDS: Torsemide 10 MG TAB PO SCH (08:47)
[2023-04-10] MEDS: Potassium Chloride 10 MEQ TAB PO SCH ×2 (08:47→20:34)
[2023-04-10] MEDS: Famotidine 20 MG TAB PO SCH (08:47)
[2023-04-10] MEDS: Pancrelipase DR 12,000 1 CAP PO SCH ×3 (08:47→16:57)
[2023-04-10] MEDS: Estradiol 1 MG TAB PO SCH (08:47)
[2023-04-10] MEDS ORDERED: Amlodipine 5 MG TAB PO SCH ×2 (09:00→14:45)
[2023-04-10] MEDS: Amiodarone 200 MG TAB PO SCH (20:32)
[2023-04-10] MEDS: Aripiprazole 15 MG TAB PO SCH (20:32)
[2023-04-10] MEDS: Escitalopram Oxalate 20 mg Tablet PO SCH (20:33)
[2023-04-10] MEDS: lamoTRIgine 100 MG TAB PO SCH (20:33)
[2023-04-10] MEDS: guanFACINE HCl 1 MG TAB PO SCH (20:33)
[2023-04-10] MEDS: Montelukast Sodium 10 mg Tablet PO SCH (20:34)
[2023-04-10] MEDS: clonazePAM 0.5 MG TAB PO PRN (20:36)
[2023-04-11] MEDS: Oxacillin 2 GM in Sodium Chloride 0.9% 100 ML IVPB SCH ×4 (01:11→12:55)
[2023-04-11] MEDS: Levothyroxine Sodium 75 MCG TAB PO SCH (04:37)
[2023-04-11] MEDS: HYDROcodone/Acetaminophen 10/325 mg Tablet PO PRN ×2 (04:37→12:55)
[2023-04-11 07:45] LABS: #Eosinphils 0.2 thou/uL (0.0-0.7); #Neutrophils 3.9 thou/uL (1.40-6.50); %Basophils 0.5 % (0.0-1.0); %Eosinophils 2.6 % (0.0-10.0); %Lymphocytes 35.5 % (21.0-51.0); %Monocytes 11.9 % (0.0-10.0); %Neutrophils 49.1 % (42.0-75.0); Hematocrit 36.1 % (36.0-47.0); Hemoglobin 11.8 g/dL (12.0-16.0); Mean Corpuscular HGB CONC 32.7 g/dL (32.0-36.0); Mean Corpuscular Hemoglobin 31.1 pg (27.0-31.0); Mean Corpuscular Volume 95.3 fl (78.0-98.0); Mean Platelet Volume 9.3 fL (7.4-10.4); Platelet Count 334 10x3/uL (130-400); RBC Distribution Width 13.3 % (11.5-14.5); Red Blood Cell (RBC) Count 3.79 mill/uL (4.20-5.40)
[2023-04-11 08:05] LABS: Anion Gap 12 mmol/L (10-20); BUN (Urea Nitrogen) 10 mg/dL (9.8-20.1); Calc. Creatinine Clearance 98 mL/min (70-130); Calcium 8.8 mg/dL (7.8-10.44); Carbon Dioxide 27 mmol/L (23-31); Chloride 105 mmol/L (98-107); Estimated GFR 90; Glucose 88 mg/dL (80-115); Magnesium 2.3 mg/dL (1.6-2.6); Sodium 140 mmol/L (136-145)
[2023-04-11] MEDS ORDERED: Amlodipine 5 MG TAB PO SCH (09:00)
[2023-04-11] MEDS: Nebivolol HCl 5 MG TAB PO SCH (09:04)
[2023-04-11] MEDS: Torsemide 10 MG TAB PO SCH (09:04)
[2023-04-11] MEDS: HYDROcodone/Acetaminophen 5/325 mg Tablet PO PRN (09:07)
[2023-04-11] MEDS: Potassium Chloride 10 MEQ TAB PO SCH (09:09)
[2023-04-11] MEDS: Famotidine 20 MG TAB PO SCH (09:10)
[2023-04-11] MEDS: Estradiol 1 MG TAB PO SCH (09:10)
[2023-04-11] MEDS: Pancrelipase DR 12,000 1 CAP PO SCH ×2 (09:11→12:56)
[2023-04-11] MEDS: Docusate 100 MG CAP PO SCH (09:11)
[2023-04-11 12:01] VITALS: BP 141/69; TEMP 97.6
== END 2023-04-11 16:24 | disposition home or self-care (01) | DRG 856 ==
LOC: ERS 02:00 → ERHOLD 05:57 → T4-B 07:44
PROVIDERS: ADMIT Student in an Organized Health Care Education/Training Program; ATTEND Hospitalist
PROC: 009U0ZZ Drainage of Spinal Canal, Open Approach (ICD-10-PCS; principal; 2023-04-05)
PROC: 0SP004Z Removal of Internal Fixation Device from Lumbar Vertebral Joint, Open Approach (ICD-10-PCS; 2023-04-05)
PROC: 02HV33Z Insertion of Infusion Device into Superior Vena Cava, Percutaneous Approach (ICD-10-PCS; 2023-04-08)
PROC: B5181ZA Fluoroscopy of Superior Vena Cava using Low Osmolar Contrast, Guidance (ICD-10-PCS; 2023-04-08)
DX: T81.42XA Infection following a procedure, deep incisional surgical site, initial encounter (principal); G06.1 Intraspinal abscess and granuloma; I48.91 Unspecified atrial fibrillation; I25.10 Atherosclerotic heart disease of native coronary artery without angina pectoris; I10 Essential (primary) hypertension; Z88.2 Allergy status to sulfonamides; Z88.8 Allergy status to other drugs, medicaments and biological substances; Z79.899 Other long term (current) drug therapy; Z79.82 Long term (current) use of aspirin; Z90.89 Acquired absence of other organs; Z90.49 Acquired absence of other specified parts of digestive tract; Z90.710 Acquired absence of both cervix and uterus; Z82.49 Family history of ischemic heart disease and other diseases of the circulatory system; K21.9 Gastro-esophageal reflux disease without esophagitis; E03.9 Hypothyroidism, unspecified; F32.A Depression, unspecified; F41.9 Anxiety disorder, unspecified; Z66 Do not resuscitate; B95.61 Methicillin susceptible Staphylococcus aureus infection as the cause of diseases classified elsewhere; E87.6 Hypokalemia; M79.7 Fibromyalgia
CPT/HCPCS: 36415; 36569; 72131; 72158; 80048; 80053; 80202; 82565; 83605; 83735; 85025; 85610; 85730; 86140; 87040; 87070; 87077; 87186; 87205; 93005; 96374; 96375; A9579; C1751; C1887; J0360; J0692; J1100; J1170; J1650; J2270; J2405; J2543; J2700; J2704; J3010; J3370; J3370-JW; J3490; J7120; Q9967

== ENCOUNTER 2023-09-05 10:22 | Outpatient (CLI) | payer MEDICARE ==
[2023-09-05] MEDS ORDERED: Magnevist 469MG/ML 20 ML VIAL ONE (10:27)
== END 2023-09-05 10:23 | disposition home or self-care (01) ==
LOC: MRI 10:22
PROVIDERS: ATTEND Surgery
DX: M51.16 Intervertebral disc disorders with radiculopathy, lumbar region (principal); M48.061 Spinal stenosis, lumbar region without neurogenic claudication; M85.68 Other cyst of bone, other site; Z98.1 Arthrodesis status
CPT/HCPCS: 72158; A9579

== ENCOUNTER 2023-09-23 10:21 | Emergency (ER) | payer MEDICARE ==
[2023-09-23 11:41] LABS: #Basophils 0.06 10x3/uL (0.0-0.2); %Basophils 0.7 % (0.0-1.0); %Eosinophils 1.4 % (0.0-10.0); %Lymphocytes 32.2 % (21.0-51.0); %Monocytes 11.9 % (0.0-10.0); %Neutrophils 53.4 % (42.0-75.0); Hematocrit 36.3 % (36.0-47.0); Hemoglobin 11.6 g/dL (12.0-16.0); Mean Corpuscular Hemoglobin 32.2 pg (27.0-31.0); Mean Corpuscular Volume 100.8 fL (78.0-98.0); Mean Platelet Volume 9.3 fL (7.4-10.4); Platelet Count 316 10x3/uL (130-400); RBC Distribution Width 14.3 % (11.5-14.5)
[2023-09-23 12:01] LABS: ALT (SGPT) 17 U/L (8-55); AST (SGOT) 18 U/L (5-34); Albumin 3.5 g/dL (3.4-4.8); Alkaline Phosphatase 67 U/L (40-110); Anion Gap 15 mmol/L (10-20); BUN (Urea Nitrogen) 15 mg/dL (9.8-20.1); Bilirubin, Total 0.3 mg/dL (0.2-1.2); Calc. Creatinine Clearance 0 mL/min (70-130); Carbon Dioxide 20 mmol/L (23-31); Chloride 109 mmol/L (98-107); Estimated GFR 86; Globulin 3.5 g/dL (2.4-3.5); Glucose 98 mg/dL (80-115); Potassium 4.4 mmol/L (3.5-5.1); Sodium 140 mmol/L (136-145)
[2023-09-23 14:08] LABS: Bilirubin Negative (Negative); Blood, Urine Negative (Negative); CAUTI Indications for Culture Immunosuppressed; Clarity Turbid (Clear); Glucose, Urine (Dipstick) Normal (Negative); Ketone, Urine Negative (Negative); Leukocyte 250 Leu/uL (Negative); Nitrite Negative (Negative); Protein, Urine (Dipstick) Negative (Neg-Trace); RBC/HPF 0-3 HPF (0-3); Specific Gravity, Urine 1.025 (1.002-1.036); Squamous Epithelial 21-50 HPF (0-3); Urobilinogen Normal mg/dL (Less than 2); pH, Urine 5.5 (5.0-9.0)
[2023-09-23 14:12] LABS: Bacteria/HPF 1+ HPF (None Seen)
[2023-09-23 14:13] LABS: Urine Culture Reflex Yes Yes
== END 2023-09-23 15:06 | disposition home or self-care (01) ==
LOC: ERS 10:21
DX: I87.8 Other specified disorders of veins (principal); I48.91 Unspecified atrial fibrillation; Z79.01 Long term (current) use of anticoagulants
CPT/HCPCS: 36415; 80053; 81001; 83880; 85025; 85379; 86141; 87086; 99283

== ENCOUNTER 2024-01-24 08:41 | Outpatient (CLI) | payer MEDICARE ==
[2024-01-24] MEDS ORDERED: E-Z-HD 98% W/W 340GM BOT (x-ray ONLY) ONE (08:53)
[2024-01-24] MEDS ORDERED: Barium Sulfate 96% 176 GM BOT (xray ONLY) ONE (08:54)
== END 2024-01-24 08:42 | disposition home or self-care (01) ==
LOC: RAD 08:41
PROVIDERS: ATTEND Internal Medicine Gastroenterology
DX: K21.9 Gastro-esophageal reflux disease without esophagitis (principal); K86.1 Other chronic pancreatitis; M54.50 Low back pain, unspecified; K59.00 Constipation, unspecified; R13.10 Dysphagia, unspecified; D64.9 Anemia, unspecified; Z63.79 Other stressful life events affecting family and household
CPT/HCPCS: 74220

== ENCOUNTER 2024-04-13 07:05 | Emergency (ER) | payer MEDICARE ==
[2024-04-13] MEDS ORDERED: Morphine 2 MG/ML VIAL ONE (07:52)
== END 2024-04-13 09:32 | disposition home or self-care (01) ==
LOC: ERS 07:05
DX: S80.02XA Contusion of left knee, initial encounter (principal); K21.9 Gastro-esophageal reflux disease without esophagitis; I48.91 Unspecified atrial fibrillation; Z87.891 Personal history of nicotine dependence; W01.0XXA Fall on same level from slipping, tripping and stumbling without subsequent striking against object, initial encounter; Y93.01 Activity, walking, marching and hiking; Y92.009 Unspecified place in unspecified non-institutional (private) residence as the place of occurrence of the external cause
CPT/HCPCS: 73564; 96374; 99283; J2272

== ENCOUNTER 2024-04-20 20:20 | Emergency (ER) | payer MEDICARE ==
[~2024-04-20 20:20] MED LIST: Iopamidol-370 76% 500 ML MDV (1 ML CHARGE) ONE
[2024-04-20] MEDS ORDERED: Ketorolac Tromethamine 30 MG (1 mL) VIAL ONE (22:51)
[2024-04-20 22:55] LABS: #Basophils 0.07 10x3/uL (0.0-0.2); %Basophils 0.8 % (0.0-1.0); %Eosinophils 1.3 % (0.0-10.0); %Lymphocytes 28.3 % (21.0-51.0); %Monocytes 10.2 % (0.0-10.0); Hematocrit 34.5 % (36.0-47.0); Hemoglobin 11.2 g/dL (12.0-16.0); Mean Corpuscular HGB CONC 32.5 g/dL (32.0-36.0); Mean Corpuscular Hemoglobin 31.6 pg (27.0-31.0); Mean Corpuscular Volume 97.5 fL (78.0-98.0); Mean Platelet Volume 9.2 fL (7.4-10.4); Platelet Count 321 10x3/uL (130-400); RBC Distribution Width 13.2 % (11.5-14.5); Red Blood Cell (RBC) Count 3.54 mill/uL (4.20-5.40)
[2024-04-20 23:18] LABS: CRP,High Sensitivity (Inhouse) 0.81 mg/dL (< or = 0.5)
[2024-04-20 23:19] LABS: ALT (SGPT) 14 U/L (Less than 34); AST (SGOT) 23 U/L (11-34); Albumin 3.6 g/dL (3.1-4.5); Alkaline Phosphatase 71 U/L (40-110); Anion Gap 14 mmol/L (10-20); BUN (Urea Nitrogen) 16 mg/dL (9.8-20.1); Bilirubin, Total 0.3 mg/dL (0.3-1.2); Calc. Creatinine Clearance 0 mL/min (70-130); Calcium 8.9 mg/dL (7.8-10.44); Carbon Dioxide 25 mmol/L (23-31); Chloride 105 mmol/L (98-107); Estimated GFR 77; Globulin 3.2 g/dL (2.4-3.5); Glucose 99 mg/dL (80-115); Protein, Total 6.8 g/dL (5.8-8.1); Sodium 140 mmol/L (136-145)
== END 2024-04-21 01:05 | disposition home or self-care (01) ==
LOC: ERS 20:20
DX: S80.02XA Contusion of left knee, initial encounter (principal); W18.30XA Fall on same level, unspecified, initial encounter
CPT/HCPCS: 73564; 73701; 80053; 83605; 85025; 86141; 87040; 96374; 99284; J1885; Q9967

== ENCOUNTER 2024-05-24 08:32 | Outpatient (CLI) | payer MEDICARE | END 2024-05-24 08:33 | disposition home or self-care (01) | LOC: BICRAD 08:32 | PROVIDERS: ATTEND Nurse Practitioner Family | DX: I48.0 Paroxysmal atrial fibrillation (principal) | CPT/HCPCS: 71046 ==

== ENCOUNTER 2024-11-29 12:29 | Emergency (ER) | payer MEDICARE ==
[2024-11-29 14:13] LABS: #Basophils 0.05 10x3/uL (0.0-0.2); #Eosinophils 0.24 10x3/uL (0.0-0.7); #Monocytes 0.56 10x3/uL (0.11-0.59); #Neutrophils 5.06 10x3/uL (1.40-6.50); %Basophils 0.6 % (0.0-1.0); %Eosinophils 2.9 % (0.0-10.0); %Lymphocytes 27.5 % (21.0-51.0); %Monocytes 6.8 % (0.0-10.0); %Neutrophils 61.8 % (42.0-75.0); Hematocrit 32.9 % (36.0-47.0); Hemoglobin 10.5 g/dL (12.0-16.0); Mean Corpuscular Hemoglobin 31.2 pg (27.0-31.0); Mean Corpuscular Volume 97.6 fL (78.0-98.0); Platelet Count 523 10x3/uL (130-400); Red Blood Cell (RBC) Count 3.37 mill/uL (4.20-5.40); White Blood Cell (WBC) Count 8.19 10x3/uL (4.8-10.8)
[2024-11-29 14:28] LABS: CAUTI Indications for Culture Pelvic or flank pain; Glucose, Urine (Dipstick) Normal (Negative); Leukocyte Negative Leu/uL (Negative); Protein, Urine (Dipstick) Negative (Neg-Trace); RBC/HPF 0-3 HPF (0-3); Specific Gravity, Urine 1.003 (1.002-1.036); WBC/HPF 0-3 HPF (0-3)
[2024-11-29 14:34] LABS: Bacteria/HPF Rare-Few HPF (None Seen); Urine Culture Reflex No No
[2024-11-29 14:36] LABS: ALT (SGPT) 17 U/L (Less than 34); AST (SGOT) 27 U/L (11-34); Albumin 3.5 g/dL (3.1-4.5); Alkaline Phosphatase 111 U/L (40-110); Anion Gap 14 mmol/L (10-20); BUN (Urea Nitrogen) 10 mg/dL (9.8-20.1); Bilirubin, Total 0.3 mg/dL (0.3-1.2); Calc. Creatinine Clearance 0 mL/min (70-130); Calcium 9.4 mg/dL (7.8-10.44); Carbon Dioxide 23 mmol/L (23-31); Chloride 108 mmol/L (98-107); Globulin 3.8 g/dL (2.4-3.5); Glucose 89 mg/dL (80-115); Lipase 9 U/L (8-78); Potassium 4.1 mmol/L (3.5-5.1); Sodium 141 mmol/L (136-145)
== END 2024-11-29 19:01 ==
LOC: ERS 12:29
DX: K91.870 Postprocedural hematoma of a digestive system organ or structure following a digestive system procedure (principal); K21.9 Gastro-esophageal reflux disease without esophagitis; I48.91 Unspecified atrial fibrillation; Z79.01 Long term (current) use of anticoagulants
CPT/HCPCS: 71045; 74177; 80053; 81001; 83690; 83880; 84484; 85025; 93005

== ENCOUNTER 2025-02-21 13:33 | Outpatient (CLI) | payer MEDICARE ==
[2025-02-21] MEDS ORDERED: E-Z-HD 98% W/W 340GM BOT (x-ray ONLY) ONE (13:37)
[2025-02-21] MEDS ORDERED: Barium Sulfate 96% 176 GM BOT (xray ONLY) ONE (13:37)
== END 2025-02-21 13:34 | disposition home or self-care (01) ==
LOC: RAD 13:33
PROVIDERS: ATTEND Internal Medicine Gastroenterology
DX: R09.A2 Foreign body sensation, throat (principal)
CPT/HCPCS: 74220